=== PATIENT | female | born 1970 | race Hispanic/Latino ===

== ENCOUNTER 2018-02-25 15:26 | Emergency (ER) | payer SELFPAY ==
[2018-02-25 16:55] LABS: Absolute Lymphocytes (CBC) 0.8 K/uL (0.7-4.9); Absolute Monocytes 0.4 K/uL (0.1-1.3); Absolute Neutrophil 8.9 K/uL (1.8-8.0); Basophils % 0.2 % (0-1.3); Eosinophils % 1.2 % (0-4.4); Hematocrit 43.9 % (36.0-45.0); Lymphocytes % 8.1 % (15.3-44.8); MCH 28.1 pg (27.0-35.0); MCV 85.1 fL (80-100); MPV 9.5 fL (7.6-11.3); Monocytes % 3.8 % (3.3-12.3); RBC Red Blood Cell Count 5.16 M/uL (3.86-4.86)
[2018-02-25 17:09] LABS: Potassium 3.2 mEq/L (3.6-5.0)
[2018-02-25] MEDS ORDERED: HYDROCODONE/APAP 10/325 TAB ONE (17:23)
[2018-02-25 18:12] LABS: Urine Blood TRACE (NEG); Urine Glucose NEGATIVE (NEG); Urine Protein NEGATIVE (NEG)
--- NOTE | 2018-02-25 18:16 | ER ---
Nurse's Notes [facility] Name: Shannon Gill Age: 47 yrs Sex: Female : 1970 Arrival Date: 02/25/2018 Time: 15:30 Bed 25 Private MD: Diagnosis: Other chronic pain Presentation: 02/25 15:37 Presenting complaint: Patient states: Pain all over body that has been for years but aj has gotten worse recently. Reports burning sensation in bilateral legs and arms. Transition of care: patient was not received from another setting of care. Onset of symptoms. Care prior to arrival: None. 15:37 Method Of Arrival: Ambulatory 15:37 Acuity: JOSSY 3 aj 18:30 Initial Sepsis Screen: Does the patient meet any 2 criteria? No. Patient's initial tl3 sepsis screen is negative. Does the patient have a suspected source of infection? No. Patient's initial sepsis screen is negative. Triage Assessment: 15:39 General: Appears in no apparent distress. uncomfortable, Behavior is calm, cooperative, aj appropriate for age. Pain: Complains of pain in head, chest, abdomen, pelvis, right arm, right hand, left arm, left hand, right leg, right foot, left leg and left foot. Neuro: Level of Consciousness is awake, alert, obeys commands, Oriented to person, place, time, situation, Appropriate for age. Respiratory: Airway is patent Respiratory effort is even, unlabored, Respiratory pattern is regular, symmetrical. Derm: Skin is intact, is healthy with good turgor, Skin is pink, warm \T\ dry. normal. Musculoskeletal: Reports pain in entire body. 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 - Social history:: Smoking status: Patient uses tobacco products, smokes one pack cigarettes per day. Screenin:27 Abuse screen: Denies threats or abuse. Nutritional screening: No deficits noted. tl3 Tuberculosis screening: No symptoms or risk factors identified. Fall Risk None identified. Assessment: 16:27 General: Appears distressed, uncomfortable, well groomed, well developed, well tl3 nourished, Behavior is cooperative, appropriate for age, agitated, restless. Pain: Complains of pain in generalized pain all over. Neuro: Level of Consciousness is awake, alert, obeys commands, Oriented to person, place, time, situation, Appropriate for age. Cardiovascular: Heart tones S1 S2 present Patient's skin is warm and dry. Respiratory: Airway is patent Trachea midline Respiratory effort is even, unlabored, Respiratory pattern is regular, symmetrical, Breath sounds are clear bilaterally. GI: No signs and/or symptoms were reported involving the gastrointestinal system. : No signs and/or symptoms were reported regarding the genitourinary system. EENT: No signs and/or symptoms were reported regarding the EENT system. Derm: No signs and/or symptoms reported regarding the dermatologic system. Musculoskeletal: Reports pain in left subscapular area, left low back and left mid back. 16:33 Reassessment: pt dx with cervical cancer six years ago did not complete treatments, tl3 still has port in place to right upper chest. 17:26 Reassessment: Patient appears in no apparent distress at this time. No changes from tl3 previously documented assessment. Patient and/or family updated on plan of care and expected duration. Pain level reassessed. Patient is alert, oriented x 3, equal unlabored respirations, skin warm/dry/pink. 17:53 Reassessment: Patient appears in no apparent distress at this time. No changes from tl3 previously documented assessment. Patient and/or family updated on plan of care and expected duration. Pain level reassessed. Patient is alert, oriented x 3, equal unlabored respirations, skin warm/dry/pink. pt sleeping. 18:28 Reassessment: Patient appears in no apparent distress at this time. No changes from tl3 previously documented assessment. Patient and/or family updated on plan of care and expected duration. Pain level reassessed. Patient is alert, oriented x 3, equal unlabored respirations, skin warm/dry/pink. Johnathan at bedside to discuss POC with pt and family. Vital Signs: 15:39 BP 149 / 113; Pulse 114; Resp 23; Temp 97.9; Pulse Ox 97% on R/A; Weight 85.73 kg; aj Height 5 ft. 6 in. (167.64 cm); 16:27 BP 124 / 90; Pulse 90; Resp 20; Pulse Ox 95% ; tl3 16:33 Temp 99.8; tl3 17:26 BP 121 / 78; Pulse 104; Resp 16; Pulse Ox 100% on R/A; tl3 17:53 BP 134 / 96; Pulse 92; Resp 18; Pulse Ox 96% on R/A; tl3 18:28 BP 128 / 103; Pulse 98; Resp 18; Pulse Ox 99% ; tl3 15:39 Body Mass Index 30.51 (85.73 kg, 167.64 cm) ED Course: 15:30 Patient arrived in ED. rg4 15:38 Triage completed. 15:39 Arm band placed on right wrist. Patient placed in waiting room, Patient notified of wait time. 15:59 Sil Camara, RN is Primary Nurse. tl3 16:00 Johnathan Law NP is PHCP. pm1 16:00 Yehuda Jarrett MD is Attending Physician. pm1 16:27 Patient has correct armband on for positive identification. Bed in low position. Call tl3 light in reach. Side rails up X 1. Adult w/ patient. Pulse ox on. NIBP on. Door closed. Lights dimmed. Warm blanket given. 16:27 No provider procedures requiring assistance completed. tl3 16:55 No apparent distress. No apparent distress. Resting quietly. Awaiting lab results. tl3 16:55 Inserted saline lock: 22 gauge in right wrist, using aseptic technique. tl3 18:28 IV discontinued, intact, bleeding controlled, No redness/swelling at site. Pressure tl3 dressing applied. Administered Medications: 17:26 Drug: [place] 10 mg-325 mg 1 tabs Route: PO; tl3 17:54 Follow up: Response: No adverse reaction; Pain is decreased tl3 Outcome: 18:15 Discharge ordered by . pm1 18:28 Discharged to home ambulatory. tl3 18:28 Condition: good 18:28 Discharge instructions given to patient, family, Instructed on discharge instructions, follow up and referral plans. medication usage, Demonstrated understanding of instructions, follow-up care, medications, Prescriptions given X 1. 18:30 Patient left the ED. tl3 Signatures: Bailey Potts RN RN Johnathan Law NP SOLUTIONS CONSULTANT pm1 Sidra Mooney rg4 Sil Camara RN RN tl3
--- NOTE | 2018-02-25 18:16 | EDPHYS ---
Physician Documentation [facility] Name: Shannon Gill Age: 47 yrs Sex: Female : 1970 Arrival Date: 02/25/2018 Time: 15:30 Bed 25 Private MD: ED Physician Yehuda Jarrett HPI: 02/25 17:36 This 47 yrs old Female presents to ER via Ambulatory with complaints of Pain pm1 All Over. 17:36 Patient reports generalized pain all over her body for multiple years. Patient reports pm1 her pain is worse. Patient with chronic pain to back and palmar surface of her feet. 17:36 No chest pain or shortness of breath. No headache. 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 - Social history:: Smoking status: Patient uses tobacco products, smokes one pack cigarettes per day. ROS: 17:36 Constitutional: Negative for fever, chills, and weight loss. Generalized pain all over pm1 body, primarily to back and soles of feet Eyes: Negative for injury, pain, redness, and discharge, ENT: Negative for injury, pain, and discharge, Neck: Negative for injury, pain, and swelling, Cardiovascular: Negative for chest pain, palpitations, and edema, Respiratory: Negative for shortness of breath, cough, wheezing, and pleuritic chest pain, Abdomen/GI: Negative for abdominal pain, nausea, vomiting, diarrhea, and constipation, Back: Negative for injury and pain, MS/Extremity: Negative for injury and deformity, Skin: Negative for injury, rash, and discoloration, Neuro: Negative for headache, weakness, numbness, tingling, and seizure. Exam: 17:36 Constitutional: This is a well developed, well nourished patient who is awake, alert, pm1 and in no acute distress. Head/Face: Normocephalic, atraumatic. Eyes: Pupils equal round and reactive to light, extra-ocular motions intact. Lids and lashes normal. Conjunctiva and sclera are non-icteric and not injected. Cornea within normal limits. Periorbital areas with no swelling, redness, or edema. ENT: Nares patent. No nasal discharge, no septal abnormalities noted. Tympanic membranes are normal and external auditory canals are clear. Oropharynx with no redness, swelling, or masses, exudates, or evidence of obstruction, uvula midline. Mucous membranes moist. Neck: Trachea midline, no thyromegaly or masses palpated, and no cervical lymphadenopathy. Supple, full range of motion without nuchal rigidity, or vertebral point tenderness. No Meningismus. Chest/axilla: Normal chest wall appearance and motion. Nontender with no deformity. No lesions are appreciated. Cardiovascular: Regular rate and rhythm with a normal S1 and S2. No gallops, murmurs, or rubs. Normal PMI, no JVD. No pulse deficits. Respiratory: Lungs have equal breath sounds bilaterally, clear to auscultation and percussion. No rales, rhonchi or wheezes noted. No increased work of breathing, no retractions or nasal flaring. Abdomen/GI: Soft, non-tender, with normal bowel sounds. No distension or tympany. No guarding or rebound. No evidence of tenderness throughout. Back: No spinal tenderness. No costovertebral tenderness. Full range of motion. Skin: Warm, dry with normal turgor. Normal color with no rashes, no lesions, and no evidence of cellulitis. MS/ Extremity: Pulses equal, no cyanosis. Neurovascular intact. Full, normal range of motion. 17:36 Neuro: Orientation: is normal, Mentation: is normal, Motor: is normal, moves all fours, Sensation: is normal, no obvious gross deficits. 17:36 Psych: Behavior/mood is anxious, Affect is animated, Oriented to person, place, time, Patient has no thoughts/intents to harm self or others. Vital Signs: 15:39 BP 149 / 113; Pulse 114; Resp 23; Temp 97.9; Pulse Ox 97% on R/A; Weight 85.73 kg; aj Height 5 ft. 6 in. (167.64 cm); 16:27 BP 124 / 90; Pulse 90; Resp 20; Pulse Ox 95% ; tl3 16:33 Temp 99.8; tl3 17:26 BP 121 / 78; Pulse 104; Resp 16; Pulse Ox 100% on R/A; tl3 17:53 BP 134 / 96; Pulse 92; Resp 18; Pulse Ox 96% on R/A; tl3 18:28 BP 128 / 103; Pulse 98; Resp 18; Pulse Ox 99% ; tl3 15:39 Body Mass Index 30.51 (85.73 kg, 167.64 cm) aj MDM: 16:00 Patient medically screened. pm1 18:14 Data reviewed: vital signs. Data interpreted: Pulse oximetry: on room air is 96 %. pm1 Interpretation: normal. Counseling: I had a detailed discussion with the patient and/or guardian regarding: the historical points, exam findings, and any diagnostic results supporting the discharge/admit diagnosis, lab results, the need for outpatient follow up, to return to the emergency department if symptoms worsen or persist or if there are any questions or concerns that arise at home. 02/25 16:20 Order name: CBC with Diff; Complete Time: 17:11 pm1 02/25 16:20 Order name: BMP; Complete Time: 17:11 pm1 02/25 16:20 Order name: Urine Dipstick-Ancillary (obtain specimen); Complete Time: 16:55 pm1 02/25 17:02 Order name: Urine Dipstick--Ancillary (enter results); Complete Time: 18:14 bd 02/25 17:02 Order name: Urine --Ancillary (enter results); Complete Time: 18:14 bd 02/25 16:20 Order name: Urine Test (obtain specimen); Complete Time: 16:55 pm1 Administered Medications: 17:26 Drug: [place] 10 mg-325 mg 1 tabs Route: PO; tl3 17:54 Follow up: Response: No adverse reaction; Pain is decreased tl3 Disposition: 18:47 Co-signature as Attending Physician, Yehuda Jarrett MD. rn Disposition: 02/25/18 18:15 Discharged to Home. Impression: Other chronic pain. - Condition is Stable. - Discharge Instructions: Chronic Pain. - Prescriptions for Tramadol 50 mg Oral Tablet - take 1 tablet by ORAL route every 8 hours as needed; 12 tablet. - Medication Reconciliation Form, Thank You Letter, Prescription Opioid Use form. - Follow up: Emergency Department; When: As needed; Reason: Worsening of condition. Follow up: Private Physician; When: 2 - 3 days; Reason: Recheck today's complaints, Continuance of care, Re-evaluation by your physician. - Problem is new. - Symptoms have improved. Signatures: Dispatcher [employer] EDBailey Rojas RN RN Yehuda Otero MD MD rn Marinas, Patrick, CHICKEN HATCHERY HELPER CHICKEN HATCHERY HELPER pm1 Sil Camara, RN RN tl3 Corrections: (The following items were deleted from the chart) 18:30 18:15 02/25/2018 18:15 Discharged to Home. Impression: Other chronic pain. Condition is tl3 Stable. Forms are Medication Reconciliation Form, Thank You Letter, Antibiotic Education, Prescription Opioid Use. Follow up: Emergency Department; When: As needed; Reason: Worsening of condition. Follow up: Private Physician; When: 2 - 3 days; Reason: Recheck today's complaints, Continuance of care, Re-evaluation by your physician. Problem is new. Symptoms have improved. pm1
[2018-02-25 18:56] VITALS: TEMP 99.8
[2018-02-25 18:59] VITALS: BP 128/103; O2SAT 99
== END 2018-02-25 18:30 | disposition home or self-care (01) ==
LOC: ER 15:26
DX: G89.29 Other chronic pain (principal); F17.210 Nicotine dependence, cigarettes, uncomplicated; Z85.41 Personal history of malignant neoplasm of cervix uteri
CPT/HCPCS: 36415; 80048; 81003; 81025; 85025; 99284

== ENCOUNTER 2019-07-07 19:15 | Emergency (ER) | payer SELFPAY ==
[2019-07-07] MEDS ORDERED: IBUPROFEN 200 MG TAB PO ONE (19:41)
[2019-07-07] MEDS ORDERED: NA CHLORIDE 0.9% 1,000 ML ONE ×2 (20:38→21:58)
--- NOTE | 2019-07-07 20:43 | RAD REPORT ---
EXAM DESCRIPTION: RAD - Chest Pa And Lat (2 Views) - 07/07/2019 8:31 pm CLINICAL HISTORY: SOB Chest pain. COMPARISON: CHEST SINGLE VIEW dated 12/18/2013 FINDINGS: The lungs are clear. Small to moderate right pleural effusion. The heart is upper limit no rmal in size. Right port catheter its tip in the SVC.
[2019-07-07 21:08] LABS: Absolute Lymphocytes (CBC) 0.8 K/uL (0.7-4.9); Basophils % 0.3 % (0-1.3); Hematocrit 39.6 % (36.0-45.0); MPV 8.5 fL (7.6-11.3)
[2019-07-07 21:22] LABS: Urine Bacteria <20 /HPF (<20)
[2019-07-07 21:23] LABS: Urine Blood TRACE (NEG); Urine Glucose NEGATIVE (NEG); Urine Protein TRACE (NEG)
[2019-07-07 21:23] LABS: Urine Culture Reflex Order NOT NEEDED; Urine Mucus 1+ /HPF (NONE SEEN)
[2019-07-07 21:29] LABS: Potassium 3.5 mmol/L (3.5-5.1)
[2019-07-07] MEDS ORDERED: DIPHENHYDRAMINE 50 MG/ML VIAL ONE (21:58)
[2019-07-07] MEDS ORDERED: KETOROLAC 30 MG/ML INJ ONE (21:58)
--- NOTE | 2019-07-08 00:02 | ER ---
Nurse's Notes [facility] [place], [place] Name: Shannon Gill Age: 49 yrs Sex: Female : 1970 Arrival Date: 07/07/2019 Time: 19:18 Bed 8 Private MD: Diagnosis: Pleural effusion, not elsewhere classified;Acute upper respiratory infection, unspecified Presentation: 07/07 19:32 Presenting complaint: Patient states: "I've been having this for going on 3 days. I aj1 have the chills. I get hot flashes my legs ache and my head feels like I have a stacy hammer in there and this cough started today." Patient reports that she took Dayquil 2 hours ago. TMax 102 at home. Transition of care: patient was not received from another setting of care. Onset of symptoms was June 2019. Risk Assessment: Do you want to hurt yourself or someone else? Patient reports no desire to harm self or others. Initial Sepsis Screen: Does the patient meet any 2 criteria? RR > 20 per min. Temp <36.0*C (96.8*F)) or > 38.3*C (100.9*F). HR > 90 bpm. Yes Does the patient have a suspected source of infection? No. Patient's initial sepsis screen is negative. Care prior to arrival: None. 19:32 Method Of Arrival: Ambulatory aj 19:32 Acuity: JOSSY 3 aj1 Triage Assessment: 19:35 General: Appears in no apparent distress. uncomfortable, Behavior is anxious, crying. aj1 General: Appears Behavior is. Pain: Complains of pain in forehead Pain does not radiate. Pain currently is 9 out of 10 on a pain scale. Quality of pain is described as pounding. Neuro: Level of Consciousness is awake, alert, obeys commands, Oriented to person, place, time, situation. Cardiovascular: Patient's skin is warm and dry. Respiratory: Airway is patent Respiratory effort is even, unlabored, Respiratory pattern is regular, symmetrical. GI: Patient currently denies vomiting. 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 - Social history:: Smoking status: Patient/guardian denies using tobacco. - Ebola Screening: : Patient denies travel to an Ebola-affected area in the 21 days before illness onset. Screenin:30 Abuse screen: Denies threats or abuse. Denies injuries from another. Nutritional aa1 screening: No deficits noted. Tuberculosis screening: No symptoms or risk factors identified. Fall Risk None identified. Assessment: 20:30 General: Appears in no apparent distress. comfortable, Behavior is calm, cooperative, aa1 appropriate for age. Pain: Complains of pain in face and forehead Quality of pain is described as pressure, throbbing, Pain began 2-3 days ago. Is continuous. Neuro: Level of Consciousness is awake, alert, obeys commands, Oriented to person, place, time, situation, Moves all extremities. Full function Gait is steady, Speech is normal, Reports headache frontal area. Cardiovascular: Heart tones S1 S2 present Rhythm is regular. Respiratory: Airway is patent Respiratory effort is even, unlabored, Respiratory pattern is regular, symmetrical. GI: No signs and/or symptoms were reported involving the gastrointestinal system. : No signs and/or symptoms were reported regarding the genitourinary system. EENT: No signs and/or symptoms were reported regarding the EENT system. Derm: Skin is intact, is healthy with good turgor, Skin is pink, warm \\T\\ dry. Musculoskeletal: Circulation, motion, and sensation intact. Capillary refill < 3 seconds. 21:30 Reassessment: Patient appears in no apparent distress at this time. Patient and/or aa1 family updated on plan of care and expected duration. Pain level reassessed. Patient is alert, oriented x 3, equal unlabored respirations, skin warm/dry/pink. Awaiting provider reassement. 22:30 Reassessment: Patient appears in no apparent distress at this time. Patient and/or aa1 family updated on plan of care and expected duration. Pain level reassessed. Patient is alert, oriented x 3, equal unlabored respirations, skin warm/dry/pink. Awaiting CT scan. 23:05 Reassessment: Patient appears in no apparent distress at this time. Patient and/or aa1 family updated on plan of care and expected duration. Pain level reassessed. Patient is alert, oriented x 3, equal unlabored respirations, skin warm/dry/pink. Awaiting CT results Patient states feeling better. Patient states symptoms have improved. 07/08 00:25 Reassessment: Patient appears in no apparent distress at this time. Patient and/or aa1 family updated on plan of care and expected duration. Pain level reassessed. Patient is alert, oriented x 3, equal unlabored respirations, skin warm/dry/pink. Discussed d/c \\T\\ f/u instructions with pt; denies questions or concerns at this time Patient denies pain at this time. Vital Signs: 07/07 19:35 BP 137 / 102; Pulse 126; Resp 24; Temp 101.3; Pulse Ox 97% on R/A; Weight 90.72 kg (R); [facility] Height 5 ft. 6 in. (167.64 cm) (R); Pain 9/10; 20:59 BP 146 / 109; Pulse 104; Resp 20; Temp 99.3; Pulse Ox 100% on R/A; Pain 8/10; aa1 22:00 BP 133 / 93; Pulse 102; Resp 18; Pulse Ox 99% on R/A; aa1 23:05 BP 115 / 81; Pulse 92; Resp 18; Temp 98.9; Pulse Ox 97% on R/A; Pain 0/10; aa1 07/08 00:25 BP 119 / 86; Pulse 92; Resp 18; Temp 98.5; Pulse Ox 99% on R/A; Pain 0/10; aa1 07/07 19:35 Body Mass Index 32.28 (90.72 kg, 167.64 cm) [facility] ED Course: 07/07 19:18 Patient arrived in ED. cl3 19:27 Arm band placed on. sg 19:34 Triage completed. aj1 20:25 Iman Amezquita FNP-C is [facility]. snw 20:25 Raciel Sung MD is Attending Physician. snw 20:30 Patient has correct armband on for positive identification. Placed in gown. Bed in low aa1 position. Call light in reach. Pulse ox on. NIBP on. Warm blanket given. 20:32 Chest Pa And Lat (2 Views) XRAY In Process Unspecified. EDMS 20:40 Initial lab(s) drawn, by me, sent to lab. Urine collected: clean catch specimen, stephani aa1 colored. Inserted saline lock: 20 gauge in right antecubital area, using aseptic technique. Blood collected. 20:58 Macrina Oneill, MATT is Primary Nurse. aa1 22:30 CT Chest For PE Angio In Process Unspecified. EDMS 23:59 Adonis Chavez MD is Referral Physician. snw 07/08 00:25 No provider procedures requiring assistance completed. IV discontinued, intact, aa1 bleeding controlled, No redness/swelling at site. Pressure dressing applied. Administered Medications: 07/07 19:40 Drug: Motrin 600 mg Route: PO; aj1 21:01 Follow up: Response: No adverse reaction; Temperature is decreased aa1 20:40 Drug: NS 0.9% 1000 ml Route: IV; Rate: 1 bolus; Site: right antecubital; aa1 21:10 Follow up: IV Status: Completed infusion; IV Intake: 1000ml aa1 21:55 Drug: NS 0.9% 1000 ml Route: IV; Rate: 1 bolus; Site: right antecubital; aa1 22:30 Follow up: IV Status: Completed infusion; IV Intake: 1000ml aa1 21:55 Drug: TORadol 30 mg Route: IVP; Site: right antecubital; aa1 23:05 Follow up: Response: No adverse reaction; Pain is decreased aa1 21:56 Drug: Benadryl 12.5 mg Route: IVP; Site: right antecubital; aa1 23:05 Follow up: Response: No adverse reaction; Marked relief of symptoms aa1 07/08 00:15 Drug: Albuterol 2.5 mg Route: Inhalation; aa1 00:15 Drug: Decadron - Dexamethasone 10 mg Route: IVP; Site: right antecubital; aa1 00:25 Follow up: Response: No adverse reaction; Medication administered at discharge. aa1 Intake: 07/07 21:10 IV: 1000ml; Total: 1000ml. aa1 22:30 IV: 1000ml; Total: 2000ml. aa1 Outcome: 23:59 Discharge ordered by . snw 07/08 00:25 Discharged to home ambulatory, with family. aa1 Condition: good Discharge instructions given to patient, family, Instructed on discharge instructions, follow up and referral plans. medication usage, Demonstrated understanding of instructions, follow-up care, medications, Prescriptions given X 1. 00:27 Patient left the ED. aa1 Signatures: Dispatcher [employer] EDValeria Vargas RN RN aj1 Chu Peralta RN RN sg Autenrieth, Alissa, RN RN aa1 Iman Amezquita, BUILDING MAINTENANCE CUSTODIAN-C BUILDING MAINTENANCE CUSTODIAN-Csnw Roland Mcfarlane cl3
--- NOTE | 2019-07-08 00:05 | EDPHYS ---
Physician Documentation [facility] Name: Shannon Gill Age: 49 yrs Sex: Female : 1970 Arrival Date: 07/07/2019 Time: 19:18 Bed 8 Private MD: ED Physician Raciel Sung HPI: 07/07 23:28 This 49 yrs old Female presents to ER via Ambulatory with complaints of Fever. snw 23:28 The patient reports fever, not measured (subjective). Onset: The symptoms/episode snw began/occurred acutely. Modifying factors: a few months of shortness of breath. Associated signs and symptoms: Pertinent positives: cough, sinus congestion, hoarse voice. Severity of symptoms: At their worst the symptoms were moderate in the emergency department the symptoms are unchanged. pt states s/s have been ongoing for some time, cough and hoarse voice began 1-2 days ago. The patient has not recently seen a physician. 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 - Social history:: Smoking status: Patient/guardian denies using tobacco. - Ebola Screening: : Patient denies travel to an Ebola-affected area in the 21 days before illness onset. ROS: 23:26 Eyes: Negative for injury, pain, redness, and discharge, ENT: Negative for injury, snw pain, and discharge, Neck: Negative for injury, pain, and swelling, Cardiovascular: Negative for chest pain, palpitations, and edema, Abdomen/GI: Negative for abdominal pain, nausea, vomiting, diarrhea, and constipation, Back: Negative for injury and pain, : Negative for injury, bleeding, discharge, and swelling, MS/Extremity: Negative for injury and deformity, Skin: Negative for injury, rash, and discoloration, Neuro: Negative for headache, weakness, numbness, tingling, and seizure, Psych: Negative for depression, anxiety, suicide ideation, homicidal ideation, and hallucinations. 23:26 Constitutional: Positive for body aches, chills, fever, malaise. 23:26 Respiratory: Positive for cough, with no reported sputum, shortness of breath. Exam: 21:56 Constitutional: This is a well developed, well nourished patient who is awake, alert, snw and in no acute distress. Head/Face: Normocephalic, atraumatic. Eyes: Pupils equal round and reactive to light, extra-ocular motions intact. Lids and lashes normal. Conjunctiva and sclera are non-icteric and not injected. Cornea within normal limits. Periorbital areas with no swelling, redness, or edema. ENT: Nares patent. No nasal discharge, no septal abnormalities noted. Tympanic membranes are normal and external auditory canals are clear. Oropharynx with no redness, swelling, or masses, exudates, or evidence of obstruction, uvula midline. Mucous membranes moist. Hoarse voice Neck: Trachea midline, no thyromegaly or masses palpated, and no cervical lymphadenopathy. Supple, full range of motion without nuchal rigidity, or vertebral point tenderness. No Meningismus. Chest/axilla: Normal chest wall appearance and motion. Nontender with no deformity. No lesions are appreciated. Cardiovascular: Regular rate and rhythm with a normal S1 and S2. No gallops, murmurs, or rubs. Normal PMI, no JVD. No pulse deficits. Respiratory: Lungs have equal breath sounds bilaterally, clear to auscultation and percussion. No rales, rhonchi or wheezes noted. No increased work of breathing, no retractions or nasal flaring. Abdomen/GI: Soft, non-tender, with normal bowel sounds. No distension or tympany. No guarding or rebound. No evidence of tenderness throughout. Back: No spinal tenderness. No costovertebral tenderness. Full range of motion. Skin: Warm, dry with normal turgor. Normal color with no rashes, no lesions, and no evidence of cellulitis. MS/ Extremity: Pulses equal, no cyanosis. Neurovascular intact. Full, normal range of motion. Neuro: Awake and alert, GCS 15, oriented to person, place, time, and situation. Cranial nerves II-XII grossly intact. Motor strength 5/5 in all extremities. Sensory grossly intact. Cerebellar exam normal. Normal gait. Psych: Awake, alert, with orientation to person, place and time. Behavior, mood, and affect are within normal limits. Vital Signs: 19:35 BP 137 / 102; Pulse 126; Resp 24; Temp 101.3; Pulse Ox 97% on R/A; Weight 90.72 kg (R); aj1 Height 5 ft. 6 in. (167.64 cm) (R); Pain 9/10; 20:59 BP 146 / 109; Pulse 104; Resp 20; Temp 99.3; Pulse Ox 100% on R/A; Pain 8/10; aa1 22:00 BP 133 / 93; Pulse 102; Resp 18; Pulse Ox 99% on R/A; aa1 23:05 BP 115 / 81; Pulse 92; Resp 18; Temp 98.9; Pulse Ox 97% on R/A; Pain 0/10; aa1 07/08 00:25 BP 119 / 86; Pulse 92; Resp 18; Temp 98.5; Pulse Ox 99% on R/A; Pain 0/10; aa1 07/07 19:35 Body Mass Index 32.28 (90.72 kg, 167.64 cm) [facility] MDM: 07/07 20:28 Patient medically screened. snw 07/08 00:00 Data reviewed: vital signs, nurses notes. Data interpreted: Pulse oximetry: on room air snw is 97 %. Interpretation: acceptable. Counseling: I had a detailed discussion with the patient and/or guardian regarding: the historical points, exam findings, and any diagnostic results supporting the discharge/admit diagnosis, lab results, radiology results, the need for outpatient follow up, to return to the emergency department if symptoms worsen or persist or if there are any questions or concerns that arise at home. Special discussion: I discussed with the patient the need to follow-up with the PCP/specialist for the noted incidental finding on X-ray/CT scanning. Based on the history and exam findings, there is no indication for further emergent testing or inpatient evaluation. I discussed with the patient/guardian the need to see the primary care provider for further evaluation of the symptoms. I discussed with the patient/guardian the need to see the general car yard supervisor for further evaluation of the symptoms. pleural effusion, concerning with hx of malignancy. Encouraged to f/u with Dr. Chavez for eval and tx. 07/07 19:38 Order name: Flu; Complete Time: 20:28 [facility] 07/07 19:38 Order name: Strep; Complete Time: 20:28 [facility] 07/07 20:26 Order name: Basic Metabolic Panel; Complete Time: 21:31 snw 07/07 20:26 Order name: CBC with Diff; Complete Time: 21:16 snw 07/07 20:26 Order name: Lipase; Complete Time: 21:31 snw 07/07 20:26 Order name: Urine Culture [facility] 07/07 19:43 Order name: Chest Pa And Lat (2 Views) XRAY; Complete Time: 20:54 [facility] 07/07 20:26 Order name: Urine Microscopic Only; Complete Time: 21:31 w 07/07 20:30 Order name: Throat Culture [facility] 07/07 21:04 Order name: Urine Dipstick--Ancillary (enter results); Complete Time: 21:31 [facility] 07/07 21:57 Order name: CT Chest For PE Angio [facility] 07/07 20:26 Order name: Labs collected and sent; Complete Time: 20:59 w 07/07 20:26 Order name: Urine Dipstick-Ancillary (obtain specimen); Complete Time: 20:59 snw Administered Medications: 07/07 19:40 Drug: Motrin 600 mg Route: PO; aj1 21:01 Follow up: Response: No adverse reaction; Temperature is decreased aa1 20:40 Drug: NS 0.9% 1000 ml Route: IV; Rate: 1 bolus; Site: right antecubital; aa1 21:10 Follow up: IV Status: Completed infusion; IV Intake: 1000ml aa1 21:55 Drug: NS 0.9% 1000 ml Route: IV; Rate: 1 bolus; Site: right antecubital; aa1 22:30 Follow up: IV Status: Completed infusion; IV Intake: 1000ml aa1 21:55 Drug: TORadol 30 mg Route: IVP; Site: right antecubital; aa1 23:05 Follow up: Response: No adverse reaction; Pain is decreased aa1 21:56 Drug: Benadryl 12.5 mg Route: IVP; Site: right antecubital; aa1 23:05 Follow up: Response: No adverse reaction; Marked relief of symptoms aa07/08 00:15 Drug: Albuterol 2.5 mg Route: Inhalation; aa1 00:15 Drug: Decadron - Dexamethasone 10 mg Route: IVP; Site: right antecubital; aa1 00:25 Follow up: Response: No adverse reaction; Medication administered at discharge. aa1 Disposition: 12:48 Co-signature as Attending Physician, Raciel Sung MD I agree with the assessment and jeaneth plan of care. Disposition: 07/07/19 23:59 Discharged to Home. Impression: Pleural effusion, not elsewhere classified, Acute upper respiratory infection, unspecified. - Condition is Stable. - Discharge Instructions: Pleural Effusion, Upper Respiratory Infection, Adult, Cool Mist Vaporizer, Rehydration, Adult. - Prescriptions for Albuterol Sulfate 90 mcg/actuation - inhale 1-2 puff by INHALATION route every 4-6 hours; 1 Inhaler. - Medication Reconciliation Form, Thank You Letter, Antibiotic Education, Prescription Opioid Use form. - Follow up: Private Physician; When: 1 - 2 days; Reason: Recheck today's complaints, Continuance of care, Re-evaluation by your physician. Follow up: Adonis Chavez MD; When: 5 - 6 days; Reason: Recheck today's complaints, Continuance of care. Signatures: Dispatcher [employer] Valeria Foster RN RN aj1 Macrina Oneill RN RN aa1 Raciel Sung MD MD cha Therrien, Shelly, CELLAR SUPERVISOR-C CELLAR SUPERVISOR-Csnw Corrections: (The following items were deleted from the chart) 00:27 07/07 23:59 07/07/2019 23:59 Discharged to Home. Impression: Pleural effusion, not aa1 elsewhere classified; Acute upper respiratory infection, unspecified. Condition is Stable. Forms are Medication Reconciliation Form, Thank You Letter, Antibiotic Education, Prescription Opioid Use. Follow up: Private Physician; When: 1 - 2 days; Reason: Recheck today's complaints, Continuance of care, Re-evaluation by your physician. Follow up: Adonis Chavez; When: 5 - 6 days; Reason: Recheck today's complaints, Continuance of care. snw
[2019-07-08] MEDS ORDERED: dexAMETHasone 10 MG/ML VIAL ONE (00:12)
[2019-07-08] MEDS ORDERED: ALBUTEROL 2.5 MG/3 ML NEB SOL ONE (00:12)
[2019-07-08 01:45] VITALS: BP 115/81; TEMP 98.9; O2SAT 97
--- NOTE | 2019-07-08 11:20 | RAD REPORT ---
EXAM DESCRIPTION: CT - Chest For Pe Angio - 07/08/2019 2:00 am CLINICAL HISTORY: The patient is 49 years old and is Female; SOB, pleural effusion TECHNIQUE: Axial computed tomographic angiography images of the chest with intravenous contrast. S agittal and coronal reformatted images were created and reviewed. This CT exam was performed using one or more of the following dose reduction techniques: automated exposure control, adjustment of t he mA and/or kV according to patient size, and/or use of iterative reconstruction technique. MIP reconstructed images were created and reviewed. COMPARISON: No relevant prior studies available. FINDINGS: ARTIFACTS: The exam is suboptimal secondary to motion artifact. PULMONARY ARTERIES: The main pulmonary arteries and segmental branches opacify normally and are without filling defect. AORTA: No acute findings. No thoracic aortic aneurysm. LUNGS: Compressive atelectasis within the right lower lobe is noted. No mass. PLEURAL SPACE: A moderate to large right pleural effusion is noted. No pneumothorax. HEART: Unremarkable. No cardiomegaly. No significant pericardial effusion. No evidence of RV dysfunction. BONES/JOINTS: No acute fracture. No dislocation. SOFT TISSUES: Unremarkable. LYMPH NODES: Unremarkable. No enlarged lymph nodes. LIVER: There is a diffuse decrease in hepatic parenchymal density, consistent with fatty infiltr ation. TUBES, LINES AND DEVICES: A right chest port is present with the tip in the SVC. IMPRESSION: 1. The main pulmonary arteries and segmental branches opacify normally and are without filling defect. The remainder of the pulmonary vessels are not as well evaluated secondary to rudy on. 2. Moderate to large right pleural effusion with associated compressive atelectasis. Electronically signed by: Deann Vargas MD 07/07/2019 10:51 PM CDT Due to temporary technical issues with the PACS/Fluency reporting system, reports are being signed by the in house radiologist as a courtesy to ensure prompt reporting. The interpreting radiologist is f ully responsible for the content of the report.
== END 2019-07-08 00:27 | disposition home or self-care (01) ==
LOC: ER 19:15
DX: J90 Pleural effusion, not elsewhere classified (principal); J06.9 Acute upper respiratory infection, unspecified; Z85.41 Personal history of malignant neoplasm of cervix uteri
CPT/HCPCS: 36415; 71046; 71275; 80048; 81003; 81015; 83690; 85025; 87070; 87081; 87086; 87088; 87804; 96361; 96374; 96375; 99284; J1100; J7030; Q9967

== ENCOUNTER 2019-07-31 21:42 | Emergency (ER) | payer SELFPAY ==
[2019-07-31] MEDS ORDERED: MORPHINE 4 MG/ML SYR ONE (22:45)
[2019-07-31] MEDS ORDERED: KETOROLAC 30 MG/ML INJ ONE (22:46)
[2019-07-31] MEDS ORDERED: Levofloxacin 750mg IV 750 MG/150 ML BAG IV ONE (22:46)
[2019-07-31] MEDS ORDERED: AZITHROMYCIN 500 MG INJ IVPB ONE (22:46)
[2019-07-31] MEDS ORDERED: ONDANSETRON 4 MG/2 ML VIAL ONE (22:46)
[2019-07-31] MEDS ORDERED: NA CHLORIDE 0.9% 250 ML ONE (22:46)
[2019-07-31] MEDS ORDERED: CEFTRIAXONE/SWI 1gm 2 GM/20 ML SYR ONE (22:47)
[2019-07-31] MEDS ORDERED: NA CHLORIDE 0.9% 1,000 ML ONE ×2 (22:47→23:57)
[2019-07-31 23:12] LABS: Absolute Lymphocytes (CBC) 0.8 K/uL (0.7-4.9); Basophils % 0.5 % (0-1.3); Hematocrit 38.4 % (36.0-45.0); Lymphocytes % 10.7 % (15.3-44.8); MPV 7.7 fL (7.6-11.3); RBC Red Blood Cell Count 4.56 M/uL (3.86-4.86)
[2019-07-31 23:15] LABS: Protime INR 1.27
[2019-07-31] MEDS ORDERED: ACETAMINOPHEN 325 MG TABLET ONE (23:29)
[2019-07-31 23:32] LABS: ALT/SGPT 27 U/L (12-78); AST/SGOT 20 U/L (15-37); Albumin 3.1 g/dL (3.4-5.0); Alkaline Phosphatase 90 U/L (45-117); BUN Blood Urea Nitrogen 15 mg/dL (7-18); Bicarbonate 25 mmol/L (21-32); Bilirubin Direct 0.1 mg/dL (0-0.2); Bilirubin Total 0.4 mg/dL (0.2-1.0); Glucose Level 103 mg/dL (74-106); Lipase 85 U/L (73-393); Magnesium 1.8 mg/dL (1.8-2.4); NT PRO-BNP 95 pg/mL (<125); Potassium 3.5 mmol/L (3.5-5.1); Protein, Total 7.6 g/dL (6.4-8.2); Sodium Level 143 mmol/L (136-145); Troponin (Emerg Dept Use Only) < 0.02 ng/mL (0.0-0.045)
--- NOTE | 2019-07-31 23:40 | ER ---
Nurse's Notes [facility] Name: Shannon Gill Age: 49 yrs Sex: Female : 1970 Arrival Date: 07/31/2019 Time: 21:42 Bed 4 Private MD: Diagnosis: Dyspnea;Pleural effusion in conditions classified elsewhere-right, large;Atelectasis;Hydronephrosis with renal and ureteral calculous obstruction-severe, 6mm right mid ureter Presentation: 07/31 21:56 Presenting complaint: Patient states: Shortness of breath for the past 3 weeks, states aj1 that she was seen here and diagnosed with bronchitis 3 weeks ago and she is not feeling better. Patient states that she has not followed up with anyone since her visit to the emergency room. States that she feels her shortness of breath is worse if she lays flat. Reports pain to right ribs. Denies injury to the area. Denies fever. Transition of care: patient was not received from another setting of care. Onset of symptoms was June 2019. Risk Assessment: Do you want to hurt yourself or someone else? Patient reports no desire to harm self or others. Initial Sepsis Screen: Does the patient meet any 2 criteria? HR > 90 bpm. No. Patient's initial sepsis screen is negative. Does the patient have a suspected source of infection? Yes: Productive cough/pneumonia. Care prior to arrival: None. 21:56 Method Of Arrival: Ambulatory [facility] 21:56 Acuity: JOSSY 3 aj1 Triage Assessment: 22:01 General: Appears in no apparent distress. uncomfortable, Behavior is cooperative, aj1 anxious, restless. Pain: Complains of pain in right lateral anterior chest Pain does not radiate. Pain currently is 10 out of 10 on a pain scale. Neuro: Level of Consciousness is awake, alert, obeys commands, Oriented to person, place, time, situation. Cardiovascular: Patient's skin is warm and dry. Respiratory: Reports shortness of breath at rest cough that is non-productive, dry, Airway is patent Respiratory effort is even, unlabored, Respiratory pattern is regular, symmetrical, Onset: The symptoms/episode began/occurred 3 weeks ago. Historical: - Allergies: 22: No Known Allergies; aj1 - Home Meds: 22: None [Active]; aj1 - PMHx: 22:01 cervical cancer; aj1 - Immunization history:: Flu vaccine is not up to date. - Social history:: Smoking status: Patient/guardian denies using tobacco. - Ebola Screening: : Patient denies travel to an Ebola-affected area in the 21 days before illness onset. - Family history:: not pertinent. Screenin:40 Abuse screen: Denies threats or abuse. Nutritional screening: No deficits noted. ea Tuberculosis screening: No symptoms or risk factors identified. Fall Risk IV access (20 points). Assessment: 22:21 General: Appears uncomfortable, Behavior is anxious. Pain: Complains of pain in right lp1 diaphragm Pain currently is 8 out of 10 on a pain scale. Quality of pain is described as aching. Neuro: Level of Consciousness is awake, alert, obeys commands, Oriented to person, place, time, situation. Cardiovascular: Patient's skin is warm and dry. Respiratory: Reports shortness of breath Airway is patent Trachea midline Respiratory effort is labored, Respiratory pattern is hyperventilation Breath sounds with wheezes in right posterior middle lobe and right posterior lower lobe the patient has moderate shortness of breath. GI: No signs and/or symptoms were reported involving the gastrointestinal system. : No signs and/or symptoms were reported regarding the genitourinary system. EENT: No signs and/or symptoms were reported regarding the EENT system. Derm: Skin is pink, warm \T\ dry. Musculoskeletal: No deficits noted. 23:45 Reassessment: Patient and/or family updated on plan of care and expected duration. Pain ea level reassessed. Patient is alert, oriented x 3, equal unlabored respirations, skin warm/dry/pink. 08/01 00:35 Reassessment: Hospitalist at bedside to discuss care with patient and family. lp1 01:50 Reassessment: Patient and/or family updated on plan of care and expected duration. Pain ea level reassessed. Pt resting with eyes closed, respirations even and unlabored, chest expansions even and symmetrical. No s/s of pain or discomfort noted at this time. 02:40 Reassessment: Report called to Margarita Pearce RN at [facility] Room 1046. lp1 03:30 General: Appears in no apparent distress. Behavior is calm, cooperative. lp1 Cardiovascular: Patient's skin is warm and dry. Respiratory: Respiratory effort is even. Derm: Skin is pink, warm \T\ dry. 03:40 Reassessment: EMS at bedside for transfer. lp1 Vital Signs: 07/31 22:01 BP 159 / 114; Pulse 108; Resp 20; Temp 99.6; Pulse Ox 97% on R/A; Weight 88.9 kg (R); aj1 Pain 07/21; 23:45 BP 130 / 95; Pulse 104; Resp 21; Pulse Ox 95% on R/A; ea 08/01 01:30 BP 126 / 99; Pulse 94; Resp 18; Pulse Ox 97% ; ea 02:00 BP 132 / 96; Pulse 81; Resp 20; Pulse Ox 96% on R/A; ea 03:30 BP 142 / 78; Pulse 94; Resp 22; Temp 97; Pulse Ox 96% on R/A; lp1 07/31 22:01 Patient is restless while blood pressure is being taken, moving arm repeatedly aj1 ED Course: 21:42 Patient arrived in ED. ds1 22:01 Triage completed. aj1 22:01 Arm band placed on Patient placed in an exam room. aj1 22:05 Raciel Sung MD is Attending Physician. jeaneth 22:07 La Dunlap, MATT is Primary Nurse. lp1 22:22 Patient has correct armband on for positive identification. Placed in gown. Bed in low lp1 position. site monitor on. Pulse ox on. NIBP on. 22:39 Radiology exam delayed due to lab results not completed at this time. (BUN/Creatinine). bq 22:40 Chest Pa And Lat (2 Views) XRAY In Process Unspecified. EDMS 22:40 Radiology exam delayed due to test not completed at this time. bq 23:10 Inserted saline lock: 22 gauge in right antecubital area, using aseptic technique. ea 23:27 Radiology exam delayed due to lab results not completed at this time. (BUN/Creatinine) kw1 test not completed at this time. 23:36 Rc Wan is Hospitalizing Provider. [facility] 08/01 00:51 CT Aorta for Dissection: ro pe, dissection In Process Unspecified. EDMS 02:28 No provider procedures requiring assistance completed. Patient admitted, IV remains in ea place. Administered Medications: 07/31 23:20 Drug: Zofran 4 mg Route: IVP; Site: right antecubital; ea 08/01 00:41 Follow up: Response: No adverse reaction ea 07/31 23:23 Not Given (Patient Refused): morphine 4 mg IVP once; RASS on ADMIN: Combtv4, Very ea Agttd3, Agttd2, Rstlss1, AlertClm0, Drwsy-1, Lt Sdtn-2, Mod Sdtn-3, Dp Sdtn-4, UnArsble-5 23:23 Drug: Rocephin 2 grams Route: IV; Rate: per protocol; Site: right antecubital; ea 08/01 00:00 Follow up: Response: No adverse reaction; IV Status: Completed infusion; IV Intake: 20mlea 07/31 23:23 Drug: NS 0.9% 1000 ml Route: IV; Rate: 1 bolus; Site: left antecubital; ea 08/01 00:53 Follow up: IV Status: Completed infusion; IV Intake: 1000ml lp1 07/31 23:24 Drug: Zithromax 500 mg Route: IVPB; Infused Over: 1 hrs; Site: right antecubital; ea 08/01 00:53 Follow up: IV Status: Completed infusion; IV Intake: 250ml lp1 07/31 23:30 Drug: TORadol 30 mg Route: IVP; Site: right antecubital; ea 08/01 00:00 Follow up: Response: No adverse reaction; Pain is decreased ea 07/31 23:37 Drug: Tylenol 650 mg Route: PO; ea 08/01 00:00 Follow up: Response: No adverse reaction ea 00:00 Drug: NS 0.9% 1000 ml Route: IV; Rate: 1 bolus; Site: right antecubital; ea 04:06 Follow up: IV Status: Completed infusion; IV Intake: 1000ml lp1 00:53 Drug: levofloxacin 750 mg Volume: 150 ml; Route: IVPB; Infused Over: 90 mins; Site: lp1 right antecubital; 02:29 Follow up: Response: No adverse reaction; IV Status: Completed infusion ea Intake: 00:00 IV: 20ml; Total: 20ml. ea 00:53 IV: 1000ml; Total: 1020ml. lp1 00:53 IV: 250ml; Total: 1270ml. lp1 04:06 IV: 1000ml; Total: 2270ml. lp1 Outcome: 07/31 23:39 Decision to Hospitalize by Provider. [facility] 08/01 01:23 ER care complete, transfer ordered by . [facility] 04:05 Transferred by ground EMS to [facility], [facility], Transfer form completed. lp1 X-rays sent w/ patient. 04:05 Condition: stable 04:05 Instructed on the need for transfer. 04:05 Patient left the ED. lp1 Signatures: Dispatcher [employer] EDValeria Vargas, RN RN aj1 Raciel Sung MD MD cha Quilty, Betty bq Sanford, Demi ds1 La Dunlap RN RN lp1 Monica Scruggs RN RN ea Wilhelm, Kimberly kw1 Corrections: (The following items were deleted from the chart) 01:03 07/31 22:21 Respiratory: Airway is patent Trachea midline Respiratory effort is lp1 labored, Respiratory pattern is hyperventilation Breath sounds with wheezes in right posterior middle lobe and right posterior lower lobe lp1
--- NOTE | 2019-07-31 23:40 | EDPHYS ---
Physician Documentation [facility] Name: Shannon Gill Age: 49 yrs Sex: Female : 1970 Arrival Date: 07/31/2019 Time: 21:42 Bed 4 Private MD: ED Physician Raciel Sung HPI: 07/31 22:35 This 49 yrs old Female presents to ER via Ambulatory with complaints of Pain jeaneth Under Rib, Shortness Of Breath, Cough. 22:35 The patient has shortness of breath at rest, with light activity. Onset: The jeaneth symptoms/episode began/occurred 14 day(s) ago. Duration: The symptoms are continuous. The patient's shortness of breath is aggravated by exertion, light activity. Associated signs and symptoms: The patient has no apparent associated signs or symptoms. Severity of symptoms: At their worst the symptoms were mild in the emergency department the symptoms are unchanged. The patient has not experienced similar symptoms in the past. Historical: - Allergies: 22:01 No Known Allergies; aj1 - Home Meds: 22:01 None [Active]; aj1 - PMHx: 22:01 cervical cancer; aj1 - Immunization history:: Flu vaccine is not up to date. - Social history:: Smoking status: Patient/guardian denies using tobacco. - Ebola Screening: : Patient denies travel to an Ebola-affected area in the 21 days before illness onset. - Family history:: not pertinent. ROS: 22:35 Constitutional: Negative for fever, chills, and weight loss, Eyes: Negative for injury, jeaneth pain, redness, and discharge, ENT: Negative for injury, pain, and discharge, Neck: Negative for injury, pain, and swelling, Abdomen/GI: Negative for abdominal pain, nausea, vomiting, diarrhea, and constipation, Back: Negative for injury and pain, : Negative for injury, bleeding, discharge, and swelling, MS/Extremity: Negative for injury and deformity, Skin: Negative for injury, rash, and discoloration, Neuro: Negative for headache, weakness, numbness, tingling, and seizure, Psych: Negative for depression, anxiety, suicide ideation, homicidal ideation, and hallucinations, Allergy/Immunology: Negative for hives, rash, and allergies, Endocrine: Negative for neck swelling, polydipsia, polyuria, polyphagia, and marked weight changes. 22:35 Cardiovascular: Positive for chest pain, palpitations. 22:35 Respiratory: Positive for cough, pleurisy, of the , shortness of breath. Exam: 22:35 Constitutional: This is a well developed, well nourished patient who is awake, alert, jeaneth and in no acute distress. Head/Face: Normocephalic, atraumatic. Eyes: Pupils equal round and reactive to light, extra-ocular motions intact. Lids and lashes normal. Conjunctiva and sclera are non-icteric and not injected. Cornea within normal limits. Periorbital areas with no swelling, redness, or edema. ENT: Nares patent. No nasal discharge, no septal abnormalities noted. Tympanic membranes are normal and external auditory canals are clear. Oropharynx with no redness, swelling, or masses, exudates, or evidence of obstruction, uvula midline. Mucous membranes moist. Neck: Trachea midline, no thyromegaly or masses palpated, and no cervical lymphadenopathy. Supple, full range of motion without nuchal rigidity, or vertebral point tenderness. No Meningismus. Chest/axilla: Normal chest wall appearance and motion. Nontender with no deformity. No lesions are appreciated. Abdomen/GI: Soft, non-tender, with normal bowel sounds. No distension or tympany. No guarding or rebound. No evidence of tenderness throughout. Back: No spinal tenderness. No costovertebral tenderness. Full range of motion. Female : Normal external genitalia. Skin: Warm, dry with normal turgor. Normal color with no rashes, no lesions, and no evidence of cellulitis. MS/ Extremity: Pulses equal, no cyanosis. Neurovascular intact. Full, normal range of motion. Neuro: Awake and alert, GCS 15, oriented to person, place, time, and situation. Cranial nerves II-XII grossly intact. Motor strength 5/5 in all extremities. Sensory grossly intact. Cerebellar exam normal. Normal gait. Psych: Awake, alert, with orientation to person, place and time. Behavior, mood, and affect are within normal limits. 22:35 Cardiovascular: Rate: tachycardic, Rhythm: regular, Pulses: Pulses are 4+ in bilateral radial, brachial, femoral, popliteal, posterior tibial and and dorsalis pedis arteries.. Heart sounds: normal, normal S1and S2, no S3 or S4, no murmur, no rub, no gallop, Edema: is not appreciated, JVD: is not appreciated. Vital Signs: 22:01 BP 159 / 114; Pulse 108; Resp 20; Temp 99.6; Pulse Ox 97% on R/A; Weight 88.9 kg (R); aj1 Pain 07/21; 23:45 BP 130 / 95; Pulse 104; Resp 21; Pulse Ox 95% on R/A; ea 08/01 01:30 BP 126 / 99; Pulse 94; Resp 18; Pulse Ox 97% ; ea 02:00 BP 132 / 96; Pulse 81; Resp 20; Pulse Ox 96% on R/A; ea 03:30 BP 142 / 78; Pulse 94; Resp 22; Temp 97; Pulse Ox 96% on R/A; lp1 07/31 22:01 Patient is restless while blood pressure is being taken, moving arm repeatedly aj1 MDM: 22:05 Patient medically screened. [facility] 22:37 Data reviewed: vital signs, nurses notes, lab test result(s), EKG, radiologic studies, [facility] CT scan, plain films. 07/31 22:34 Order name: Basic Metabolic Panel; Complete Time: 00:34 [facility] 07/31 22:34 Order name: CBC with Diff; Complete Time: 23:33 [facility] 07/31 22:34 Order name: LFT's; Complete Time: 00:34 [facility] 07/31 22:34 Order name: Magnesium; Complete Time: 00:34 [facility] 07/31 22:34 Order name: NT PRO-BNP; Complete Time: 00:34 [facility] 07/31 22:34 Order name: PT-INR; Complete Time: 23:33 [facility] 07/31 22:20 Order name: Chest Pa And Lat (2 Views) XRAY lp1 07/31 22:34 Order name: Troponin (emerg Dept Use Only); Complete Time: 00:34 [facility] 07/31 22:34 Order name: Lipase; Complete Time: 00:34 [facility] 07/31 22:34 Order name: Urine Culture [facility] 07/31 22:41 Order name: Procalcitonin; Complete Time: 00:34 [facility] 07/31 22:41 Order name: Lactate; Complete Time: 00:34 [facility] 08/01 00:45 Order name: Urine Dipstick--Ancillary (enter results) mw2 07/31 22:34 Order name: EKG; Complete Time: 22:35 [facility] 07/31 22:34 Order name: Cardiac monitoring; Complete Time: 23:25 [facility] 07/31 22:34 Order name: EKG - Nurse/Tech; Complete Time: 23:25 [facility] 07/31 22:34 Order name: IV Saline Lock; Complete Time: 23:25 [facility] 07/31 22:34 Order name: Labs collected and sent; Complete Time: 23:25 [facility] 07/31 22:34 Order name: O2 Per Protocol; Complete Time: 23:24 [facility] 07/31 22:34 Order name: CT Aorta for Dissection: ro pe, dissection [facility] 07/31 22:34 Order name: O2 Sat Monitoring; Complete Time: 23:24 [facility] 07/31 22:34 Order name: Urine Dipstick-Ancillary (obtain specimen); Complete Time: 00:44 [facility] Administered Medications: 23:20 Drug: Zofran 4 mg Route: IVP; Site: right antecubital; ea 08/01 00:41 Follow up: Response: No adverse reaction 07/31 23:23 Not Given (Patient Refused): morphine 4 mg IVP once; RASS on ADMIN: Combtv4, Very ea Agttd3, Agttd2, Rstlss1, AlertClm0, Drwsy-1, Lt Sdtn-2, Mod Sdtn-3, Dp Sdtn-4, UnArsble-5 23:23 Drug: Rocephin 2 grams Route: IV; Rate: per protocol; Site: right antecubital; ea 08/01 00:00 Follow up: Response: No adverse reaction; IV Status: Completed infusion; IV Intake: 20mlea 07/31 23:23 Drug: NS 0.9% 1000 ml Route: IV; Rate: 1 bolus; Site: left antecubital; ea 08/01 00:53 Follow up: IV Status: Completed infusion; IV Intake: 1000ml lp1 07/31 23:24 Drug: Zithromax 500 mg Route: IVPB; Infused Over: 1 hrs; Site: right antecubital; ea 08/01 00:53 Follow up: IV Status: Completed infusion; IV Intake: 250ml lp1 07/31 23:30 Drug: TORadol 30 mg Route: IVP; Site: right antecubital; ea 08/01 00:00 Follow up: Response: No adverse reaction; Pain is decreased ea 07/31 23:37 Drug: Tylenol 650 mg Route: PO; ea 08/01 00:00 Follow up: Response: No adverse reaction ea 00:00 Drug: NS 0.9% 1000 ml Route: IV; Rate: 1 bolus; Site: right antecubital; ea 04:06 Follow up: IV Status: Completed infusion; IV Intake: 1000ml [facility] 00:53 Drug: levofloxacin 750 mg Volume: 150 ml; Route: IVPB; Infused Over: 90 mins; Site: lp1 right antecubital; 02:29 Follow up: Response: No adverse reaction; IV Status: Completed infusion ea Disposition: 08/01/19 01:23 Transfer ordered to [facility]. Diagnosis are Dyspnea, Pleural effusion in conditions classified elsewhere - right, large, Atelectasis, Hydronephrosis with renal and ureteral calculous obstruction - severe, 6mm right mid ureter. - Reason for transfer: Higher level of care. - Accepting physician is to [facility]. - Condition is Stable. - Problem is new. - Symptoms have improved. Signatures: Dispatcher [employer] EDCA Valeria Demarco RN RN aj1 Raciel Sung MD MD cha Pena, Laura, RN RN lp1 Monica Scruggs RN RN ea Corrections: (The following items were deleted from the chart) 07/31 22:40 22:35 Chest Single View+RAD.RAD.BRZ ordered. [facility] 08/01 00:45 07/31 22:34 Urine Test ordered. [facility] mw2 08/01 01:20 07/31 23:39 Hospitalization Ordered by Rc Wan for Inpatient Admission. jeaneth Preliminary diagnosis is Pleural effusion, not elsewhere classified - hx of cervical cancer; Dyspnea; Fever, unspecified. Bed requested for Telemetry/MedSurg (Inpatient). Status is Inpatient Admission. Condition is Fair. Problem is new. Symptoms have improved. UTI on Admission? No. jeaneth 08/01 04:05 01:23 08/01/2019 01:23 Transfer ordered to [facility]. Diagnosis is lp1 Dyspnea; Pleural effusion in conditions classified elsewhere - right, large; Atelectasis; Hydronephrosis with renal and ureteral calculous obstruction - severe, 6mm right mid ureter. Reason for transfer: Higher level of care. Accepting physician is to [facility]. Condition is Stable. Problem is new. Symptoms have improved. jeaenth
--- NOTE | 2019-08-01 01:03 | P.HP ---
Certification for Inpatient Patient admitted to: Inpatient With expected LOS: >2 Midnights Patient will require the following post-hospital care: None Practitioner: I am a practitioner with admitting privileges, knowledge of patient current condition, hospital course, and medical plan of care. Services: Services provided to patient in accordance with Admission requirements found in Title 42 Section 412.3 of the Code of Federal Regulations Patient History Date of Service: 08/01/19 Reason for admission: Shortness of breath and pleuritic chest History of Present Illness: 49-year-old woman with a history of cervical cancer status post chemotherapy, and per patient, declared no evidence of disease, presented to the emergency department with a complaint shortness of breath, cough and right pleuritic chest pain which has been present for about 3 weeks. She was in the emergency department 3 weeks ago for similar complaint. The patient was diagnosed with acute bronchitis, given nebulizer treatments and discharged home. She stated her symptoms progressively got worse, and developed shortness of breath at rest. Cough was initially productive of yellow sputum but now nonproductive. She denied any fever but endorsed chills. In the ED, patient noted to be tachypneic. Chest x-ray demonstrated large right pleural effusion. CTA thorax is performed and result is pending. No leukocytosis and does not meet criteria for sepsis. Patient is admitted for further management. Allergies No Known Allergies Allergy (Unverified 02/25/18 18:34) Home medications list reviewed: Yes (No home medication) - Past Medical/Surgical History -: History of cervical cancer. -: Biopsy of Cervix - Family History Mother -: Diabetes - Social History Smoking Status: Former smoker (Quit smoking 3 months ago.) Alcohol use: No Place of Residence: Home Review of Systems Other: General: No fever, no malaise, no unintentional weight loss. Eyes: No eye discharge, CVS: No lightheadedness. GI: No abdominal pain, no nausea no vomit, no constipation, no diarrhea. Genitourinary: No dysuria, no urinary frequency, no incontinence, no hematuria. Musculoskeletal: No joint pains, or joint swelling, no gait instability. Neurology: No headache, no asymmetric, weakness, no problem with swallowing. Except as documented, all other systems reviewed and negative. Physical Examination - Physical Exam General: Alert, Oriented x3, Moderate distress HEENT: Atraumatic, Normocephalic, PERRLA, Mucous membr. moist/pink Neck: Supple, JVD not distended, No Thyromegaly Respiratory: Diminished (Markedly diminished breath sounds on the right.), Other (No rales or crackles or wheezes.) Cardiovascular: No edema, Normal S1 S2, No murmurs, Other (Tachycardic) Capillary refill: <2 Seconds Gastrointestinal: Normal bowel sounds, Soft and benign, Non-distended, No tenderness Musculoskeletal: No swelling, No erythema Integumentary: No rashes, No erythema Neurological: Normal speech, Normal strength at 5/5 x4 extr, Cranial nerves 3- 12 intact - Studies Laboratory Data (last 24 hrs) 07/31/19 23:02: PT 14.9 H, INR 1.27 07/31/19 23:02: WBC 7.7, Hgb 12.7, Hct 38.4, Plt Count 456 H 07/31/19 23:02: Sodium 143, Potassium 3.5, BUN 15, Creatinine 0.86, Glucose 103 , Magnesium 1.8, Total Bilirubin 0.4, AST 20, ALT 27, Alkaline Phosphatase 90, Lipase 85 Assessment and Plan - Problems (Diagnosis) (1) Pleural effusion, right Status: Acute (2) Pleurisy Status: Acute (3) History of cervical cancer Status: Acute - Plan Admit to [facility] Start IV Rocephin and Zithromax for possible pneumonia Follow CTA thorax result. U.S. guided thoracentesis Pleural fluid studies and culture Bronchodilators Oxygen p.r.n. - Advance Directives Does patient have a Living Will: No Does patient have a Durable POA for Healthcare: No
[2019-08-01 01:18] LABS: Urine Blood TRACE (NEG); Urine Glucose NEGATIVE (NEG); Urine Protein NEGATIVE (NEG); Urine Specific Gravity 1.025 (1.005-1.030); Urine pH 6.5 (5.0-7.0)
[2019-08-01 04:16] VITALS: O2SAT 96
[2019-08-01 04:17] VITALS: BP 142/78; TEMP 97
--- NOTE | 2019-08-01 07:28 | RAD REPORT ---
EXAM DESCRIPTION: Martín Man And Susan (2 Views)07/31/2019 10:42 pm CLINICAL HISTORY: Cough COMPARISON: June 2019 FINDINGS: A large loculated or viscous right pleural effusion with right basilar atelectasis. Left lung appears clear. The heart is normal size. Central venous line remains in place IMPRESSION: Large loculated or viscous right pleural effusion
--- NOTE | 2019-08-01 07:50 | EKG ---
Test Date: 2019-07-31 Test Time: 22:55:00 [employer] Instructor: JESSICA MEASUREMENT RESULTS: Intervals: Rate: 107 CT: 140 QRSD: 76 QT: 310 QTc: 413 [place]: P: 40 CT: 140 QRS: 60 T: -4 INTERPRETIVE STATEMENTS: Sinus tachycardia Nonspecific ST and T wave abnormality Abnormal ECG Compared to ECG 12/18/2013 04:46:03 ST (T wave) deviation now present T-wave abnormality no longer present Electronically Signed On 08-01-19 07:50:03 CDT by Matt Tian
--- NOTE | 2019-08-01 10:16 | RAD REPORT ---
EXAM DESCRIPTION: CT - Angio Aorta For Dissection - 08/01/2019 5:35 am CLINICAL HISTORY: The patient is 49 years old and is Female; Fever;Pain TECHNIQUE: Axial computed tomographic angiography images of the chest and axial computed tomography images of the abdomen, pelvis, thoracic spine and lumbar spine with intravenous contrast. This CT e xam was performed using one or more of the following dose reduction techniques: automated exposure control, adjustment of the mA and/or kV according to patient size, and/or use of iterative reconstruc tion technique. COMPARISON: CTA chest dated July 07, 2019. FINDINGS: CHEST: AORTA: No acute findings. No aortic aneurysm. No dissection. PULMONARY ARTERIES: Unremarkable as visualized. No pulmonary embolism is identified. GREAT VESSELS OF AORTIC ARCH: No acute findings. No dissection. No arterial occlusion or signi ficant stenosis. LUNGS: Left lung zones are clear. PLEURAL SPACE: Marked worsening of right pleural effusion and compressive atelectasis. No pneumothorax. HEART: Small amount of pericardial fluid. THYROID: Visualized thyroid is within normal limits. ABDOMEN: LIVER: Unremarkable. No mass. GALLBLADDER AND BILE DUCTS: Unremarkable. No calcified stones. No ductal dilation. PANCREAS: Unremarkable. No ductal dilation. No mass. SPLEEN: Unremarkable. No splenomegaly. ADRENALS: Unremarkable. No mass. KIDNEYS AND URETERS: 6 mm obstructive right mid ureteral stone with severe hydronephrosis and hydr oureter. Punctate nonobstructive stone in the inferior pole of the left kidney. No solid mass. STOMACH AND BOWEL: Unremarkable. No obstruction. No mucosal thickening. PELVIS: APPENDIX: The appendix is seen and is within normal limits. BLADDER: Bladder is decompressed. REPRODUCTIVE: Unremarkable as visualized. THORACIC and LUMBAR SPINE: VERTEBRAE: Trace levoscoliosis. No acute fracture. DISCS/SPINAL CANAL/NEURAL FORAMINA: No acute findings. No spinal canal stenosis. CHEST, ABDOMEN and PELVIS: INTRAPERITONEAL SPACE: Unremarkable. No significant fluid collection. No free air. BONES/JOINTS: See above. Sclerotic focus in the L4 vertebral body. SOFT TISSUES: Unremarkable. LYMPH NODES: Unremarkable. No enlarged lymph nodes. IMPRESSION: 1. No aortic dissection or aneurysm. 2. Obstructive 6 mm right mid ureteral stone with severe hydronephrosis and hydroureter. 3. Large right pleural effusion and compressive atelectasis, worsened from prior exam. 4. Additional punctate nonobstructive left renal stone. Electronically signed by: Chance Ann DO 08/01/2019 1:03 AM CDT Due to temporary technical issues with the PACS/Fluency reporting system, reports are being signed by the in house radiologist as a courtesy to ensure prompt reporting. The interpreting radiologist is f ully responsible for the content of the report.
== END 2019-08-01 04:05 | disposition short-term general hospital (02) ==
LOC: ER 21:42 → ERHOLD 08-01 01:44 → UNDOADMIN 08-01 01:44
DX: J98.11 Atelectasis (principal); J91.8 Pleural effusion in other conditions classified elsewhere; N13.2 Hydronephrosis with renal and ureteral calculous obstruction; Z85.41 Personal history of malignant neoplasm of cervix uteri
CPT/HCPCS: 36415; 71046; 71275; 74175; 80048; 80076; 81003; 83605; 83690; 83735; 83880; 84145; 84484; 85025; 85610; 87086; 87088; 93005; 96361; 96365; 96367; 96368; 96375; 99285; J0456; J0696; J2405; J7030; Q9967

== ENCOUNTER 2023-03-23 19:08 | Emergency (ER) | payer SELFPAY ==
--- OUTSIDE RECORDS SUMMARY | 2023-03-23 19:11 | XMS REPORT | Continuity of Care Document ---
:1970 Author Organization [facility] t Address [address] [facility] [address] [place] [address] Care Team Providers Name Role Phone DOTTIE LUCIANO Attending Clinician Unavailable KEANU MAHMOOD Admitting Clinician Unavailable Problems Condition Condition Condition Status Onset Resolution Last Treating Co mments Source Name Details Category Date Date Treatment Clinician Date Cervical Cervical Disease Recurre 2018-[address] [facility] 00 [place] Pleural Pleural Disease Active 2018-[address] [facility] effusion effusion 0[facility] 00 [place] Kidney Kidney Disease Active 2018-[address] [facility] stones stones 0-[facility] 00 [place] Hydronephr Hydronephr Disease Active 2018- [facility]sis with [facility] urinary urinary [facility]: Medical obstructio obstructio 00 Ce nter n due to n due to ureteral ureteral calculus calculus Shortness Shortness Disease Active 2018-[address] [facility] [address] [facility] breath of breath 0-21 [facility] 00 Center Allergies, Adverse Reactions, Alerts This patient has no known allergies or adverse reactions. Family History Family Member Diagnosis Comments Start Date Stop Date Source Natural father Hypertension [facility] Natural father Diabetes [facility] Natural mother Diabetes [facility] Natural mother Hypertension [facility] Social History Social Habit Start Date Stop Date Quantity Comments Source History SDOH [facility] Alcohol Std Drinks [facility] History SDOH [facility] Alcohol Binge Medical [facility] Alcohol intake 2019-08-04 2019-08-[address] [facility] 00:[facility]00 00:00:00 non-drinker of Medical Ce nter alcohol (finding) Tobacco use and 2019-08-01 2019-08-01 [address] [facility] exposure [facility]:00 non-user Medical Center History SDOH 2019-08-01 2019-08-[address] [facility] Alcohol Frequency 00:00:00 00:00:00 Medical Center Sex Assigned At [birth year] [facility] 00:00:00 00:00:00 Medical Center Smoking Status Start Date Stop Date Source Never smoked tobacco [facility] Medications Ordered Filled Start Stop Current Ordering Indication Dosage Frequency Signature Comments Components Source Medication Medication Date Date Medication? Clinician (SIG) Name Name albuterol Yes 2{puff} Inhale [address] HFA 9-30 puffs by [facility] (VENTOLIN 00:00: mouth via Med ical HFA) 90 00 inhaler Center mcg/actuati every 6 on inhaler (six) hours as needed for Wheezing. Procedures This patient has no known procedures. Results Test Description Test Time Test Comments Results Result Comments Source AFB CULTURE + SMEAR 2019-09-19 14:58:00 Test Item Value Reference Range Interpretation Comme nts CULTURE (BEAKER) (test code = 1095) No acid-fast bacilli isolated i n 42 days AFB SMEAR (BEAKER) (test code = 994) No acid fast bacilli seen FUNGUS CULTURE + [id number] 16:10:00 Test Item Value Reference Range Interpretation Comments CULTURE (BEAKER) (test No fungus isolated in code = 1095) 28 days FUNGUS SMEAR (BEAKER) No fungi seen (test code = 1406) BODY FLUID CULTURE + GRAM [id number] 11:25:00 Test Item Value Reference Range Interpretation Comments CULTURE (BEAKER) (test No growth code = 1095) GRAM STAIN RESULT 2+ White blood cells (BEAKER) (test code = seen 1123) GRAM STAIN RESULT No organisms seen (BEAKER) (test code = 04917) RAD, CHEST, 1 VIEW, NON [id number] 16:01:00Reason for exam:->f/u thoracostomy tube and PLEFFShould this be performed at the bedside?->YesFINAL REPORT CLINICAL HISTORY: f/u thoracostomy tube and PLEFF TECHNIQUE: 1 view of the chest. COMPARISON: 08/03/2019 IMPRESSION: The supporting lines and tubes are similar appearing. Right lower lung airspace opacity and a small right pleural effusion are unchanged. Left lung base atelectasis is unchanged. There is no pneumothorax. The cardiomediastinal silhouette is magnified by technique. Signed: Ninfa Han MDReport Verified Date/Time: 08/04/2019 16:01:43 Reading Location:[facility] Radiology Reading Room [id number] 14:52:00Medical Cytology Report Case: [id number] Authorizing Provider: Ash Holden MD Collected: 08/03/2019 1352 Ordering Location: [address] Received: 08/03/2019 1420 Service Pathologist: Jason Finn MD Specimen: Urine, Bladder Wash, Bladder washings, history of radiation URINE, BLADDER WASHING (CYTOSPINS): - NEGATIVE FOR MALIGNANCY Signing Pathologist Direct Phone Line: [phone] signed by Jason Finn MD on 08/04/2019 at 2:52 [id number] post cystoscopy, history of cervical cancer treated with chemoxrt in 2012 without any follow up now with 3 weeks of increasing SOB and right rib pain, and obstructing R mid-uretreal stone with severe R hydro.URINE, BLADDER CLIZZNR90 mls colorless; 4 cytospinsCollected: [id number]: [id number] [facility], Department of Pathology, [address] [place] [address], [facility]Lucile [facility], [facility] of [facility], [address] [place] [address], QofkgyLucile [facility]ter [facility], [facility] of [facility], [address] [place] [address], [id number] 13:20:00Medical Cytology Report Case: [id number] Authorizing Provider: Alessio Jha MD Collected: 08/02/2019 0853 Ordering Location: [address] Received: 08/02/2019 0927 Service Pathologist: Pepper Baker MD Specimen: Pleural, Right Addendum to report on material received subsequent toinitial examination.Comment: Segment to initial examination of the material obtained from the right pleural effusion, including material for cell block.The subsequent material shows features identical to that noted in the original slides examined. Thus, no changes are made to the original report..CPT code for cell block 50958.Addendum electronically signed by Pepper Baker MD on 08/04/2019 at 1:20 PMRIGHT PLEURAL FLUID (CYTOSPINS): - NEGATIVE FOR EPITHELIAL MALIGNANCY - PREDOMINANTLY SMALL LYMPHOCYTES Signing Pathologist Direct Phone Line: [phone] signed by Vance Baker MD on 08/02/2019 at 1:32 PMSuggest submission of pleural fluid for flow cytometric evaluation, if clinically indicated.[id number] pleural effusion, history of cervical cancer treated with chemoxrtin 2012 without any follow up now with 3 weeks of increasing SOB and right rib pain, and obstructingR mid- uretreal stone with severe R hydro.RIGHT PLEURAL FLUID10 mls yellow gelatinous; 4 cytospinsCollected: [id number]: [id number] [facility], Department of Pathology, [address] [place] [address], XmbkalLucile [facility], [facility] of [facility], [address] [place], [place] [id number], DaosqvLucile [facility]ter [facility], Department of [facility]ology, [address] [place] [address], CMAIB METABOLIC [id number] 12:28:00 Test Item Value Reference Range Interpretation Comments SODIUM (BEAKER) (test 139 meq/L 136-145 code = 381) POTASSIUM (BEAKER) 3.6 meq/L 3.5-5.1 (test code = 379) CHLORIDE (BEAKER) 108 meq/L 98-107 H (test code = 382) CO2 (BEAKER) (test 23 meq/L 22-29 code = 355) BLOOD UREA NITROGEN 18 mg/dL 7-21 (BEAKER) (test code = 354) CREATININE (BEAKER) 0.89 mg/dL 0.57-1.25 (test code = 358) GLUCOSE RANDOM 156 mg/dL 70-105 H (BEAKER) (test code = 652) CALCIUM (BEAKER) 9.4 mg/dL 8.4-10.2 (test code = 697) EGFR (BEAKER) (test INSUFFIC IENT CLINICAL code = 1092) DATA TO CALCULA TE ESTIMATED GFR. CBC W/PLT COUNT & AUTO [id number] 11:30:00 Test Item Value Reference Range Interpretation Comments WHITE BLOOD CELL COUNT (BEAKER) 8.3 K/ L 3.5-10.5 (test code = 775) RED BLOOD CELL COUNT (BEAKER) 4.95 M/ L 3.93-5.22 (test code = 761) HEMOGLOBIN (BEAKER) (test code = 13.7 GM/DL 11.2-15.7 410) HEMATOCRIT (BEAKER) (test code = 41.7 % 34.1-44.9 411) MEAN CORPUSCULAR VOLUME (BEAKER) 84.2 fL 79.4-94.8 (test code = 753) MEAN CORPUSCULAR HEMOGLOBIN 27.7 pg 25.6-32.2 (BEAKER) (test code = 751) MEAN CORPUSCULAR HEMOGLOBIN CONC 32.9 GM/DL 32.2-35.5 (BEAKER) (test code = 752) RED CELL DISTRIBUTION WIDTH 13.0 % 11.7-14.4 (BEAKER) (test code = 412) PLATELET COUNT (BEAKER) (test 445 K/CU MM 150-450 code = 756) MEAN PLATELET VOLUME (BEAKER) 9.3 fL 9.4-12.3 L (test code = 754) NUCLEATED RED BLOOD CELLS 0 /100 WBC 0-0 (BEAKER) (test code = 413) NEUTROPHILS RELATIVE PERCENT 80 % (BEAKER) (test code = 429) LYMPHOCYTES RELATIVE PERCENT 13 % (BEAKER) (test code = 430) MONOCYTES RELATIVE PERCENT 5 % (BEAKER) (test code = 431) EOSINOPHILS RELATIVE PERCENT 2 % (BEAKER) (test code = 432) BASOPHILS RELATIVE PERCENT 0 % (BEAKER) (test code = 437) NEUTROPHILS ABSOLUTE COUNT 6.61 K/ L 1.56-6.13 H (BEAKER) (test code = 670) LYMPHOCYTES ABSOLUTE COUNT 1.04 K/ L 1.18-3.74 L (BEAKER) (test code = 414) MONOCYTES ABSOLUTE COUNT (BEAKER) 0.42 K/ L 0.24-0.36 H (test code = 415) EOSINOPHILS ABSOLUTE COUNT 0.16 K/ L 0.04-0.36 (BEAKER) (test code = 416) BASOPHILS ABSOLUTE COUNT (BEAKER) 0.02 K/ L 0.01-0.08 (test code = 417) IMMATURE GRANULOCYTES-RELATIVE 0 % 0-1 PERCENT (BEAKER) (test code = 2801) RHEUMATOID FACTOR AB, REFLEX TO [id number] 11:28:00 Test Item Value Reference Range Interpretation Comments RHEUMATOID FACTOR (BEAKER) (test Negative code = 573) FLOW CYTOMETRY [id number] 11:03:00 Test Item Value Reference Range Interpretation Comments FLOW CYTOMETRY RESULT See Separate Report POINTER (BEAKER) (test code = 2758) FLOW CYTOMETRY AP CASE # [id number] (BEAKER) (test code = 2759) ANTI-NUCLEAR ANTIBODY (DMITRI)2019-08-04 09:40:00 Test Item Value Reference Range Interpretation Comments ANTI-NUCLEAR ANTIBODY (DMITRI) (BEAKER) Negative Negative (test code = 418) Test performed by IFA method.DOUBLE-STRANDED DNA (DSDNA) [id number] 09:34:00 Test Item Value Reference Range Interpretation Comments ANTI-DNA DS (BEAKER) (test code = Negative 1055) CT, CHEST, WITHOUT [id number] 02:54:00Anesthesia:->NoneFINAL REPORT CLINICAL INDICATION: Recent drainage of right pleural effusion, please evaluate underlying lung parenchyma COMPARISON: None Multiple axial images of the chest were performed without IV contrast. This exam was performed according to our departmental dose-optimization program, which includes automated exposure control, adjustment of the mA and/or kV according to patient size and/or use of the iterative reconstruction technique. FINDINGS: Lung parenchyma: There is a moderate amount of dependent/compressive atelectasis in the right lower lung and a small amount of dependent atelectasis in the left lung base. There is no nodule, mass or interstitial abnormality in the aerated portions of either lung. Pleural effusion: Moderate right pleural effusion, primarily in the dependent right pleural space Pneumothorax: Trace pleural gas possibly related to a chest tube. Tracheobronchial tree: No significant findings. Pulmonary vasculature: No significant findings. Cardiac contours and great vessels: No significant findings. Mediastinum: No significant findings. Lymph Nodes:No adenopathy in the mediastinum or hilario. Skeleton: No acute abnormality. Limited images of upper abdomen: No significant findings. IMPRESSION: Moderate right pneumothorax. There is a small amount of associated right pleural gas which may relate to a right chest tube. An empyema should be excluded clinically. There is a moderate amount of atelectasis in the right lower lung and a small amount of atelectasis in the dependent left lower lobe. Superimposed pneumonitis should be excluded clinically. An underlying pulmonary lesion is difficult to exclude but none is identified. Continued follow-up can be obtained, as indicated. Signed: Kristofer Masters Verified Date/Time: 08/04/2019 02:54:06 CYTOLOGY [id number] 16:00:00 Test Item Value Reference Range Interpretation Comments CYTOLOGY RESULT POINTER See Separate Report (BEAKER) (test code = 2629) [place], VISUAL BASIC PROGRAMMER IN OR/30 MINUTE [id number] 15:33:00Reason for exam:- >surgical procedureFINAL REPORT A fluoroscopic unit was utilized for a procedure performed in the operating room. No interpretation was requested. Please refer to the operative report regarding findings. Please refer to PACS for patient radiation dose information. Signed: Ninfa Han Verified Date/Time: 08/03/2019 15:33:09 Reading Location: [facility] Radiology Reading Room FLOW [id number] 13:55:00Flow Cytometry Report Case: [id number] Authorizing Provider: Alessio Jha MD Collected: 08/03/2019 1006 Ordering Location: [address] Received: 08/03/2019 1038 Service Pathologist: Ernesto Go MD Specimen: Other PLEURAL FLUID, RIGHT, FLOW CYTOMETRY:-NO MONOCLONAL B CELL POPULATION-NO ABNORMAL T CELL POPULATION- CORRELATION WITH MORPHOLOGIC FINDINGS REQUIRED [id number] effusionPleural fluid, rightCD8, surface-kappa, CD56, surface-lambda, CD5, CD19, CD10, CD3, CD20, CD4, [id number] Viability: 94.6% Number of Events Acquired: [id number] The following populations are identified: Lymphocytes: Bright CD45+ lymphocytes comprise 97.9% of total cells. T cells show a CD4:CD8 ratio of 3.7 and normal expression of the centeno T cell antigens CD3 and CD5. B cells are polytypic with a kappa:lambda ratio of 1.9. Myeloid/monocytic populations: As identified by CD45 and light scatter characteristics, granulocytes comprise 0.5% of total cells, and monocytes comprise 0.6% of total cells. The remaining events analyzed represent nonviable cells, non-hematolymphoid cells, and debris.These tests were developed and their performance characteristics determined by [facility]. They have not been cleared or approved by the U.S. Food and Drug Administration. The FDA has determined that such clearanceor approval is not necessary. It should not be regarded as investigational or for research. This laboratory is certified under the Clinical Laboratory Improvement Amendments of 1988 ("CLIA") as qualified to perform high-complexity clinical testing.RAD, CHEST, 1 VIEW, NON [id number] 10:16:00Reason for exam:->f/u thoracostomy tube and PLEFFShould this be performed at the bedside?->YesFINAL REPORT CLINICAL HISTORY: f/u thoracostomy tube and PLEFF TECHNIQUE: 1 view of the chest. COMPARISON: 08/02/2019 IMPRESSION: The supporting lines and tubes are similar appearing. There is no pneumothorax. Right lower hemithorax pleural- parenchymal opacity is unchanged. The cardiomediastinal silhouette is magnified by technique. Signed: Ninfa Han MDReport Verified Date/Time: 08/03/2019 10:16:30 Reading Location: [facility] Radiology Reading Room BASIC METABOLIC PANEL 2019-08-03 06:08:00 Test Item Value Reference Range Interpretation Comments SODIUM (BEAKER) (test 140 meq/L 136-145 code = 381) POTASSIUM (BEAKER) 3.5 meq/L 3.5-5.1 (test code = 379) CHLORIDE (BEAKER) 109 meq/L 98-107 H (test code = 382) CO2 (BEAKER) (test 25 meq/L 22-29 code = 355) BLOOD UREA NITROGEN 18 mg/dL 7-21 (BEAKER) (test code = 354) CREATININE (BEAKER) 0.78 mg/dL 0.57-1.25 (test code = 358) GLUCOSE RANDOM 111 mg/dL 70-105 H (BEAKER) (test code = 652) CALCIUM (BEAKER) 8.9 mg/dL 8.4-10.2 (test code = 697) EGFR (BEAKER) (test INSUFFIC IENT CLINICAL code = 1092) DATA TO CALCULA TE ESTIMATED GFR. [id number] 05:47:00 Test Item Value Reference Range Interpretation Comments MAGNESIUM (BEAKER) (test code = 1.8 mg/dL 1.6-2.6 627) CBC W/PLT COUNT & AUTO [id number] 05:17:00 Test Item Value Reference Range Interpretation Comments WHITE BLOOD CELL COUNT (BEAKER) 6.0 K/ L 3.5-10.5 (test code = 775) RED BLOOD CELL COUNT (BEAKER) 4.63 M/ L 3.93-5.22 (test code = 761) HEMOGLOBIN (BEAKER) (test code = 12.6 GM/DL 11.2-15.7 410) HEMATOCRIT (BEAKER) (test code = 40.1 % 34.1-44.9 411) MEAN CORPUSCULAR VOLUME (BEAKER) 86.6 fL 79.4-94.8 (test code = 753) MEAN CORPUSCULAR HEMOGLOBIN 27.2 pg 25.6-32.2 (BEAKER) (test code = 751) MEAN CORPUSCULAR HEMOGLOBIN CONC 31.4 GM/DL 32.2-35.5 L (BEAKER) (test code = 752) RED CELL DISTRIBUTION WIDTH 13.1 % 11.7-14.4 (BEAKER) (test code = 412) PLATELET COUNT (BEAKER) (test 371 K/CU MM 150-450 code = 756) MEAN PLATELET VOLUME (BEAKER) 9.6 fL 9.4-12.3 (test code = 754) NUCLEATED RED BLOOD CELLS 0 /100 WBC 0-0 (BEAKER) (test code = 413) NEUTROPHILS RELATIVE PERCENT 72 % (BEAKER) (test code = 429) LYMPHOCYTES RELATIVE PERCENT 15 % (BEAKER) (test code = 430) MONOCYTES RELATIVE PERCENT 9 % (BEAKER) (test code = 431) EOSINOPHILS RELATIVE PERCENT 4 % (BEAKER) (test code = 432) BASOPHILS RELATIVE PERCENT 1 % (BEAKER) (test code = 437) NEUTROPHILS ABSOLUTE COUNT 4.32 K/ L 1.56-6.13 (BEAKER) (test code = 670) LYMPHOCYTES ABSOLUTE COUNT 0.88 K/ L 1.18-3.74 L (BEAKER) (test code = 414) MONOCYTES ABSOLUTE COUNT (BEAKER) 0.52 K/ L 0.24-0.36 H (test code = 415) EOSINOPHILS ABSOLUTE COUNT 0.25 K/ L 0.04-0.36 (BEAKER) (test code = 416) BASOPHILS ABSOLUTE COUNT (BEAKER) 0.03 K/ L 0.01-0.08 (test code = 417) IMMATURE GRANULOCYTES-RELATIVE 1 % 0-1 PERCENT (BEAKER) (test code = 2801) RAD, CHEST, 1 VIEW, NON [id number] 08:21:00Reason for exam:->f/u thoracostomy tube and PLEFFShould this be performed at the bedside?->YesFINAL REPORT CLINICAL HISTORY: f/u thoracostomy tube and PLEFF TECHNIQUE: 1 view of the chest. COMPARISON: 08/01/2019 IMPRESSION: The right- sided lines and tubes are unchanged. Right hemithorax pleural-parenchymal opacities similar appearing. There is minimal left lung base atelectasis with blunting of the left costophrenic angle. The cardiomediastinal silhouette is magnified by technique. Signed: Ninfa Han MDReport Verified Date/Time: 08/02/2019 08:21:50 Reading Location: [facility] Radiology Reading Room BASIC METABOLIC [id number] 05:17:00 Test Item Value Reference Range Interpretation Comments SODIUM (BEAKER) (test 141 meq/L 136-145 code = 381) POTASSIUM (BEAKER) 3.7 meq/L 3.5-5.1 (test code = 379) CHLORIDE (BEAKER) 110 meq/L 98-107 H (test code = 382) CO2 (BEAKER) (test 23 meq/L 22-29 code = 355) BLOOD UREA NITROGEN 13 mg/dL 7-21 (BEAKER) (test code = 354) CREATININE (BEAKER) 0.74 mg/dL 0.57-1.25 (test code = 358) GLUCOSE RANDOM 106 mg/dL 70-105 H (BEAKER) (test code = 652) CALCIUM (BEAKER) 9.1 mg/dL 8.4-10.2 (test code = 697) EGFR (BEAKER) (test INSUFFIC IENT CLINICAL code = 1092) DATA TO CALCULA TE ESTIMATED GFR. [id number] 05:00:00 Test Item Value Reference Range Interpretation Comments MAGNESIUM (BEAKER) (test code = 1.9 mg/dL 1.6-2.6 627) LACTATE DEHYDROGENASE (LDH)2019-08-02 05:00:00 Test Item Value Reference Range Interpretation Comments LACTATE DEHYDROGENASE (BEAKER) (test 250 U/L 125-220 H code = 635) CBC W/PLT COUNT & AUTO [id number] 04:41:00 Test Item Value Reference Range Interpretation Comments WHITE BLOOD CELL COUNT (BEAKER) 4.4 K/ L 3.5-10.5 (test code = 775) RED BLOOD CELL COUNT (BEAKER) 4.44 M/ L 3.93-5.22 (test code = 761) HEMOGLOBIN (BEAKER) (test code = 12.1 GM/DL 11.2-15.7 410) HEMATOCRIT (BEAKER) (test code = 38.6 % 34.1-44.9 411) MEAN CORPUSCULAR VOLUME (BEAKER) 86.9 fL 79.4-94.8 (test code = 753) MEAN CORPUSCULAR HEMOGLOBIN 27.3 pg 25.6-32.2 (BEAKER) (test code = 751) MEAN CORPUSCULAR HEMOGLOBIN CONC 31.3 GM/DL 32.2-35.5 L (BEAKER) (test code = 752) RED CELL DISTRIBUTION WIDTH 13.2 % 11.7-14.4 (BEAKER) (test code = 412) PLATELET COUNT (BEAKER) (test 376 K/CU MM 150-450 code = 756) MEAN PLATELET VOLUME (BEAKER) 9.5 fL 9.4-12.3 (test code = 754) NUCLEATED RED BLOOD CELLS 0 /100 WBC 0-0 (BEAKER) (test code = 413) NEUTROPHILS RELATIVE PERCENT 69 % (BEAKER) (test code = 429) LYMPHOCYTES RELATIVE PERCENT 18 % (BEAKER) (test code = 430) MONOCYTES RELATIVE PERCENT 9 % (BEAKER) (test code = 431) EOSINOPHILS RELATIVE PERCENT 3 % (BEAKER) (test code = 432) BASOPHILS RELATIVE PERCENT 1 % (BEAKER) (test code = 437) NEUTROPHILS ABSOLUTE COUNT 3.01 K/ L 1.56-6.13 (BEAKER) (test code = 670) LYMPHOCYTES ABSOLUTE COUNT 0.79 K/ L 1.18-3.74 L (BEAKER) (test code = 414) MONOCYTES ABSOLUTE COUNT (BEAKER) 0.39 K/ L 0.24-0.36 H (test code = 415) EOSINOPHILS ABSOLUTE COUNT 0.15 K/ L 0.04-0.36 (BEAKER) (test code = 416) BASOPHILS ABSOLUTE COUNT (BEAKER) 0.03 K/ L 0.01-0.08 (test code = 417) IMMATURE GRANULOCYTES-RELATIVE 1 % 0-1 PERCENT (BEAKER) (test code = 2801) LACTATE DEHYDROGENASE (LDH), BODY [id number] 19:12:00 Test Item Value Reference Range Interpretation Comments LACTATE DEHYDROGENASE FLUID (BEAKER) 381 U/L (test code = 634) Absence of reference range indicates that normals have not been defined.Assay performance has not been validated for this type of specimen.PROTEIN, BODY FLUID 2019-08-01 19:12:00 Test Item Value Reference Range Interpretation Comments PROTEIN FLUID (BEAKER) (test code = 4.7 g/dL 579) Absence of reference range indicates that normals have not been defined.Assay performance has not been validated for this type of specimen.CREATININE, BODY [id number] 19:12:00 Test Item Value Reference Range Interpretation Comments CREATININE FLUID (BEAKER) (test 0.73 mg/dL code = 677) Reference Range: No Normals Assay performance has not been validated for this type of specimen.GLUCOSE, BODY [id number] 19:12:00 Test Item Value Reference Range Interpretation Comments GLUCOSE, BODY FLUID (BEAKER) (test 89 mg/dL code = 1528) Absence of reference range indicates that normals have not been defined.Assay performance has not been validated for this type of specimen.BODY FLUID CELL COUNT WITH [id number] 17:56:00 Test Item Value Reference Range Interpretation Comments APPEARANCE FLUID (BEAKER) (test Hazy Clear A code = 510) COLOR FLUID (BEAKER) (test code Yellow Colorless, Straw A = 511) RBC FLUID (BEAKER) (test code = 5355 /cu mm <=1 H 513) ADJUSTED WBC FLUID (BEAKER) 1680 /cu mm <=5 H (test code = 1691) LINING CELLS (BEAKER) (test code 0 /cu mm <=1 = 1590) NEUTROPHILS FLUID (BEAKER) (test 4 % code = 1656) LYMPHS FLUID (BEAKER) (test code 89 % = 488) MONO/MACROPHAGE FLUID (BEAKER) 7 % (test code = 489) EOSINOPHILS FLUID (BEAKER) (test 0 % code = 491) BASO FLUID (BEAKER) (test code = 0 % 492) CONTAINER BODY FLUID (BEAKER) EDTA Tube (test code = 2873) SCREEN, [id number] 16:47:00 Test Item Value Reference Range Interpretation Comments TEST URINE (BEAKER) (test Negative code = 583) RAD, CHEST, 1 VIEW, NON [id number] 15:37:00Reason for exam:->verify chest tube placement siteShould this be performed at the bedside?->YesFINAL REPORT INDICATION: verify chest tube placement site TECHNIQUE: Chest radiograph, single view, portable technique. FINDINGS / IMPRESSION: Comparison to August 01 at 9:18 AM.Interval placement of a right base pleural catheter with slight decrease in size of large right pleural effusion. Left lung is clear. Right chest port terminates in the low SVC. Signed: Kenneth Moreno Verified Date/Time: 08/01/2019 15:37:27 Reading Location: [facility] Mammo Reading Room URINALYSIS W/ REFLEX URINE [id number] 09:49:00 Test Item Value Reference Range Interpretation Comments COLOR (BEAKER) (test code = 470) Light Yellow CLARITY (BEAKER) (test code = Clear 469) SPECIFIC GRAVITY UA (BEAKER) 1.014 1.001-1.035 (test code = 468) PH UA (BEAKER) (test code = 467) 7.0 5.0-8.0 PROTEIN UA (BEAKER) (test code = Negative Negative 464) GLUCOSE UA (BEAKER) (test code = Negative Negative 365) KETONES UA (BEAKER) (test code = Negative Negative 371) BILIRUBIN UA (BEAKER) (test code Negative Negative = 462) BLOOD UA (BEAKER) (test code = Negative Negative 461) NITRITE UA (BEAKER) (test code = Negative Negative 465) LEUKOCYTE ESTERASE UA (BEAKER) Negative Negative (test code = 466) UROBILINOGEN UA (BEAKER) (test 0.2 mg/dL 0.2-1.0 code = 463) RBC UA (BEAKER) (test code = 1 /HPF 519) WBC UA (BEAKER) (test code = 1 /HPF 520) MUCUS (BEAKER) (test code = Rare 1574) SQUAMOUS EPITHELIAL (BEAKER) 1 /HPF (test code = 516) SOURCE(BEAKER) (test code = 2795) RAD, CHEST, 2 [id number] 09:40:00Reason for exam:->pleural effusionFINAL REPORT Chest, PA and lateral views History: Pleural effusion Comparison: No comparisons available for review IMPRESSION: The right heart border is obscured by a large right pleural effusion. Right IJ chest port is in place with distal catheter tip terminating in the mid SVC.The left lung is grossly clear. There is no pneumothorax. No acute osseous abnormalities are identified. Signed: Shay Sigala MDReport Verified Date/Time: 08/01/2019 09:40:29 Reading Location: [facility] Reading [facility] - [facility] [phone] Electronically signed by: SHAY SIGALA on08/01/2019 09:40 AM RAPID DRUG SCREEN, [id number] 08:40:00 Test Item Value Reference Range Interpretation Comments BARBITURATE URINE (BEAKER) (test Negative Negative code = 725) BENZODIAZEPINE SCREEN URINE (BEAKER) Negative Negative (test code = 726) COCAINE (METAB.) SCREEN (BEAKER) Negative Negative (test code = 1164) METHADONE SCREEN (BEAKER) (test code Negative Negative = 1436) OPIATE SCREEN URINE (BEAKER) (test Negative Negative code = 734) CANNABINOID SCREEN URINE (BEAKER) Negative Negative (test code = 727) AMPH/METHAMPH SCREEN (BEAKER) (test Negative Negative code = 1438) PHENCYCLIDINE SCREEN URINE (BEAKER) Negative Negative (test code = 608) DRUG CUTOFF CONC.Cocaine 300 ng/mL Cannabinoid 50 ng/mLBenzodiazepine 200 ng/mLBarbiturate 200 ng/mLPhencyclidine 25 ng/mLOpiate 300 ng/mLMethadone 300 ng/mLAmphetamine/ 1000 ng/mL MethamphetamineThis assay provides an unconfirmed qualitative test result for the clinical management of patients in emergency situations. Chain of custody not maintained. Some hwcn-wrt-zorrkvy medications, as well as adulterants, may cause inaccurate results. Clinical correlation should be applied. A more comprehensive drug screen or confirmation of a detected drug may be performed upon request.BASIC METABOLIC [id number] 07:09:00 Test Item Value Reference Range Interpretation Comments SODIUM (BEAKER) (test 142 meq/L 136-145 code = 381) POTASSIUM (BEAKER) 3.5 meq/L 3.5-5.1 (test code = 379) CHLORIDE (BEAKER) 111 meq/L 98-107 H (test code = 382) CO2 (BEAKER) (test 23 meq/L 22-29 code = 355) BLOOD UREA NITROGEN 9 mg/dL 7-21 (BEAKER) (test code = 354) CREATININE (BEAKER) 0.73 mg/dL 0.57-1.25 (test code = 358) GLUCOSE RANDOM 102 mg/dL 70-105 (BEAKER) (test code = 652) CALCIUM (BEAKER) 8.7 mg/dL 8.4-10.2 (test code = 697) EGFR (BEAKER) (test INSUFFIC IENT CLINICAL code = 1092) DATA TO CALCULA TE ESTIMATED GFR. [id number] 07:06:00 Test Item Value Reference Range Interpretation Comments MAGNESIUM (BEAKER) (test code = 1.7 mg/dL 1.6-2.6 627) HEPATIC FUNCTION [id number] 07:06:00 Test Item Value Reference Range Interpretation Comments TOTAL PROTEIN (BEAKER) (test code = 6.7 gm/dL 6.0-8.3 770) ALBUMIN (BEAKER) (test code = 1145) 3.3 g/dL 3.5-5.0 L BILIRUBIN TOTAL (BEAKER) (test code 0.3 mg/dL 0.2-1.2 = 377) BILIRUBIN DIRECT (BEAKER) (test 0.2 mg/dL 0.1-0.5 code = 706) ALKALINE PHOSPHATASE (BEAKER) (test 79 U/L 40-150 code = 346) AST (SGOT) (BEAKER) (test code = 15 U/L 5-34 353) ALT (SGPT) (BEAKER) (test code = 16 U/L 6-55 347) PROTHROMBIN [id number] 06:55:00 Test Item Value Reference Range Interpretation Comments PROTIME (BEAKER) (test code = 16.4 seconds 11.9-14.2 H 759) INR (BEAKER) (test code = 370) 1.4 <=5.9 Effective 03/09/2019: PT Reference Range ChangeNew: 11.9-14.2 Previous: 11.7- 14.7RECOMMENDED COUMADIN/WARFARIN INR THERAPY RANGESSTANDARD DOSE: 2.0-3.0 Includes: PROPHYLAXIS for venous thrombosis, systemic embolization; TREATMENT for venous thrombosis and/or pulmonary embolus.HIGH RISK: Target INR is 2.5-3.5 for patients wiht mechanical heart valves.CBC W/PLT COUNT & AUTO [id number] 06:49:00 Test Item Value Reference Range Interpretation Comments WHITE BLOOD CELL COUNT (BEAKER) 5.9 K/ L 3.5-10.5 (test code = 775) RED BLOOD CELL COUNT (BEAKER) 4.18 M/ L 3.93-5.22 (test code = 761) HEMOGLOBIN (BEAKER) (test code = 11.5 GM/DL 11.2-15.7 410) HEMATOCRIT (BEAKER) (test code = 35.8 % 34.1-44.9 411) MEAN CORPUSCULAR VOLUME (BEAKER) 85.6 fL 79.4-94.8 (test code = 753) MEAN CORPUSCULAR HEMOGLOBIN 27.5 pg 25.6-32.2 (BEAKER) (test code = 751) MEAN CORPUSCULAR HEMOGLOBIN CONC 32.1 GM/DL 32.2-35.5 L (BEAKER) (test code = 752) RED CELL DISTRIBUTION WIDTH 13.2 % 11.7-14.4 (BEAKER) (test code = 412) PLATELET COUNT (BEAKER) (test 396 K/CU MM 150-450 code = 756) MEAN PLATELET VOLUME (BEAKER) 9.1 fL 9.4-12.3 L (test code = 754) NUCLEATED RED BLOOD CELLS 0 /100 WBC 0-0 (BEAKER) (test code = 413) NEUTROPHILS RELATIVE PERCENT 78 % (BEAKER) (test code = 429) LYMPHOCYTES RELATIVE PERCENT 10 % (BEAKER) (test code = 430) MONOCYTES RELATIVE PERCENT 9 % (BEAKER) (test code = 431) EOSINOPHILS RELATIVE PERCENT 2 % (BEAKER) (test code = 432) BASOPHILS RELATIVE PERCENT 0 % (BEAKER) (test code = 437) NEUTROPHILS ABSOLUTE COUNT 4.60 K/ L 1.56-6.13 (BEAKER) (test code = 670) LYMPHOCYTES ABSOLUTE COUNT 0.58 K/ L 1.18-3.74 L (BEAKER) (test code = 414) MONOCYTES ABSOLUTE COUNT (BEAKER) 0.54 K/ L 0.24-0.36 H (test code = 415) EOSINOPHILS ABSOLUTE COUNT 0.11 K/ L 0.04-0.36 (BEAKER) (test code = 416) BASOPHILS ABSOLUTE COUNT (BEAKER) 0.02 K/ L 0.01-0.08 (test code = 417) IMMATURE GRANULOCYTES-RELATIVE 0 % 0-1 PERCENT (BEAKER) (test code = 2801) Notes Date/Time Note Provider Source 2019-08-03 20:35:19-00:00 [facility] OPERATIVE/PROCEDURE REPORT LOREN GILL FACILITY: [facility] Billing #: [id number] Room: [address] [place] [address] MR #: [id number] : 1970 DATE OF PROCEDURE: 08/03/2019 SURGEON: Ash Holden MD PREOPERATIVE DIAGNOSIS: Right hydronephrosis. POSTOPERATIVE DIAGNOSIS: Right hydronephrosis. OPERATIVE PROCEDURES: Cystourethroscopy, right r etrograde pyelogram, right rigid ureteroscopy with laser l ithotripsy and basket stone extraction, and right ureteral sten t placement. DAM TENDER ASSISTANT: Tucker Santiago MD ANESTHESIA: General. ANTIBIOTICS: Levaquin. DRAINS: 7-Surinamese x 24 cm right Polaris Ultra ure teral stent on a string. BLOOD LOSS: Minimal. COMPLICATIONS: None. FINDINGS: 1. 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 2. Narrowed intramural tunnel. 3. Partially impacted mid ureteral stone fragmen ts, 2 to 3 mm fragment as well as 4 to 5 mm fragment. SPECIMENS: Ureteral stone for analysis. INDICATIONS FOR OPERATIVE PROCEDURE: Ms. 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 However, she was also fou nd incidentally to have severe right hydronephrosis and hydroureter down to the level of what seemed lik e a 6 mm calculus just below the iliac arteries. She was nontoxic and her creatinine was normal and there was no evide nce of infection on urinalysis. Her pleural effusion wa s drained and her pain improved, but she still had some residu al discomfort. Given her lack of access to care and her persist ent symptoms, we decided to proceed with surgical management o f the stone today. DESCRIPTION OF PROCEDURE: The patient was identi fied in the preoperative holding area in the operating room both verbally and by wrist bracelet. Informed consent had been obtained. The patient was brought to the operating room, p laced in the supine position where appropriate anesthesia was induced. She was then placed in the relaxed lithotomy positio n with all pressure points padded and no joints flexed beyo nd 90 degrees. Her genitalia were prepped and draped in usual s terile fashion and a 22-Surinamese rigid cystoscope was used to per form cystourethroscopy. Panendoscopy was performed. Her urethra was within normal limits. Her bladde r capacity was slightly diminished and she had evidence of radi ation cystitis changes. Her ureteral orifices were a bit narrow ed, but were in the normal location. I began the procedure by passing a Sensor wire u p into the proximal collecting system without resistance or complication. Then, an 8/10-Surinamese Desilets-Hallman sheath was used to dilate the distal ureter, although the 10-Surinamese compon ent of that device was difficult to pass more than 1 cm or s o up the right ureter. Then, the mini rigid ureteroscope was a ssembled and rigid ureteroscopy was performed alongside the w faviola. Indeed, the intramural tunnel was tied and very careful calibration around the ureteroscope in order for us to accom plish our goal. Ultimately, we were able to transverse the narr owing and the ureter give way to much more normal caliber. We were able to travel quite far up the ureter all the way to th e ureteropelvic junction, ultimately thanks to the straightness of her ureter. However correction along that course, we encountere d two ureteral fragments, one about 2 mm and one about 5 mm. Th e 5 mm fragment was partially impacted. A 200 micron la ser fiber was used on the dusting settings to work on these st ones and ultimately three dominant fragments were yielded , which were extracted with NGage basket. A couple of very sm all fragments remained in the NCompass basket was used to drag out the residual debris. There was no injury to the uret er on retrograde pyelogram or visually, but there was some significant edema from her impaction. A 7-Surinamese x 24 cm Polaris Ultra ureteral stent was passed over the wire yielding excellent proximal and distal coils. The distal coil was confirmed cystoscopically. 2% viscous lidocaine was instilled per urethra for postoperative analgesia and the patient was returned to the supine position where she awoke from anesthesia without event. She was transferred to the PACU i n stable condition and ultimately will be transferred [facility] to her hospital room. She was given very strict instructions to remove her stent on a string in 1 week. She was also given strict inst ructions that if for some reason she could not visualize her s tring and she absolutely again to follow up for stent removal or if she would run the risk of renal damage and loss. I was pre sent and performed all michael aspects of the procedure. STEPHANIE/COLE /[id number]
--- NOTE | 2023-03-23 20:55 | RAD REPORT ---
EXAM DESCRIPTION: CT - Abdomen Pelvis Wo Contrast - 03/23/2023 8:09 pm CLINICAL HISTORY: Abdominal pain /vaginal bleeding COMPARISON: 2018 and 2011 TECHNIQUE: Computed axial tomography of the abdomen and pelvis was obtained. IV and oral contrast we re not requested. All CT scans are performed using dose optimization technique as appropriate and may include automated exposure control or mA/KV adjustment according to patient size. FINDINGS: The evaluation of solid organs, vessels and bowel is limited secondary to the lack of con trast administration. The liver, spleen, pancreas, adrenals and kidneys appear grossly normal. Moderate amount of stool within the colon. There is no evidence of diverticulitis. Stable sclerosis L4 vertebral body likely benign IMPRESSION: Moderate amount of stool within the colon No gross abnormality of the vagina/cervix/uterus although evaluation is limited
--- NOTE | 2023-03-23 21:13 | ER ---
Nurse's Notes [facility] Name: Shannon Gill Age: 53 yrs Sex: Female : 1970 Arrival Date: 03/23/2023 Time: 19:08 Bed 10 Private MD: Diagnosis: Abnormal uterine and vaginal bleeding, unspecified Presentation: 03/23 19:41 Chief complaint: Patient states: vaginal bleeding starting around 0900 today and it lg3 stopped around 1300. denies pain. i had cervical cancer with chemo and radiation around 12 years ago and im not supposed to have cycles. Coronavirus screen: Client denies travel out of the [place] in the last 14 days. At this time, the client does not indicate any symptoms associated with coronavirus-19. Ebola Screen: No symptoms or risks identified at this time. Initial Sepsis Screen: Does the patient meet any 2 criteria? No. Patient's initial sepsis screen is negative. Does the patient have a suspected source of infection? No. Patient's initial sepsis screen is negative. Risk Assessment: Do you want to hurt yourself or someone else?. Onset of symptoms was March 23, 2023. 19:41 Method Of Arrival: Ambulatory lg3 19:41 Acuity: JOSSY 3 lg3 Triage Assessment: 19:44 General: Appears in no apparent distress. comfortable, Behavior is calm, cooperative. lg3 Pain: Denies pain. Neuro: No deficits noted. Palma Agitation-Sedation Scale (RASS): 0 - Alert and Calm Level of Consciousness is awake, alert, obeys commands, Oriented to person, place, time, situation. Cardiovascular: No deficits noted. Respiratory: No deficits noted. Airway is patent Respiratory effort is even, unlabored, Respiratory pattern is regular, symmetrical. GI: No deficits noted. Abdomen is round non-distended, Abd is soft and non tender X 4 quads. : Reports vaginal bleeding that is. Derm: No deficits noted. No signs and/or symptoms reported regarding the dermatologic system. Skin is intact, is healthy with good turgor, Skin is dry, Skin is normal, Skin temperature is warm. Musculoskeletal: No deficits noted. No signs and/or symptoms reported regarding the musculoskeletal system. 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 - Social history:: Smoking status: Patient reports the use of cigarette tobacco products, smokes one-half pack cigarettes per day, Patient/guardian denies using alcohol, street drugs. Screenin:00 [facility] ED Fall Risk Assessment (Adult) Score/Fall Risk Level 0 - 2 = Low Risk. Abuse eh3 screen: Denies threats or abuse. Denies injuries from another. Nutritional screening: No deficits noted. Tuberculosis screening: No symptoms or risk factors identified. Assessment: 21:00 General: Appears in no apparent distress. comfortable, Behavior is cooperative, eh3 appropriate for age, anxious. Pain: Denies pain. Neuro: Level of Consciousness is awake, alert, obeys commands, Oriented to person, place, time, situation. Cardiovascular: Capillary refill < 3 seconds Patient's skin is warm and dry. Respiratory: Airway is patent Respiratory effort is even, unlabored. GI: Abdomen is round non-distended. : Reports vaginal bleeding that is bright red, moderate flow. Derm: Skin is pink, warm \T\ dry. Vital Signs: 19:41 BP 158 / 107; Pulse 103; Resp 17 S; Temp 99.1(O); Pulse Ox 99% on R/A; Weight 58.97 kg lg3 (R); Height 5 ft. 6 in. ; 21:00 BP 150 / 112; Pulse 100; Resp 18; Pulse Ox 98% on R/A; eh3 19:41 Body Mass Index 20.98 (58.97 kg, 167.64 cm) lg3 ED Course: 19:11 Patient arrived in ED. ja2 19:24 [facility] Hoffman [facility]C [facility]. kb 19:24 Yoel Wilson MD is Attending Physician. kb 19:44 Triage completed. lg3 19:44 Arm band placed on right wrist. lg3 20:11 CT Abd/Pelvis - Without Contrast In Process Unspecified. EDMS 21:00 Patient has correct armband on for positive identification. Bed in low position. Call eh3 light in reach. Side rails up X2. Adult w/ patient. 21:28 No provider procedures requiring assistance completed. Patient did not have IV access eh3 during this emergency room visit. Administered Medications: No medications were administered Medication: 21:28 VIS not applicable for this client. eh3 Outcome: 21:12 Discharge ordered by MD. del valle 21:28 Discharged to home ambulatory, with family. eh3 21:28 Condition: stable 21:28 Discharge instructions given to patient, family, Instructed on discharge instructions, follow up and referral plans. Demonstrated understanding of instructions, follow-up care. 21:28 Patient left the ED. eh3 Signatures: Dispatcher [employer] EDMS Becky Hoffman, DANE-Cuate VELA-Ana Maria Arteaga RN RN lg3 Jany Gatica Erin, MATT RN eh3 Corrections: (The following items were deleted from the chart) 19:48 19:41 BP 158 / 81; Pulse 103bpm; Resp 17bpm; Spontaneous; Pulse Ox 99% RA; Temp 99.1F lg3 Oral; 58.97 kg Reported; Height 5 ft. 6 in.; BMI: 20.9; lg3
--- NOTE | 2023-03-23 21:13 | EDPHYS ---
Physician Documentation [facility] Name: Shannon Gill Age: 53 yrs Sex: Female : 1970 Arrival Date: 03/23/2023 Time: 19:08 Bed 10 Private MD: ED Physician Yoel Wilson HPI: 03/23 21:17 This 53 yrs old Female presents to ER via Ambulatory with complaints of kb Vaginal Bleeding. 21:17 The patient presents with vaginal bleeding that is light. Onset: The symptoms/episode kb began/occurred at 09:00. Modifying factors: The symptoms are alleviated by nothing, the symptoms are aggravated by nothing. Associated signs and symptoms: Pertinent positives: vaginal bleeding. Severity of symptoms: At their worst the symptoms were mild, in the emergency department the symptoms have resolved. The patient has not experienced similar symptoms in the past. The patient has not recently seen a physician. pt reports she had vaginal spotting today from 0900 to 1300. states she has a history of cervical cancer and was told she wouldn't have vaginal bleeding again after chemo and radiation so the spotting concerned her. Denies any pain. 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 - Social history:: Smoking status: Patient reports the use of cigarette tobacco products, smokes one-half pack cigarettes per day, Patient/guardian denies using alcohol, street drugs. ROS: 21:16 Constitutional: Negative for fever, chills, and weight loss. kb 21:16 All other systems are negative. Exam: 21:16 Constitutional: This is a well developed, well nourished patient who is awake, alert, kb and in no acute distress. Head/Face: Normocephalic, atraumatic. ENT: Moist Mucous membranes Cardiovascular: Regular rate and rhythm with a normal S1 and S2. No gallops, murmurs, or rubs. No pulse deficits. Respiratory: Respirations even and unlabored. No increased work of breathing. Talking in full sentences Abdomen/GI: Soft, non-tender. No distention Skin: Warm, dry with normal turgor. Normal color. MS/ Extremity: Pulses equal, no cyanosis. Neurovascular intact. Full, normal range of motion. Neuro: Awake and alert, GCS 15, oriented to person, place, time, and situation. Moves all extremities. Normal gait. Vital Signs: 19:41 BP 158 / 107; Pulse 103; Resp 17 S; Temp 99.1(O); Pulse Ox 99% on R/A; Weight 58.97 kg lg3 (R); Height 5 ft. 6 in. ; 21:00 BP 150 / 112; Pulse 100; Resp 18; Pulse Ox 98% on R/A; eh3 19:41 Body Mass Index 20.98 (58.97 kg, 167.64 cm) lg3 MDM: 19:43 Patient medically screened. kb 21:20 Differential diagnosis: cancer, abnormal bleeding, fibroids. Data reviewed: vital kb signs, nurses notes. Counseling: I had a detailed discussion with the patient and/or guardian regarding: the historical points, exam findings, and any diagnostic results supporting the discharge/admit diagnosis, radiology results, the need for outpatient follow up, an OB/Gyne specialist, to return to the emergency department if symptoms worsen or persist or if there are any questions or concerns that arise at home. Special discussion: I have referred the patient to see his PCP for further evaluation of high blood pressure. ED course: Pt is nontoxic in appearance, has no bleeding now, denies pain. Pt is asymptomatic of BP. Educated to follow up with NEONATAL NURSE PRACTITIONER and family medicine for further evaluation. 03/23 19:47 Order name: CT Abd/Pelvis - Without Contrast; Complete Time: 21:05 kb Administered Medications: No medications were administered Disposition Summary: 03/23/23 21:12 Discharge Ordered Location: Home kb Condition: Stable kb Diagnosis - Abnormal uterine and vaginal bleeding, unspecified kb Followup: kb - With: Emergency Department - When: As needed - Reason: Worsening of condition Followup: kb - With: Private Physician - When: 2 - 3 days - Reason: Recheck today's complaints, Continuance of care, Re-evaluation by your physician Discharge Instructions: - Discharge Summary Sheet kb - Abnormal Uterine Bleeding, [id number] kb Forms: - Medication Reconciliation Form kb - Thank You Letter kb - Antibiotic Education kb - Prescription Opioid Use kb Signatures: Dispatcher [employer] EDBecky Solitario, OPEN HEARTH MELTER-C DANE-Ana Maria Arteaga, RN RN lg3 Corrections: (The following items were deleted from the chart) 21:19 21:17 pt reports she had vaginal spotting today from 0900 to 1300. states she has a kb history of cervical cancer and was told she wouldn't have vaginal bleeding again after chemo and radiation so the spotting concerned her. . kb
[2023-03-23 23:45] VITALS: TEMP 97.9
[2023-03-23 23:56] VITALS: BP 135/84; O2SAT 100
== END 2023-03-23 21:28 | disposition home or self-care (01) ==
LOC: ER 19:08
DX: N93.9 Abnormal uterine and vaginal bleeding, unspecified (principal)
CPT/HCPCS: 74176; 99283

== ENCOUNTER 2023-11-22 17:56 | Inpatient (IN) | payer BC, SELFPAY ==
[2023-11-22] MEDS ORDERED: KETOROLAC 30 MG/ML INJ ONE (18:16)
[2023-11-22] MEDS ORDERED: ONDANSETRON 4 MG/2 ML VIAL ONE (18:16)
[2023-11-22] MEDS ORDERED: NA CHLORIDE 0.9% 1,000 ML ONE (18:17)
[2023-11-22] MEDS ORDERED: MORPHINE 4 MG/ML SYR ONE (18:17)
[2023-11-22 18:28] LABS: Absolute Lymphocytes (CBC) 0.9 K/uL (0.7-4.9); Hematocrit 45.4 % (36.0-45.0); Lymphocytes % 7.8 % (15.3-44.8); MCV 86.8 fL (80-100); MPV 9.6 fL (7.6-11.3); Platelets 221 thou/uL (152-406); RBC Red Blood Cell Count 5.23 M/uL (3.86-4.86)
[2023-11-22 19:00] LABS: Albumin 3.4 g/dL (3.4-5.0); Potassium 3.4 mEq/L (3.5-5.1); Protein, Total 7.7 g/dL (6.4-8.2)
[2023-11-22] MEDS ORDERED: INSULIN REGULAR (HUMAN) 100 UNIT/ML ONE (19:08)
[2023-11-22 19:34] LABS: Blood Morphology Comment NOT SEEN (NOT SEEN); Platelet Estimate ADEQ; White Blood Cell Scan OK (OK)
--- NOTE | 2023-11-22 19:34 | RAD REPORT ---
EXAM DESCRIPTION: CT - Abdomen Pelvis Wo Contrast - 11/22/2023 7:23 pm CLINICAL HISTORY: Abdominal pain. ABD PAIN COMPARISON: Abdomen Pelvis Wo Contrast dated 03/23/2023 TECHNIQUE: CT imaging of the abdomen and pelvis was performed without contrast. Solid organ, bowel a nd vascular assessment is limited due to lack of IV and oral contrast. All CT scans are performed using dose optimization technique as appropriate and may include automated exposure control or mA/KV adjustment according to patient size. FINDINGS: The lower lung tavera are clear. The liver, spleen, pancreas, adrenal glands are within normal limits for a limited non-contrast exami nation.Severe bilateral hydronephrosis and bilateral hydroureter noted. Severe distention of the urin emeterio bladder also seen. No bowel obstruction, free air, free fluid or abscess. The appendix is normal. The osseous structures are within normal limits. IMPRESSION: Severe bilateral hydronephrosis and bilateral hydroureter. There is also severe distenti on of the urinary bladder. Findings likely indicate bladder outlet obstruction or neurogenic bladder. A limited non-contrast examination was performed as detailed.
--- NOTE | 2023-11-22 19:52 | EDPHYS ---
Physician Documentation [facility] Name: Shannon Gill Age: 53 yrs Sex: Female : 1970 Arrival Date: 11/22/2023 Time: 17:56 Bed 20 Private MD: ED Physician Yehuda Jarrett HPI: 11/22 18:06 This 53 yrs old Female presents to ER via Unassigned with complaints of ec2 Leftside pain, Back Pain. 18:06 Patient arrives today for evaluation of left flank pain and left abdominal pain. ec2 Reports pain for ongoing for 2 days. Also reports increasing urinary frequency over the past month. Reports some nausea and vomiting. Patient reports no fevers or chills, no cough and cold symptoms, denies any diarrheal symptoms. Patient reports history of diabetes.. Historical: - Allergies: 18:06 No Known Allergies; ll1 - PMHx: 18:06 cervical cancer; ll1 - Immunization history:: Adult Immunizations up to date. - Social history:: Smoking status: Patient reports the use of cigarette tobacco products, smokes one pack cigarettes per day. ROS: 18:06 Constitutional: as per hpi ec2 Exam: 18:06 Constitutional: GEN: NAD Head: atraumatic Eyes: EOMI Ears: External ears are ec2 normal. CV: regular rate LUNGS: no respiratory distress ABD: non-distended, soft, tender in the left lower quadrant, no guarding, not rigid SKIN: no evidence of rashes MSK: no evidence of trauma NEURO: moves all extremities equally Vital Signs: 18:07 BP 114 / 96; Pulse 111; Resp 18; Temp 97.4(O); Pulse Ox 100% ; Weight 60.78 kg; Height ll1 5 ft. 6 in. ; Pain 10/10; 18:45 Pulse 106; ec2 19:00 BP 156 / 108; Pulse 96; Resp 18 S; Pulse Ox 99% on R/A; as6 20:00 BP 105 / 85; Pulse 98; Resp 16 S; Pulse Ox 98% on R/A; as6 20:58 BP 115 / 84; Pulse 96; Resp 17 S; Pulse Ox 98% on R/A; as6 18:07 Body Mass Index 21.63 (60.78 kg, 167.64 cm) ll1 18:07 Pain Scale: Adult ll1 MDM: 18:05 Patient medically screened. ec2 18:06 Data reviewed: vital signs. ED course: Patient arrives today for evaluation of left ec2 flank and abdominal pain. Examination remarkable for abdominal findings as noted above. Will obtain lab work, treat the patient's symptoms and obtain CT imaging. . 18:51 Transition of care: After a detail discussion of the patient's case, care is ec2 transferred to Yehuda Jarrett MD. ED course: Patient signed out to oncoming physician with pending lab work, reassessment and CT imaging. . 19:48 Differential diagnosis: Neoplasm Pyelonephritis Neurogenic bladder, spinal cord rn problem, neuropathy from diabetes, bladder outlet obstruction. Consideration of Admission/Observation Patient was admitted/placed on observation. Escalation of care including admission/observation considered. Care significantly affected by the following chronic conditions: Diabetes. Counseling: I had a detailed discussion with the patient and/or guardian regarding the historical points, exam findings, and any diagnostic results supporting the discharge/admit diagnosis, lab results, radiology results, the need for further work-up and treatment in the hospital. ED course: Patient with severe bladder distention causing bilateral hydroureter and hydronephrosis. No mass identified on imaging. Patient gives story of 1 month of bowel and bladder incontinence. Mild numbness to the left lower extremity. Otherwise denies any weakness. Unable to tell at this time if this is spinal cord origin versus neurogenic bladder versus stricture and bladder outlet obstruction. Magdaleno catheter being placed, organizing transfer for higher level of care as we do not have MRI or urology for consultation.. 21:04 ED course: Consulted with urologist at [facility], does not see need for urological rn consultation, thinks this is more medical and nonsurgical. Was called back by hospitalist Dr. Swift once again and he states given urology stance and they are in the same boat of not getting MRI at night that patient can be admitted here at our facility. Magdaleno catheter has been placed with more than a liter out, will consult with our hospitalist for admission here and workup.. 11/22 18:05 Order name: CBC with Diff; Complete Time: 19:37 ec2 11/22 18:05 Order name: CMP; Complete Time: 19:04 ec2 11/22 18:05 Order name: Lipase; Complete Time: 19:04 ec2 11/22 18:05 Order name: Urinalysis w/ reflexes; Complete Time: 21:11 2 11/22 19:34 Order name: CBC Smear Scan; Complete Time: 19:37 [facility] 11/22 21:13 Order name: Urine Culture [facility] 11/22 21:33 Order name: Basic Metabolic Panel [facility] 11/22 21:33 Order name: Basic Metabolic Panel; Complete Time: 09:46 [facility] 11/22 21:33 Order name: Basic Metabolic Panel [facility] 11/22 21:33 Order name: Basic Metabolic Panel [facility] 11/22 21:33 Order name: CBC with Automated Diff [facility] 11/22 21:33 Order name: CBC with Automated Diff; Complete Time: 09:46 [facility] 11/22 21:33 Order name: CBC with Automated Diff [facility] 11/22 21:33 Order name: CBC with Automated Diff [facility] 11/22 19:18 Order name: Abdomen ; Complete Time: 19:37 [facility] 11/22 21:33 Order name: CONS Physician Consult [facility] 11/22 18:05 Order name: IV Saline Lock; Complete Time: 18:24 2 11/22 18:05 Order name: Labs collected and sent; Complete Time: 18:24 2 11/22 19:26 Order name: Magdaleno; Complete Time: 20:46 rn Administered Medications: 18:20 Drug: NS 0.9% IV 1000 ml IV at 1 bolus Per protocol; 1000 mL bolus Route: IV; Rate: 1 nj1 bolus; Site: right forearm; 21:57 Follow up: Response: No adverse reaction; IV Status: Completed infusion; IV Intake: as6 1000ml 18:20 Drug: Ondansetron IVP 4 mg IVP once; over 2 minutes Route: IVP; Site: right forearm; nj1 21:58 Follow up: Response: No adverse reaction as6 18:22 Drug: TORadol - Ketorolac IVP 15 mg IVP once Route: IVP; Site: right forearm; nj1 21:58 Follow up: Response: No adverse reaction as6 18:23 Drug: morphine IVP or IV 4 mg IVP once over 4 mins Route: IVP; Infused Over: 4 mins; nj1 Site: right forearm; 21:57 Follow up: Response: No adverse reaction as6 19:11 Drug: Insulin Regular Human Sub-Q 10 units Sub-Q once {Co-Signature: kcKristal (chago Michael RN).} Route: Sub-Q; Site: right lower abdomen; 21:57 Follow up: Response: No adverse reaction as6 Disposition Summary: 11/22/23 21:06 Hospitalization Ordered Notes: Hospitalization Status: Observation rn Provider: Eriberto Davis rn Location: Telemetry/MedSurg (observation)(11/22/23 21:06) rn Condition: Stable(11/22/23 21:06) rn Problem: new(11/22/23 21:06) rn Symptoms: have improved(11/22/23 21:06) rn Bed/Room Type: Standard rn Room Assignment: 204(11/22/23 21:43) Diagnosis - Unspecified urinary incontinence(11/22/23 21:06) rn - Unspecified hydronephrosis(11/22/23 21:06) rn Forms: - Medication Reconciliation Form rn - SBAR form rn - Leadership Thank You Letter rn Signatures: Dispatcher [employer] [facility] Yehuda Jarrett MD MD rn Garcia, Cindy, RN RN cg Asmita Mcfarlane RN RN ll1 Ellis Khoury RN RN as6 Ida Odell RN RN nj1 Nikolay Gama MD MD ec2 Annabelle Michael RN kc6 Corrections: (The following items were deleted from the chart) 18:07 18:06 Constitutional: GEN: NAD Head: atraumatic Eyes: EOMI Ears: External ears are ec2 normal. CV: regular rate LUNGS: no respiratory distress ABD: non-distended, soft, tender in the left lower quadrant, no guarding, not rigid SKIN: no evidence of rashes MSK: no evidence of trauma NEURO: moves all extremities equally ec2 18:32 18:06 ED course: Patient arrives today for evaluation of left flank and abdominal pain. ec2 Examination remarkable for abdominal findings as noted above. Will obtain lab work, treat the patient's symptoms and obtain CT imaging. Currently considering processes such as UTI, pyelonephritis, ureteral stone.. ec2 19:18 18:06 Abdomen Pelvis W Con+CT.RAD.BRZ ordered. [facility] EDMS 21:05 19:51 rn rn 21:05 19:51 [facility] rn rn : 19:51 Higher level of care rn rn : 19:51 Stable rn rn : 19:51 new rn rn : 19:51 have improved rn rn : 19:51 Unspecified hydronephrosis rn rn : 19:51 Hydroureter rn rn : 19:51 Unspecified urinary incontinence rn rn : 21:06 Home rn rn : 21:06 new rn rn : 21:06 have improved rn rn : 21:06 Stable rn rn : 21:06 Unspecified hydronephrosis rn rn : 21:06 Unspecified urinary incontinence rn rn 21:43 21:06 rn cg
--- NOTE | 2023-11-22 19:52 | ER ---
Nurse's Notes [facility] Name: Shannon Gill Age: 53 yrs Sex: Female : 1970 Arrival Date: 11/22/2023 Time: 17:56 Bed 20 Private MD: Diagnosis: Unspecified urinary incontinence;Unspecified hydronephrosis Presentation: 11/22 18:07 Chief complaint: Patient states: L flank pain for 2 days with N/V. Odor of urine, ll1 unable to hold urine this past month, wearing depends. Coronavirus screen: Client denies travel out of the [place] in the last 14 days. At this time, the client does not indicate any symptoms associated with coronavirus-19. Ebola Screen: Patient denies travel to an Ebola-affected area in the 21 days before illness onset. Initial Sepsis Screen: Does the patient meet any 2 criteria? HR > 90 bpm. No. Patient's initial sepsis screen is negative. Does the patient have a suspected source of infection? Yes: Dysuria/Frequency/Urgency/UTI Acute abdominal pain. Risk Assessment: Do you want to hurt yourself or someone else? Patient reports no desire to harm self or others. Onset of symptoms was November 20, 2023. 18:07 Method Of Arrival: Ambulatory ll1 18:07 Acuity: JOSSY 3 ll1 Historical: - Allergies: 18:06 No Known Allergies; ll1 - PMHx: 18:06 cervical cancer; ll1 - Immunization history:: Adult Immunizations up to date. - Social history:: Smoking status: Patient reports the use of cigarette tobacco products, smokes one pack cigarettes per day. Screenin:10 [facility] ED Fall Risk Assessment (Adult) Score/Fall Risk Level 0 - 2 = Low Risk nj1 Oriented to surroundings, Maintained a safe environment, Hourly rounding (assess needs \T\ fall precautionary measures) done. Abuse screen: Denies threats or abuse. Denies injuries from another. Nutritional screening: No deficits noted. Tuberculosis screening: No symptoms or risk factors identified. Assessment: 18:10 General: Appears in no apparent distress. uncomfortable, Behavior is cooperative, nj1 anxious. Pain: Complains of pain in left flank Pain currently is 10 out of 10 on a pain scale. 18:10 Neuro: Level of Consciousness is awake, alert, obeys commands, Oriented to person, nj1 place, time, situation. Cardiovascular: Patient's skin is warm and dry. Respiratory: Airway is patent Respiratory effort is even, unlabored. : Reports urinary frequency. 19:03 Reassessment: Lab called to report 570 BG, provider notified . rs5 20:58 General: pt states pain has improved with carreno in place . as6 Vital Signs: 18:07 BP 114 / 96; Pulse 111; Resp 18; Temp 97.4(O); Pulse Ox 100% ; Weight 60.78 kg; Height ll1 5 ft. 6 in. ; Pain 10/10; 18:45 Pulse 106; ec2 19:00 BP 156 / 108; Pulse 96; Resp 18 S; Pulse Ox 99% on R/A; as6 20:00 BP 105 / 85; Pulse 98; Resp 16 S; Pulse Ox 98% on R/A; as6 20:58 BP 115 / 84; Pulse 96; Resp 17 S; Pulse Ox 98% on R/A; as6 18:07 Body Mass Index 21.63 (60.78 kg, 167.64 cm) ll1 18:07 Pain Scale: Adult ll1 ED Course: 17:57 Patient arrived in ED. ts1 17:58 Nikolay Gama MD is Attending Physician. ec2 18:00 Patient placed in an exam room, on a stretcher. ll1 18:06 Arm band placed on. ll1 18:07 Ida Odell, MATT is Primary Nurse. nj1 18:09 Triage completed. ll1 18:10 Patient has correct armband on for positive identification. Bed in low position. Call nj1 light in reach. 18:10 Provided Education on: call light, fall precautions. nj1 18:10 Inserted saline lock: 22 gauge in right forearm, using aseptic technique. Blood nj1 collected. 19:03 Attending Physician role handed off by Nikolay Gama MD rn 19:03 Yehuda Jarrett MD is Attending Physician. rn 19:25 Abdomen In Process Unspecified. EDMS 20:47 Carreno cath inserted, using sterile technique, 18 Fr., by wa, balloon inflated, to as6 gravity drainage, returned cloudy urine. Patient tolerated well. 21:06 Eriberto Davis MD is Hospitalizing Provider. rn 22:02 No provider procedures requiring assistance completed. Patient admitted, IV remains in as6 place. Administered Medications: 18:20 Drug: NS 0.9% IV 1000 ml IV at 1 bolus Per protocol; 1000 mL bolus Route: IV; Rate: 1 nj1 bolus; Site: right forearm; 21:57 Follow up: Response: No adverse reaction; IV Status: Completed infusion; IV Intake: as6 1000ml 18:20 Drug: Ondansetron IVP 4 mg IVP once; over 2 minutes Route: IVP; Site: right forearm; nj1 21:58 Follow up: Response: No adverse reaction as6 18:22 Drug: TORadol - Ketorolac IVP 15 mg IVP once Route: IVP; Site: right forearm; nj1 21:58 Follow up: Response: No adverse reaction as6 18:23 Drug: morphine IVP or IV 4 mg IVP once over 4 mins Route: IVP; Infused Over: 4 mins; nj1 Site: right forearm; 21:57 Follow up: Response: No adverse reaction as6 19:11 Drug: Insulin Regular Human Sub-Q 10 units Sub-Q once {Co-Signature: winifred (chago Michael RN).} Route: Sub-Q; Site: right lower abdomen; 21:57 Follow up: Response: No adverse reaction as6 Medication: 20:47 VIS not applicable for this client. as6 Intake: 21:57 IV: 1000ml; Total: 1000ml. as6 Output: 22:12 Urine: 1500ml (Carreno); Total: 1500ml. as6 Outcome: 19:51 ER care complete, transfer ordered by MD. rn 21:06 Discharge ordered by MD. rn 21:06 Decision to Hospitalize by Provider. rn 22:01 Admitted to Med/surg accompanied by tech, family with patient, via wheelchair, room as6 204, with chart, Report called to Kee GUTIERREZ 22:01 Condition: stable 22:01 Instructed on the need for admit, 22:12 Patient left the ED. as6 Signatures: Dispatcher [employer] [facility] Yehuda Jarrett MD MD rn Lewis, Lynsay RN RN ll1 Ellis Khoury RN RN as6 Thompson Martinez RN RN rs5 Ida Odell RN RN nj1 Natasha Johnston PAS PAS ts1 Nikolay Gama MD MD ec2 Annabelle Michael RN kc6
[2023-11-22 21:02] LABS: Specific Gravity 1.021 (1.005-1.030); Urine Bacteria <20 /HPF (<20); Urine Bilirubin NEGATIVE (Negative); Urine Blood Trace (Negative); Urine Clarity Extremely Turbid (Clear); Urine Color Colorless (Yellow); Urine Glucose 4+ (Over) (Negative); Urine Protein NEGATIVE (Negative); Urine RBC >50 /HPF (None Seen); Urine Urobilinogen Normal (Normal)
--- NOTE | 2023-11-22 21:41 | P.HP ---
Certification for Inpatient Patient admitted to: Inpatient With expected LOS: >2 Midnights Practitioner: I am a practitioner with admitting privileges, knowledge of patient current condition, hospital course, and medical plan of care. Services: Services provided to patient in accordance with Admission requirements found in Title 42 Section 412.3 of the Code of Federal Regulations Patient History Date of Service: 11/23/23 Reason for admission: Acute kidney injury, hyperglycemia, hydronephrosis. History of Present Illness: 53-year-old female patient with medical history significant for history of cervical cancer who was evaluated for episode of lethargy and found to have urinary obstruction. Imaging showed distended bladder and bilateral hydronephrosis and patient was discussed with outlying urology who recommended inpatient care and no transfer to higher level of care. A Magdaleno catheter was placed for drainage of obstruction of the bladder and patient was admitted to the hospital for further management. Labs done in the ED was concerning for creatinine of 1.6. Allergies No Known Allergies Allergy (Unverified 02/25/18 18:34) - Past Medical/Surgical History -: History of cervical cancer. -: Biopsy of Cervix - Family History Mother -: Diabetes - Social History Alcohol use: No Review of Systems General: Weakness, Malaise Eyes: Unremarkable ENT: Unremarkable Respiratory: Unremarkable Cardiovascular: Unremarkable Gastrointestinal: Unremarkable Genitourinary: Incontinence Musculoskeletal: Unremarkable Integumentary: Unremarkable Neurological: Unremarkable Lymphatics: Unremarkable Physical Examination - Physical Exam General: Alert, Oriented x3 HEENT: Atraumatic Neck: Supple Respiratory: Normal air movement Cardiovascular: Regular rate/rhythm, Normal S1 S2 Gastrointestinal: Soft and benign Musculoskeletal: No swelling Neurological: Normal speech, Normal strength at 5/5 x4 extr - Studies Laboratory Data (last 24 hrs) 11/22/23 11/22/23 18:10 18:10 WBC 11.90 H Hgb 15.5 H Hct 45.4 H Plt Count 221 Sodium 129 L Potassium 3.4 L BUN 21 H Creatinine 1.61 H Glucose 570 H* Total Bilirubin 1.0 AST 5 L ALT 16 Alkaline Phosphatase 142 H Lipase 25 Assessment and Plan - Plan Obstructive uropathy: Patient has significant bladder outlet obstruction perhaps as a complication of prior cervical cancer. Urology consultation placed. Continue Magdaleno catheterization for drainage. Monitor urine output closely. Diabetes type 2: Poorly controlled with blood glucose of over 500. Continue aggressive sliding scale insulin for glucose control and carb restricted diet. Will continue outpatient medication for blood glucose control Acute kidney injury: Creatinine is elevated at 1.6. This is deemed secondary to obstructive uropathy. Magdaleno catheter has been placed and urine drainage is adequate. Follow trend of kidney function closely. Prophylaxis: Lovenox for DVT prophylaxis CODE STATUS: Full code Disposition: We will treat obstructive uropathy and she will be discharged once plan of care is finalized and clinical state is stable. - Advance Directives Does patient have a Living Will: No Does patient have a Durable POA for Healthcare: No
[2023-11-22] MEDS: NA CHLORIDE 0.9% 1,000 ML IV SCH (23:02)
[2023-11-22 23:11] VITALS: BMI 20.5
[2023-11-23] MEDS ORDERED: ONDANSETRON 4 MG/2 ML VIAL IV PRN
[2023-11-23 07:10] LABS: Absolute Lymphocytes (CBC) 0.8 K/uL (0.7-4.9); Hematocrit 41.8 % (36.0-45.0); Lymphocytes % 9.4 % (15.3-44.8); MCV 86.5 fL (80-100); MPV 9.1 fL (7.6-11.3); Platelets 173 thou/uL (152-406); RBC Red Blood Cell Count 4.83 M/uL (3.86-4.86)
[2023-11-23 07:25] LABS: Potassium 3.2 mEq/L (3.5-5.1)
[2023-11-23] MEDS: INSULIN REGULAR (HUMAN) 100 UNIT/ML SQ SCH (08:17)
[2023-11-23] MEDS ORDERED: D50W 25 GM/50 ML SYRINGE IV PRN ×3 (08:23→12:12)
[2023-11-23] MEDS ORDERED: GLUCAGON 1 MG/VIAL IM PRN ×3 (08:23→12:12)
[2023-11-23] MEDS ORDERED: D10W 125 ML IV PRN (08:35)
[2023-11-23] MEDS: ENOXAPARIN 40 MG/0.4 ML SQ SCH (08:56)
[2023-11-23] MEDS: LORazepam 2 MG/ML VIAL IV PRN (08:56)
[2023-11-23] MEDS: INSULIN GLARGINE 100 UNIT/ML SQ SCH (09:02)
--- NOTE | 2023-11-23 09:36 | P.PN ---
Subjective Date of Service: 11/23/23 Chief Complaint: Acute kidney injury, hyperglycemia, hydronephrosis. Pt is resting comfortably in bed. Pt is anxious about being in the hospital and getting insulin shots because she afraid of needles. UA is positive for UTI. Will start rocephin. No other complaints. Review of Systems Unremarkable General: Unremarkable Eyes: Unremarkable ENT: Unremarkable Respiratory: Unremarkable Cardiovascular: Unremarkable Gastrointestinal: Unremarkable Genitourinary: Unremarkable Musculoskeletal: Unremarkable Integumentary: Unremarkable Neurological: Unremarkable Lymphatics: Unremarkable Physical Examination - Vital Signs Temperature: 98.7 F Blood Pressure: 123/80 Pulse: 93 Respirations: 20 Pulse Ox (%): 96 - Physical Exam General: Alert, In no apparent distress, Oriented x3 HEENT: Atraumatic, Normocephalic, PERRLA Neck: Supple, 2+ carotid pulse no bruit Respiratory: Clear to auscultation bilaterally, Normal air movement Cardiovascular: No edema, Normal pulses, Regular rate/rhythm, Normal S1 S2 Capillary refill: <2 Seconds Gastrointestinal: Normal bowel sounds, Soft and benign, Non-distended Musculoskeletal: No clubbing, No swelling Integumentary: No rashes, No breakdown Neurological: Normal speech, Normal strength at 5/5 x4 extr, Normal tone, Sensation intact, Cranial nerves 3-12 intact Lymphatics: No axilla or inguinal lymphadenopathy - Studies Laboratory Data (last 24 hrs) 11/22/23 11/22/23 18:10 18:10 WBC 11.90 H Hgb 15.5 H Hct 45.4 H Plt Count 221 Sodium 129 L Potassium 3.4 L BUN 21 H Creatinine 1.61 H Glucose 570 H* Total Bilirubin 1.0 AST 5 L ALT 16 Alkaline Phosphatase 142 H Lipase 25 Assessment And Plan - Plan Obstructive uropathy: Patient has significant bladder outlet obstruction likely due to a complication of prior cervical cancer. Placed a carreno catheter. Consulted Urology. Will monitor urine output. UTI: Will continue IVF, rocephin and follow up urine culture. Diabetes type 2: Uncontrolled. Will continue accuchek, SSI, lispro 6u TID, lantus 18u daily, and ADA diet. Will follo wup A1c. Pt is scared of needles. Will switch to metformin if A1c is <9. Hypokalemia: k is 3.4. Will replete and monitor. Hyponatremia: Na is 129. Likely due to hypovolemia. Will continue NS IVF and monitor Na. Acute kidney injury: Cr is 1.6. Will continue IVF, avoid nephrotoxins and monitor renal function. DVT Prophylaxis: Lovenox Code: Full code Disposition: Pending hospital course.
[2023-11-23] MEDS: CEFTRIAXONE 1,000 MG in NA CHLORIDE 0.9% 50 ML IVPB SCH (10:42)
[2023-11-23] MEDS: POTASSIUM CL SA 10 MEQ TAB PO ONE (10:42)
[2023-11-23] MEDS: INSULIN LISPRO 100 UNIT/ML SQ ONE ×2 (10:53→12:22)
[2023-11-23] MEDS: INSULIN LISPRO 100 UNIT/ML SQ SCH (12:00)
[2023-11-24 03:58] LABS: Hematocrit 39.5 % (36.0-45.0); MCV 86.7 fL (80-100); MPV 9.4 fL (7.6-11.3); Platelets 165 thou/uL (152-406); RBC Red Blood Cell Count 4.56 M/uL (3.86-4.86)
[2023-11-24 04:06] LABS: Potassium 2.7 mEq/L (3.5-5.1)
[2023-11-24] MEDS: INSULIN LISPRO 100 UNIT/ML SQ SCH (09:08)
[2023-11-24] MEDS: POTASSIUM CL 40 MEQ in NA CHLORIDE 0.9% 500 ML IV SCH (09:08)
[2023-11-24] MEDS: INSULIN GLARGINE 100 UNIT/ML SQ SCH (09:10)
--- NOTE | 2023-11-24 10:11 | P.PN ---
Subjective Date of Service: 11/24/23 Chief Complaint: Acute kidney injury, hyperglycemia, hydronephrosis. Pt is resting comfortably in bed. Pt is feeling better today. No anxiety. Her A1c is 13.5. No other complaints. Review of Systems Unremarkable General: Unremarkable Eyes: Unremarkable ENT: Unremarkable Respiratory: Unremarkable Cardiovascular: Unremarkable Gastrointestinal: Unremarkable Genitourinary: Unremarkable Musculoskeletal: Unremarkable Integumentary: Unremarkable Neurological: Unremarkable Lymphatics: Unremarkable Physical Examination - Vital Signs Temperature: 97.6 F Blood Pressure: 142/96 Pulse: 88 Respirations: 17 Pulse Ox (%): 99 - Physical Exam General: Alert, In no apparent distress, Oriented x3 HEENT: Atraumatic, Normocephalic, PERRLA Neck: Supple, 2+ carotid pulse no bruit Respiratory: Clear to auscultation bilaterally, Normal air movement Cardiovascular: No edema, Normal pulses, Regular rate/rhythm, Normal S1 S2 Capillary refill: <2 Seconds Gastrointestinal: Normal bowel sounds, Soft and benign, Non-distended Musculoskeletal: No clubbing, No swelling Integumentary: No rashes, No breakdown Neurological: Normal speech, Normal tone, Sensation intact, Cranial nerves 3-12 intact Lymphatics: No axilla or inguinal lymphadenopathy Assessment And Plan - Plan Obstructive uropathy: Patient has significant bladder outlet obstruction likely due to a complication of prior cervical cancer. Placed a carreno catheter. Consulted Urology. Will monitor urine output. UTI: Will continue IVF, rocephin and follow up urine culture. Diabetes type 2: Uncontrolled. Will continue accuchek, SSI, lispro 8u TID, lantus 24u daily, and ADA diet. A1c is 13.5. Pt will benefit from insulin. Hypokalemia: k is 3.4. Will replete and monitor. Hyponatremia: resolved. Na is 138 <- 129. Likely due to hypovolemia. Will continue NS IVF and monitor Na. Acute kidney injury: Cr is 0.72 <- 1.6. Will continue IVF, avoid nephrotoxins and monitor renal function. DVT Prophylaxis: Lovenox Code: Full code Disposition: Pending hospital course.
[2023-11-24] MEDS: ACETAMINOPHEN 325 MG TABLET PO PRN (11:20)
--- NOTE | 2023-11-24 19:00 | P.CNS ---
Date of Consult: 11/24/23 Reason for Consult: Bilateral hydronephrosis Requesting Physician: Adrián Jarrett Chief Complaint: Acute kidney injury, hyperglycemia, hydronephrosis. History of Present Illness: 53-year-old G4, P4 vaginal deliveries only woman with DM 2 and history of cervical cancer treated with chemo and radiation therapy both extracorporal and brachytherapy 10 to 11 years ago who presented via the emergency department with significant lethargy associated with nausea and vomiting. While she denies any vaginal bulging, she notes that for the last 4 to 5 months, she has had significant issues with urge incontinence requiring as many as 5-6 depends undergarments per day. About a week prior to her presentation to the emergency department, she had complete functional incontinence with loss of urine at rest or upon standing. She was going through even more depends undergarments at that time. Also, approximately 2 to 3 days prior to her admission, she developed severe left lower quadrant pain, which sounds like that mostly drove her visit to the emergency department. There in the emergency department imaging was performed identifying a distended bladder as well as bilateral hydronephrosis, and a urethral Magdaleno catheter was placed. She was since admitted to the hospital, and the creatinine on admission was apparently 1.6. Past medical history: As above Past surgical history: None Family history: No urologic malignancy Social history: 2 pack/day smoker for 30+ years Examination: Well-appearing, well-developed, well-nourished, no acute distress Alert, awake, oriented x 3 No dyspnea or sign of respiratory distress Comfortable and well-appearing Lying in the hospital bed Urethral Magdaleno catheter in place draining clear yellow urine Review of symptoms: She denies any neuropathic symptoms, specifically no numbness or tingling in her hands or feet, no dizziness, no accidental falls or trouble walking. 11/22/2023 WBC 11.9 that decreased to 8.0 and now 5.4 on 11/24/2022. Hemoglobin 15.5, platelets 221. Creatinine 1.6 that declined to 1.08 and now 0.72 after Magdaleno catheter placement. UA micro revealed trace leukocyte Estrace, 10-20 WBCs per hpf, > 50 RBCs per hpf. Urine culture > 100 K mixed valentina Assessment and recommendation: 53-year-old G4, P4 vaginal deliveries only woman with DM 2 and history of cervical cancer treated with chemo and radiation therapy both extracorporal and brachytherapy 10 to 11 years ago with longstanding urge and functional incontinence, likely secondary to overflow, with bilateral hydronephrosis and GUILHERME that rapidly improved with Magdaleno catheter placement. -Renal ultrasound to confirm resolution of hydronephrosis -I counseled patient on the need for outpatient evaluation to include the followin) cystoscopy and pelvic exam 2) urodynamics evaluation -We will leave the urethral Magdaleno catheter for at least 14 days, and following the cystoscopy, she will be given a voiding trial. Allergies No Known Allergies Allergy (Unverified 02/25/18 18:34) - Past Medical/Surgical History Diabetic: Yes -: History of cervical cancer. -: diabetes -: Biopsy of Cervix - Family History Mother Medical History: Diabetes - Social History Smoking Status: Current every day smoker Alcohol use: No Place of Residence: Home Physical Examination Temp Pulse Resp BP Pulse Ox 97.8 F 93 H 16 144/97 H 97 11/24/23 16:00 11/24/23 16:00 11/24/23 16:00 11/24/23 16:00 11/24/23 16:00 General: Alert, In no apparent distress, Oriented x3 HEENT: Atraumatic, Normocephalic, PERRLA, Mucous membr. moist/pink Respiratory: Normal air movement Neurological: Normal speech Urinary: Magdaleno catheter - Problems (1) Overflow incontinence of urine Current Visit: Yes Status: Acute (2) History of radiation therapy Current Visit: Yes Status: Acute (3) Bilateral hydronephrosis Current Visit: Yes Status: Acute Critical Care: No Time Spent Managing Pts care (In Minutes): 45
[2023-11-24 21:54] VITALS: O2SAT 99
[2023-11-25 03:26] LABS: Absolute Lymphocytes (CBC) 1.5 K/uL (0.7-4.9); Lymphocytes % 22.2 % (15.3-44.8); MCV 86.3 fL (80-100); MPV 9.5 fL (7.6-11.3); Platelets 174 thou/uL (152-406); RBC Red Blood Cell Count 4.64 M/uL (3.86-4.86)
[2023-11-25 03:34] LABS: Potassium 2.9 mEq/L (3.5-5.1)
[2023-11-25] MEDS: KCL 20 MEQ/100 mL IVPB 20 MEQ/100 ML BAG IV SCH (05:40)
[2023-11-25 05:51] LABS: Magnesium 1.1 mg/dL (1.6-2.4)
[2023-11-25] MEDS ORDERED: NA CHLORIDE 0.9% IV SCH (06:49)
[2023-11-25] MEDS ORDERED: MAGNESIUM IV SCH (06:49)
[2023-11-25] MEDS ORDERED: POTASSIUM CL 40 MEQ in NA CHLORIDE 0.9% 500 ML IV SCH (07:00)
[2023-11-25] MEDS: MAGNESIUM SULFATE 1 gm IVPB 1 GM/100 ML BAG IV SCH (07:59)
[2023-11-25 08:42] VITALS: BP 149/100; TEMP 98.1
[2023-11-25] MEDS ORDERED: Magnesium Sulfate 2gm IVPB 2 G/50 ML BAG IV ONE (09:00)
--- NOTE | 2023-11-25 11:46 | P.DS ---
Admission Date: 11/22/23 Discharge Date: 11/25/23 Disposition: AMA-LEFT AGAINST MEDICAL ADVIC Discharge Condition: FAIR Reason for Admission: Acute kidney injury, hyperglycemia, hydronephrosis. Brief History of Present Illness: 53-year-old female patient with medical history significant for history of cervical cancer who was evaluated for episode of lethargy and found to have urinary obstruction. Imaging showed distended bladder and bilateral hydronephrosis and patient was discussed with outlying urology who recommended inpatient care and no transfer to higher level of care. A Magdaleno catheter was placed for drainage of obstruction of the bladder and patient was admitted to the hospital for further management. Labs done in the ED was concerning for creatinine of 1.6. Hospital Course: Pt is a 53yo female with past medical history of cervical cancer who was evaluated for episode of lethargy and found to have urinary obstruction. Imaging showed distended bladder and bilateral hydronephrosis and patient was discussed with the Urologist who recommended inpatient care and no transfer to higher level of care. A Magdaleno catheter was placed for drainage of obstruction of the bladder and patient was admitted to the hospital for further management. Labs showed creatinine of 1.6 and evidence of UTI. We gave rocephin for UTI and followed urine cx. She was hyperglycemic and we optimized insulin regimen with lantus 24u QHS and lispro 8u with meal. A1c is 13.5. Pt will benefit from insulin. GUILHERME resolved with IVF and we repleted electrolytes. Pt left AMA on 11/25/23. Vital Signs/Physical Exam: Temp Pulse Resp BP Pulse Ox 98.1 F 99 H 17 149/100 H 97 11/25/23 08:00 11/25/23 08:00 11/25/23 08:00 11/25/23 08:00 11/25/23 08:00 Laboratory Data at Discharge: WBC 6.90 thou/uL (4.3-10.9) 11/25/23 02:48 Hgb 13.8 g/dL (12.0-15.0) 11/25/23 02:48 Hct 40.0 % (36.0-45.0) 11/25/23 02:48 Plt Count 174 thou/uL (152-406) 11/25/23 02:48 Sodium 140 mEq/L (136-145) 11/25/23 02:48 Potassium 2.9 mEq/L (3.5-5.1) L 11/25/23 02:48 BUN 10 mg/dL (7-18) 11/25/23 02:48 Creatinine 0.68 mg/dL (0.55-1.02) 11/25/23 02:48 Glucose 169 mg/dL (74-106) H 11/25/23 02:48 Magnesium 1.1 mg/dL (1.6-2.4) L 11/25/23 02:48 Total Bilirubin 1.0 mg/dL (0.2-1.0) 11/22/23 18:10 AST 5 U/L (15-37) L 11/22/23 18:10 ALT 16 U/L (13-56) 11/22/23 18:10 Alkaline Phosphatase 142 U/L (45-117) H 11/22/23 18:10 Lipase 25 U/L (13-75) 11/22/23 18:10 Followup: NONE,NONE [Primary Care Provider] -
== END 2023-11-25 10:12 | disposition left against medical advice (07) | DRG 690 ==
LOC: ER 17:56 → 2ND 21:26
PROVIDERS: ADMIT Internal Medicine Nephrology; ATTEND Hospitalist
PROC: 0T9B70Z Drainage of Bladder with Drainage Device, Via Natural or Artificial Opening (ICD-10-PCS; principal; 2023-11-22)
DX: N13.6 Pyonephrosis (principal); E87.1 Hypo-osmolality and hyponatremia; N17.9 Acute kidney failure, unspecified; F41.9 Anxiety disorder, unspecified; E87.6 Hypokalemia; E11.65 Type 2 diabetes mellitus with hyperglycemia; N39.490 Overflow incontinence; F17.210 Nicotine dependence, cigarettes, uncomplicated; Z92.3 Personal history of irradiation; Z92.21 Personal history of antineoplastic chemotherapy; Z85.41 Personal history of malignant neoplasm of cervix uteri; Z53.29 Procedure and treatment not carried out because of patient's decision for other reasons
CPT/HCPCS: 36415; 51702; 74176; 80048; 80053; 81001; 82947; 83036; 83690; 83735; 85025; 87077; 87086; 87088; 87186; 96361; 96372; 96374; 96375; 99285; J0696; J1650; J1815; J2405; J3475; J3480; J7030; J7040

== ENCOUNTER 2024-01-07 10:40 | Emergency (ER) | payer BC, SELFPAY ==
[2024-01-07 12:24] LABS: Specific Gravity > 1.030 (1.005-1.030); Sqamous Epithelial <5 /HPF (None Seen); Urine Bacteria <20 /HPF (<20); Urine Bilirubin NEGATIVE (Negative); Urine Blood Negative (Negative); Urine Clarity Clear (Clear); Urine Color Colorless (Yellow); Urine Culture Reflex Order NOT NEEDED; Urine Glucose 4+ (Over) (Negative); Urine Ketones NEGATIVE (Negative); Urine Micro Reflex YN NO BILL MICROSCOPIC; Urine Mucus Slight /HPF (None Seen); Urine Nitrite NEGATIVE (Negative); Urine Protein NEGATIVE (Negative); Urine Urobilinogen Normal (Normal); Urine WBC None Seen /HPF (<5); Urine pH 6.5 (5.0-7.0)
--- NOTE | 2024-01-07 13:00 | ER ---
Nurse's Notes [facility] Name: Shannon Gill Age: 53 yrs Sex: Female : 1970 Arrival Date: 01/07/2024 Time: 10:40 Bed 17 Private MD: Diagnosis: Mechanical complication of urinary (indwelling) catheter Presentation: 01/06 10:45 Chief complaint: Patient states: urinary catheter is leaking and needs to be changed. ko1 Coronavirus screen: At this time, the client does not indicate any symptoms associated with coronavirus-19. Ebola Screen: No symptoms or risks identified at this time. Initial Sepsis Screen: Does the patient meet any 2 criteria? No. Patient's initial sepsis screen is negative. Does the patient have a suspected source of infection? No. Patient's initial sepsis screen is negative. Risk Assessment: Do you want to hurt yourself or someone else? Patient reports no desire to harm self or others. Onset of symptoms was January 07, 2024. 10:45 Method Of Arrival: Ambulatory ko1 10:45 Acuity: JOSSY 4 ko1 Triage Assessment: 10:49 General: Appears in no apparent distress. Behavior is appropriate for age, anxious. ko1 Pain: Denies pain. 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 - Social history:: Smoking status: Patient reports the use of cigarette tobacco products, denies chronic smoking, but will smoke occasionally. - Family history:: not pertinent. Screenin:17 [facility] ED Fall Risk Assessment (Adult) History of falling in the last 3 months, kd3 including since admission No falls in past 3 months (0 pts) Confusion or Disorientation No (0 pts) Intoxicated or Sedated No (0 pts) Impaired Gait No (0 pts) Mobility Assist Device Used No (0 pt) Altered Elimination No (0 pt) Score/Fall Risk Level 0 - 2 = Low Risk Oriented to surroundings. Abuse screen: Denies threats or abuse. Denies injuries from another. Nutritional screening: No deficits noted. Tuberculosis screening: No symptoms or risk factors identified. Assessment: 10:52 General: Appears in no apparent distress. comfortable, Behavior is calm, cooperative. rs5 10:52 Pain: Denies pain. Neuro: Level of Consciousness is Oriented to. Cardiovascular: rs5 Patient's skin is warm and dry. Rhythm is regular. Respiratory: Airway is patent Respiratory effort is even, unlabored, Respiratory pattern is regular, symmetrical. GI: Abdomen is round non-distended, Abd is soft and non tender X 4 quads. : Reports "I've this catheter in for one month now and I think I need a new one because when I pee it leeks outside the catheter" provider notified. EENT: No signs and/or symptoms were reported regarding the EENT system. Derm: Skin is intact, Skin is pink, warm \\T\\ dry. Musculoskeletal: Circulation, motion, and sensation intact. Range of motion: intact in all extremities. 10:52 Reassessment: pt has a urinary catheter in place draining to gravity. Cloudy urine rs5 100cc noted in urine bag. . 11:22 Reassessment: To bedside, urinary catheter bag removed and 16 ff catheter inserted rs5 using sterile technique, 300 cc clear yellow urine noted in urine bag. Urine sample obtained and sent to lab. pt tolerated procedure well, denies pain. 11:30 Reassessment: urinary bag switched to leg bag, 300 clear yellow urine emptied from bag. rs5 12:20 Reassessment: Patient and/or family updated on plan of care and expected duration. Pain rs5 level reassessed. Patient is alert, oriented x 3, equal unlabored respirations, skin warm/dry/pink. 13:07 Reassessment: No changes from previously documented assessment. rs5 Vital Signs: 10:45 BP 125 / 99; Pulse 96; Resp 18; Temp 98.7; Pulse Ox 98% ; ko1 13:18 BP 136 / 87; Pulse 89; Resp 17; Pulse Ox 98% on R/A; kd3 ED Course: 10:42 Patient arrived in ED. mr 10:44 Raffaele Estrada MD is Attending Physician. rt 10:49 Triage completed. ko1 10:49 Arm band placed on right wrist. Patient placed in an exam room, on a stretcher, on ko1 pulse oximetry. 11:02 Martinez, Thompson, RN is Primary Nurse. rs5 11:50 Magdaleno cath inserted, using sterile technique, 16 Fr., by me, balloon inflated, to iw gravity drainage, returned clear yellow urine. Patient tolerated well. 13:17 No provider procedures requiring assistance completed. Patient did not have IV access kd3 during this emergency room visit. 13:18 Patient has correct armband on for positive identification. Provided Education on: kd3 Magdaleno care . Administered Medications: No medications were administered Medication: 13:18 VIS not applicable for this client. kd3 Outcome: 12:59 Discharge ordered by . rt 13:17 Discharged to home ambulatory, kd3 13:17 Condition: stable 13:17 Discharge instructions given to patient, Instructed on discharge instructions, follow up and referral plans. Demonstrated understanding of instructions, follow-up care, 13:19 Patient left the ED. kd3 Signatures: Pepper Trujillo, Reg Reg Maria Wagner, RN MATT iw Eunice Pratt RN RN kd3 Ashley Lancaster RN RN ko1 Raffaele Estrada MD MD rt Thompson Martinez, MATT RN rs5
--- NOTE | 2024-01-07 13:01 | EDPHYS ---
Physician Documentation [facility] Name: Shannon Gill Age: 53 yrs Sex: Female : 1970 Arrival Date: 01/07/2024 Time: 10:40 Bed 17 Private MD: ED Physician Raffaele Estrada HPI: 01/06 14:22 This 53 yrs old Female presents to ER via Ambulatory with complaints of Needs rt Urinary Catheter Replacement. 14:22 Patient presents to the ED requesting urinary catheter replacement. Her current rt catheter has been in for about 1 month. Reports that there is debris in the catheter tubing and that it is leaking at the tube insertion site. Denies pain, other acute complaints, states that she feels well. Denies other acute complaints, symptoms are mild in severity, no other aggravating or alleviating factors.. 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 - Social history:: Smoking status: Patient reports the use of cigarette tobacco products, denies chronic smoking, but will smoke occasionally. - Family history:: not pertinent. ROS: 14:22 Constitutional: Negative for fever, chills, and weight loss, Cardiovascular: Negative rt for chest pain, palpitations, and edema, Respiratory: Negative for shortness of breath, cough, wheezing, and pleuritic chest pain, Abdomen/GI: Negative for abdominal pain, nausea, vomiting, diarrhea, and constipation, : Negative for injury, bleeding, discharge, and swelling, Neuro: Negative for headache, weakness, numbness, tingling, and seizure, Psych: Negative for depression, anxiety, suicide ideation, homicidal ideation, and hallucinations, Exam: 14:22 Constitutional: This is a well developed, well nourished patient who is awake, alert, rt and in no acute distress. Head/Face: Normocephalic, atraumatic. Chest/axilla: Normal chest wall appearance and motion. Nontender with no deformity. No lesions are appreciated. Cardiovascular: Regular rate and rhythm with a normal S1 and S2. No gallops, murmurs, or rubs. Normal PMI, no JVD. No pulse deficits. Respiratory: Lungs have equal breath sounds bilaterally, clear to auscultation and percussion. No rales, rhonchi or wheezes noted. No increased work of breathing, no retractions or nasal flaring. Abdomen/GI: Soft, non-tender, with normal bowel sounds. No distension or tympany. No guarding or rebound. No evidence of tenderness throughout. Skin: Warm, dry with normal turgor. Normal color with no rashes, no lesions, and no evidence of cellulitis. MS/ Extremity: Pulses equal, no cyanosis. Neurovascular intact. Full, normal range of motion. Neuro: Awake and alert, GCS 15, oriented to person, place, time, and situation. Cranial nerves II-XII grossly intact. Motor strength 5/5 in all extremities. Sensory grossly intact. Cerebellar exam normal. Normal gait. Vital Signs: 10:45 BP 125 / 99; Pulse 96; Resp 18; Temp 98.7; Pulse Ox 98% ; ko1 13:18 BP 136 / 87; Pulse 89; Resp 17; Pulse Ox 98% on R/A; kd3 MDM: 11:11 Patient medically screened. rt 14:22 Differential Diagnosis UTI, mechanical complication. Data reviewed: vital signs, nurses rt notes, lab test result(s). Care significantly affected by the following chronic conditions: Diabetes. Counseling: I had a detailed discussion with the patient and/or guardian regarding the historical points, exam findings, and any diagnostic results supporting the discharge/admit diagnosis, the need for outpatient follow up, to return to the emergency department if symptoms worsen or persist or if there are any questions or concerns that arise at home. 01/06 11:22 Order name: UAM; Complete Time: 12:35 rt 01/06 11:22 Order name: Magdaleno; Complete Time: 12:00 rt 01/06 12:57 Order name: Leg Bag; Complete Time: 13:02 rt Administered Medications: No medications were administered Disposition Summary: 01/07/24 12:59 Discharge Ordered Notes: Location: Home rt Problem: new rt Symptoms: have improved rt Condition: Stable rt Diagnosis - Mechanical complication of urinary (indwelling) catheter rt Followup: rt - With: Private Physician - When: 2 - 3 days - Reason: Discharge Instructions: - Discharge Summary Sheet rt - Indwelling Urinary Catheter Care, Adult rt Forms: - Medication Reconciliation Form rt - Thank You Letter rt - Antibiotic Education rt - Prescription Opioid Use rt - Patient Portal Instructions rt - Leadership Thank You Letter rt Signatures: Dispatcher [employer] Ashley Abraham, RN RN ko1 Raffaele Estrada MD MD rt
[2024-01-07 13:48] VITALS: BP 136/87; TEMP 98.7; O2SAT 98
== END 2024-01-07 13:19 | disposition home or self-care (01) ==
LOC: ER 10:40
DX: T83.098A Other mechanical complication of other urinary catheter, initial encounter (principal)
CPT/HCPCS: 51702; 81001; 99284

== ENCOUNTER 2024-02-22 13:28 | Emergency (ER) | payer BC, MEDICARE, OTHER, SELFPAY ==
--- NOTE | 2024-02-22 14:12 | EDPHYS ---
Physician Documentation [facility] Name: Shannon Gill Age: 53 yrs Sex: Female : 1970 Arrival Date: 02/22/2024 Time: 13:28 Bed 10 Private MD: ED Physician Thien Taylor HPI: 02/21 13:50 This 53 yrs old Female presents to ER via Ambulatory with complaints of Needs jh7 Urinary Catheter Replacement. 13:50 53-year-old female reports that she needs her Carreno bag changed because there is a hole jh7 in the bag. Denies dysuria, hematuria, or any other issues with the Carreno. Reports that she is trying to get a primary care doctor so that she can follow-up with urology. She states that she has a catheter due to a history of urinary retention.. Historical: - Allergies: 13:51 No Known Allergies; ph - PMHx: 13:51 cervical cancer; diabetes mellitus; ph - Immunization history:: Adult Immunizations unknown. - Infectious Disease History:: Denies. - Social history:: Smoking status: Patient denies any tobacco usage or history of. ROS: 13:50 Constitutional: Per HPI jh7 Exam: 13:50 Constitutional: This is a well developed, well nourished patient who is awake, alert, jh7 and in no acute distress. Cardiovascular: Regular rate and rhythm with a normal S1 and S2. No gallops, murmurs, or rubs. Normal PMI, no JVD. No pulse deficits. Respiratory: Lungs have equal breath sounds bilaterally, clear to auscultation and percussion. No rales, rhonchi or wheezes noted. No increased work of breathing, no retractions or nasal flaring. Abdomen/GI: Soft, non-tender, with normal bowel sounds. No distension or tympany. No guarding or rebound. No evidence of tenderness throughout. Skin: Warm, dry with normal turgor. Normal color with no rashes, no lesions, and no evidence of cellulitis. MS/ Extremity: Pulses equal, no cyanosis. Neurovascular intact. Full, normal range of motion. Neuro: Awake and alert, GCS 15, oriented to person, place, time, and situation. Cranial nerves II-XII grossly intact. Motor strength 5/5 in all extremities. Sensory grossly intact. Cerebellar exam normal. Normal gait. 13:50 : CVA tenderness, is absent, a carreno is noted, to gravity drainage, Vital Signs: 13:50 BP 137 / 87; Pulse 81; Resp 18; Temp 98; Pulse Ox 98% on R/A; ph MDM: 13:31 Patient medically screened. [facility] 14:12 Differential diagnosis: Indwelling catheter malfunction. Data reviewed: vital signs, [facility] nurses notes. Care significantly affected by the following chronic conditions: Diabetes. Counseling: I had a detailed discussion with the patient and/or guardian regarding the historical points, exam findings, and any diagnostic results supporting the discharge/admit diagnosis, the need for outpatient follow up, a urologist, to return to the emergency department if symptoms worsen or persist or if there are any questions or concerns that arise at home. Response to treatment: the patient's symptoms have resolved after treatment, Carreno bag replaced with no leakage.. 02/21 13:45 Order name: [facility]. Order: change carreno bag; Complete Time: 14:28 [facility] Administered Medications: No medications were administered Disposition: 18:16 I was immediately available on-site in the Emergency Department for consultation in the ia3 care of the patient. Disposition Summary: 02/22/24 14:11 Discharge Ordered Notes: Location: Home [facility] Problem: new [facility] Symptoms: are resolved [facility] Condition: Stable [facility] Diagnosis - Mechanical complication of urinary (indwelling) catheter [facility] Followup: [facility] - With: Private Physician - When: 2 - 3 days - Reason: Recheck today's complaints Discharge Instructions: - Discharge Summary Sheet [facility] - Indwelling Urinary Catheter Care, Adult [facility] Forms: - Medication Reconciliation Form [facility] - Patient Portal Instructions [facility] - Leadership Thank You Letter [facility] Signatures: Navya Torrez, RN RN ph Thien Taylor DO DO ia3 Nellie Duong FNP FNP [facility]
--- NOTE | 2024-02-22 14:12 | ER ---
Nurse's Notes [facility] Name: Shannon Gill Age: 53 yrs Sex: Female : 1970 Arrival Date: 02/22/2024 Time: 13:28 Bed 10 Private MD: Diagnosis: Mechanical complication of urinary (indwelling) catheter Presentation: 02/21 13:50 Chief complaint: Patient states: Needs a new drainage bag for Magdaleno, current bag has a ph hole in it. Coronavirus screen: Vaccine status: Patient reports receiving the 1st dose of the Covid vaccine. Ebola Screen: No symptoms or risks identified at this time. Initial Sepsis Screen: Does the patient meet any 2 criteria? No. Patient's initial sepsis screen is negative. Does the patient have a suspected source of infection? No. Patient's initial sepsis screen is negative. Risk Assessment: Do you want to hurt yourself or someone else? Patient reports no desire to harm self or others. Onset of symptoms was February 22, 2024. 13:50 Method Of Arrival: Ambulatory ph 13:50 Acuity: JOSSY 4 ph Triage Assessment: 13:51 General: Appears in no apparent distress. Behavior is calm, cooperative, Denies fever, ph feeling ill. Pain: Denies pain. Neuro: Level of Consciousness is awake, alert, obeys commands, Oriented to person, place, time, situation. : Magdaleno in place to gravity drainage Urine is clear. Historical: - Allergies: 13:51 No Known Allergies; ph - PMHx: 13:51 cervical cancer; diabetes mellitus; ph - Immunization history:: Adult Immunizations unknown. - Infectious Disease History:: Denies. - Social history:: Smoking status: Patient denies any tobacco usage or history of. Screenin:52 [facility] ED Fall Risk Assessment (Adult) History of falling in the last 3 months, ph including since admission No falls in past 3 months (0 pts) Confusion or Disorientation No (0 pts) Intoxicated or Sedated No (0 pts) Impaired Gait No (0 pts) Mobility Assist Device Used No (0 pt) Altered Elimination Yes (1 pt) Score/Fall Risk Level 0 - 2 = Low Risk Oriented to surroundings, Maintained a safe environment, Hourly rounding (assess needs \T\ fall precautionary measures) done. Abuse screen: Denies threats or abuse. Denies injuries from another. Nutritional screening: No deficits noted. Tuberculosis screening: No symptoms or risk factors identified. Vital Signs: 13:50 BP 137 / 87; Pulse 81; Resp 18; Temp 98; Pulse Ox 98% on R/A; ph ED Course: 13:30 Patient arrived in ED. mr 13:31 Nellie Duong FNP [facility] 13:31 Thien Taylor DO is Attending Physician. [facility] 13:45 Navya Torrez, RN is Primary Nurse. ph 13:51 Triage completed. ph 13:52 Arm band placed on Patient placed in an exam room, on a stretcher. ph 13:52 Patient has correct armband on for positive identification. Bed in low position. Call ph light in reach. Side rails up X 1. Door closed. Noise minimized. 14:28 No provider procedures requiring assistance completed. Patient did not have IV access ph during this emergency room visit. Administered Medications: No medications were administered Medication: 13:52 VIS not applicable for this client. ph Outcome: 14:11 Discharge ordered by MD. ovalles 14:28 Discharged to home ambulatory, with family, ph 14:28 Condition: good 14:28 Discharge instructions given to patient, Instructed on discharge instructions, follow up and referral plans. Demonstrated understanding of instructions, follow-up care, 14:29 Patient left the ED. ph Signatures: Pepper Trujillo, Massimo Reg Navya Torrez, RN RN Nellie Duong FNP ASSOCIATE PRODUCT INTEGRITY ENGINEER [facility]
[2024-02-22 14:41] VITALS: BP 137/87; TEMP 98; O2SAT 98
== END 2024-02-22 14:29 | disposition home or self-care (01) ==
LOC: ER 13:28
DX: T83.098A Other mechanical complication of other urinary catheter, initial encounter (principal)
CPT/HCPCS: 99282

== ENCOUNTER 2024-03-31 20:54 | Emergency (ER) | payer OTHER ==
--- NOTE | 2024-03-31 22:20 | EDPHYS ---
Physician Documentation [facility] Name: Shannon Gill Age: 54 yrs Sex: Female : 1970 Arrival Date: 03/31/2024 Time: 20:54 Bed 5 Private MD: ED Physician Hoang Holloway HPI: 03/31 21:35 This 54 yrs old Female presents to ER via Ambulatory with complaints of cp Problem With Urinary Catheter. 21:35 Patient is a 54-year-old female who presents to the emergency department requesting cp replacement of her Carreno catheter. Patient reports noticing leakage at the site where the Carreno connects to the bag. No other complaints. 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 - Infectious Disease History:: Denies. - Social history:: Smoking status: Patient reports the use of cigarette tobacco products, smokes one-half pack cigarettes per day, Patient/guardian denies using alcohol, street drugs. ROS: 21:40 Constitutional: HX per HPI cp Exam: 21:45 Constitutional: The patient appears in no acute distress, alert, awake, comfortable, cp non-toxic, well developed, well nourished, 21:45 Head/Face: Normocephalic, atraumatic. cp 21:45 Chest/axilla: Inspection: normal, 21:45 Cardiovascular: Rate: normal, 21:45 Respiratory: the patient does not display signs of respiratory distress, Respirations: normal, no use of accessory muscles, no retractions, labored breathing, is not present, 21:45 Abdomen/GI: Exam negative for discomfort, distension, guarding, 21:45 Neuro: Orientation: to person, place \T\ time. Mentation: is normal, Vital Signs: 21:04 BP 118 / 93; Pulse 92; Resp 16 S; Temp 97.3(TE); Pulse Ox 99% on R/A; Weight 54.43 kg lg3 (R); Height 5 ft. 4 in. (R); 22:29 BP 121 / 92; Pulse 94; Resp 18; Temp 97.3(TE); Pulse Ox 99% on R/A; Pain 0/10; tm6 21:04 Body Mass Index 20.60 (54.43 kg, 162.56 cm) lg3 22:29 Pain Scale: Adult tm6 MDM: 21:09 Patient medically screened. cp 22:20 Data reviewed: vital signs, nurses notes, and as a result, I will discharge patient. cp 22:20 Counseling: I had a detailed discussion with the patient and/or guardian regarding the cp historical points, exam findings, and any diagnostic results supporting the discharge/admit diagnosis, to return to the emergency department if symptoms worsen or persist or if there are any questions or concerns that arise at home. Response to treatment: the patient's symptoms have resolved after treatment, and as a result, I will discharge patient. 03/31 21:31 Order name: Carreno: please replace carreno catheter; Complete Time: 22:13 cp Administered Medications: No medications were administered Disposition Summary: 03/31/24 22:20 Discharge Ordered Notes: Location: Home cp Problem: an ongoing problem cp Symptoms: have improved cp Condition: Stable cp Diagnosis - Leakage of urinary (indwelling) catheter cp Followup: cp - With: Private Physician - When: 2 - 3 days - Reason: Worsening of condition Discharge Instructions: - Discharge Summary Sheet cp - Indwelling Urinary Catheter Care, Adult cp Forms: - Medication Reconciliation Form cp - Antibiotic Education cp - Prescription Opioid Use cp - Patient Portal Instructions cp - Leadership Thank You Letter cp Addendum: 04/02/2024 07:21 Co-signature as Attending Physician, Hoang Holloway MD I agree with the assessment s p4 and plan of care. I reviewed the patient's care provided by the Advanced Practice Provider and agree with the diagnosis and treatment plan. Signatures: Raciel Crystal PA PA cp Able, Lacie, RN RN lg3 Hoang Holloway MD MD sp4 Corrections: (The following items were deleted from the chart) 04/01 22:11 22:10 Constitutional: HX per HPI cp cp
--- NOTE | 2024-03-31 22:20 | ER ---
Nurse's Notes [facility] Name: Shannon Gill Age: 54 yrs Sex: Female : 1970 Arrival Date: 03/31/2024 Time: 20:54 Bed 5 Private MD: Diagnosis: Leakage of urinary (indwelling) catheter Presentation: 03/31 21:04 Chief complaint: Patient states: i need a new Carreno bag. mine is not connecting and had lg3 a hole in the tube. Coronavirus screen: Client denies travel out of the [place] in the last 14 days. At this time, the client does not indicate any symptoms associated with coronavirus-19. Ebola Screen: No symptoms or risks identified at this time. Initial Sepsis Screen: Does the patient meet any 2 criteria? No. Patient's initial sepsis screen is negative. Does the patient have a suspected source of infection? No. Patient's initial sepsis screen is negative. Risk Assessment: Do you want to hurt yourself or someone else? Patient reports no desire to harm self or others. Onset of symptoms is unknown. 21:04 Method Of Arrival: Ambulatory lg3 21:04 Acuity: JOSSY 4 lg3 Triage Assessment: 21:05 General: Appears in no apparent distress. comfortable, Behavior is calm, cooperative. lg3 Pain: Denies pain. EENT: No deficits noted. No signs and/or symptoms were reported regarding the EENT system. Neuro: No deficits noted. Palma Agitation-Sedation Scale (RASS): 0 - Alert and Calm Level of Consciousness is awake, alert, obeys commands, Oriented to person, place, time, situation. Cardiovascular: No deficits noted. Denies chest pain, shortness of breath, Capillary refill < 3 seconds Clubbing of nail beds is absent JVD is absent Patient's skin is warm and dry. Respiratory: No deficits noted. Airway is patent Respiratory effort is even, unlabored, Respiratory pattern is regular, symmetrical. GI: No deficits noted. No signs and/or symptoms were reported involving the gastrointestinal system. : Carreno in place to gravity drainage Urine is cloudy. Derm: No deficits noted. No signs and/or symptoms reported regarding the dermatologic system. Skin is intact, is healthy with good turgor, Skin is dry, Skin is normal, Skin temperature is warm. Musculoskeletal: No deficits noted. No signs and/or symptoms reported regarding the musculoskeletal system. Circulation, motion, and sensation intact. Range of motion: intact in all extremities. 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 - Infectious Disease History:: Denies. - Social history:: Smoking status: Patient reports the use of cigarette tobacco products, smokes one-half pack cigarettes per day, Patient/guardian denies using alcohol, street drugs. Screenin:30 [facility] ED Fall Risk Assessment (Adult) History of falling in the last 3 months, tm6 including since admission No falls in past 3 months (0 pts) Confusion or Disorientation No (0 pts) Intoxicated or Sedated No (0 pts) Impaired Gait No (0 pts) Mobility Assist Device Used No (0 pt) Altered Elimination Yes (1 pt) Score/Fall Risk Level 0 - 2 = Low Risk Oriented to surroundings, Maintained a safe environment, Educated pt \T\ family on fall prevention, incl call for assistance when getting out of bed. Abuse screen: Denies threats or abuse. Denies injuries from another. Nutritional screening: No deficits noted. Tuberculosis screening: No symptoms or risk factors identified. Assessment: 21:30 General: Appears in no apparent distress. Behavior is calm, cooperative. Pain: Denies tm6 pain. Neuro: Level of Consciousness is awake, alert, obeys commands, Oriented to person, place, time, situation. Cardiovascular: Patient's skin is warm and dry. Respiratory: Airway is patent Respiratory effort is even, unlabored, Respiratory pattern is regular, symmetrical. GI: No signs and/or symptoms were reported involving the gastrointestinal system. Abdomen is flat, non-distended. : Reports carreno leaking and uncomfortable. EENT: No signs and/or symptoms were reported regarding the EENT system. Derm: No signs and/or symptoms reported regarding the dermatologic system. Musculoskeletal: No signs and/or symptoms reported regarding the musculoskeletal system. 22:29 Reassessment: Patient and/or family updated on plan of care and expected duration. Pain tm6 level reassessed. Patient is alert, oriented x 3, equal unlabored respirations, skin warm/dry/pink. Vital Signs: 21:04 BP 118 / 93; Pulse 92; Resp 16 S; Temp 97.3(TE); Pulse Ox 99% on R/A; Weight 54.43 kg lg3 (R); Height 5 ft. 4 in. (R); 22:29 BP 121 / 92; Pulse 94; Resp 18; Temp 97.3(TE); Pulse Ox 99% on R/A; Pain 0/10; tm6 21:04 Body Mass Index 20.60 (54.43 kg, 162.56 cm) lg3 22:29 Pain Scale: Adult tm6 ED Course: 20:56 Patient arrived in ED. jj6 21:00 Raciel Crystal PA is PHCP. cp 21:00 Hoang Holloway MD is Attending Physician. cp 21:05 Triage completed. lg3 21:05 Arm band placed on right wrist. lg3 21:30 Patient has correct armband on for positive identification. Bed in low position. Call tm6 light in reach. Side rails up X 1. Provided Education on: need to follow up with urology and/or PCP. detention carreno use has risks of infection.. Client placed on continuous cardiac and pulse oximetry monitoring. NIBP monitoring applied. Pulse ox on. NIBP on. 21:37 Bronwyn Franco, RN is Primary Nurse. tm6 22:15 Carreno cath removed intact, balloon deflated. tm6 22:15 Carreno cath inserted, using sterile technique, 16 Fr., by wy, balloon inflated, to tm6 gravity drainage, returned clear yellow urine. Patient tolerated well. 22:29 No provider procedures requiring assistance completed. Patient did not have IV access tm6 during this emergency room visit. Administered Medications: No medications were administered Medication: 21:30 VIS not applicable for this client. tm6 Outcome: 22:20 Discharge ordered by . cp 22:29 Discharged to home ambulatory, tm6 22:29 Condition: stable 22:29 Discharge instructions given to patient, Instructed on discharge instructions, follow up and referral plans. carreno usage Demonstrated understanding of instructions, follow-up care, carreno usage 22:30 Patient left the ED. tm6 Signatures: Raciel Crystal PA PA cp Able, Lacie, RN RN lg3 Nellie Barakatj6 Bronwyn Franco, RN RN tm6
[2024-03-31 23:10] VITALS: BP 121/92; TEMP 97.3; O2SAT 99
== END 2024-03-31 22:30 | disposition home or self-care (01) ==
LOC: ER 20:54
DX: T83.038A Leakage of other urinary catheter, initial encounter (principal)
CPT/HCPCS: 51702; 99284

== ENCOUNTER 2024-06-15 11:20 | Emergency (ER) | payer OTHER ==
--- NOTE | 2024-06-15 11:32 | ER ---
Nurse's Notes [facility] Name: Shannon Gill Age: 54 yrs Sex: Female : 1970 Arrival Date: 06/15/2024 Time: 11:20 Bed 7 Private MD: Diagnosis: Mechanical complication of urinary (indwelling) catheter Presentation: 06/15 11:33 Chief complaint: Patient states: Pt states she woke up feeling wet and saw that her dd2 carreno had broken. Coronavirus screen: At this time, the client does not indicate any symptoms associated with coronavirus-19. Ebola Screen: No symptoms or risks identified at this time. Initial Sepsis Screen: Does the patient meet any 2 criteria? No. Patient's initial sepsis screen is negative. Does the patient have a suspected source of infection? No. Patient's initial sepsis screen is negative. Risk Assessment: Do you want to hurt yourself or someone else? Patient reports no desire to harm self or others. Onset of symptoms was June 15, 2024. 11:33 Method Of Arrival: Ambulatory dd2 11:33 Acuity: JOSSY 4 dd2 Triage Assessment: 11:33 General: Appears unkempt, Behavior is calm, cooperative, appropriate for age. Pain: dd2 Denies pain. EENT: No deficits noted. No signs and/or symptoms were reported regarding the EENT system. Neuro: No deficits noted. Cardiovascular: No deficits noted. Respiratory: No deficits noted. Airway is patent Respiratory effort is even, unlabored. GI: No deficits noted. No signs and/or symptoms were reported involving the gastrointestinal system. : Reports carreno tube broke from leg bag. Derm: No deficits noted. No signs and/or symptoms reported regarding the dermatologic system. Musculoskeletal: No deficits noted. No signs and/or symptoms reported regarding the musculoskeletal system. 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 - Infectious Disease History:: Denies. - Social history:: Smoking status: Patient denies any tobacco usage or history of. Screenin:36 [facility] ED Fall Risk Assessment (Adult) History of falling in the last 3 months, dd2 including since admission No falls in past 3 months (0 pts) Confusion or Disorientation No (0 pts) Intoxicated or Sedated No (0 pts) Impaired Gait No (0 pts) Mobility Assist Device Used No (0 pt) Altered Elimination No (0 pt) Score/Fall Risk Level 0 - 2 = Low Risk Oriented to surroundings, Maintained a safe environment, Hourly rounding (assess needs \T\ fall precautionary measures) done. Abuse screen: Denies threats or abuse. Nutritional screening: No deficits noted. Tuberculosis screening: No symptoms or risk factors identified. Assessment: 11:36 Reassessment: see triage for full assessment. D/C pending carreno placement. dd2 Vital Signs: 11:33 BP 144 / 94; Pulse 89; Resp 16; Temp 98.4; Pulse Ox 100% ; Weight 56.7 kg; Height 5 ft. dd2 4 in. ; 12:00 BP 115 / 90; Pulse 94; Resp 15; Temp 98.1; Pulse Ox 99% ; me1 11:33 Body Mass Index 21.46 (56.70 kg, 162.56 cm) dd2 ED Course: 11:22 Patient arrived in ED. im 11:25 Thien Taylor DO is Attending Physician. ms3 11:25 Patient Had to go get coffee after signing in. Gait steady. ll1 11:29 Arm band placed on Patient placed in an exam room, on a stretcher. ll1 11:33 BEVERLY BLANTON, RN is Primary Nurse. dd2 11:35 Triage completed. dd2 11:36 Patient has correct armband on for positive identification. Bed in low position. Call dd2 light in reach. Side rails up X 1. Provided Education on: call light, procedures. Client placed on continuous cardiac and pulse oximetry monitoring. NIBP monitoring applied. Door closed. 11:36 No provider procedures requiring assistance completed. Patient did not have IV access dd2 during this emergency room visit. 11:54 Carreno cath inserted, using sterile technique, 16 Fr., by sd, balloon inflated, to dd2 gravity drainage, other secured to leg with stat-lock. carreno leg bag attached. returned clear yellow urine. Patient tolerated well. Administered Medications: No medications were administered Medication: 11:36 VIS not applicable for this client. dd2 Outcome: 11:31 Discharge ordered by . ms3 12:25 Discharged to home ambulatory, me1 12:25 Condition: stable 12:25 Discharge instructions given to patient, Instructed on discharge instructions, follow up and referral plans. Demonstrated understanding of instructions, follow-up care, 12:26 Patient left the ED. me1 Signatures: Asmita Mcfarlane RN RN ll1 Thien Taylor DO DO ms3 Bev Powell Michelle, RN RN me1 BEVERLY BLANTON RN RN dd2
--- NOTE | 2024-06-15 12:27 | EDPHYS ---
Physician Documentation [facility] Name: Shannon Gill Age: 54 yrs Sex: Female : 1970 Arrival Date: 06/15/2024 Time: 11:20 Bed 7 Private MD: ED Physician Thien Taylor HPI: 06/15 11:32 This 54 yrs old Female presents to ER via Unassigned with complaints of ms3 Problem With Urinary Catheter. 11:32 54-year-old female with past medical history of cervical cancer, diabetes, urinary ms3 retention presents to the emergency department for urinary catheter bag leaking. Patient denies pain, fevers, chills, nausea, vomiting.. 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 - Infectious Disease History:: Denies. - Social history:: Smoking status: Patient denies any tobacco usage or history of. ROS: 11:32 Constitutional: Negative for fever, and chills. Neck: Negative for injury, pain, and ms3 swelling, Cardiovascular: Negative for chest pain, and palpitations. Respiratory: Negative for shortness of breath, cough, wheezing, and pleuritic chest pain, Abdomen/GI: Negative for abdominal pain, nausea, vomiting, diarrhea, and constipation, Skin: Negative for injury, rash, and discoloration, 11:32 : Positive for Magdaleno catheter bag leaking, Exam: 11:32 Constitutional: This is a well developed, well nourished patient who is awake, alert, ms3 and in no acute distress. Cardiovascular: Regular rate and rhythm with a normal S1 and S2. No gallops, murmurs, or rubs. Normal PMI, no JVD. No pulse deficits. Respiratory: Lungs have equal breath sounds bilaterally, clear to auscultation and percussion. No rales, rhonchi or wheezes noted. No increased work of breathing, no retractions or nasal flaring. Abdomen/GI: Soft, non-tender, with normal bowel sounds. No distension or tympany. No guarding or rebound. No evidence of tenderness throughout. Vital Signs: 11:33 BP 144 / 94; Pulse 89; Resp 16; Temp 98.4; Pulse Ox 100% ; Weight 56.7 kg; Height 5 ft. dd2 4 in. ; 12:00 BP 115 / 90; Pulse 94; Resp 15; Temp 98.1; Pulse Ox 99% ; me1 11:33 Body Mass Index 21.46 (56.70 kg, 162.56 cm) dd2 MDM: 11:31 Patient medically screened. ms3 11:32 Differential diagnosis: Magdaleno catheter complication. Data reviewed: vital signs, nurses ms3 notes, and as a result, I will discharge patient. Counseling: I had a detailed discussion with the patient and/or guardian regarding the historical points, exam findings, and any diagnostic results supporting the discharge/admit diagnosis, the need for outpatient follow up, to return to the emergency department if symptoms worsen or persist or if there are any questions or concerns that arise at home. Special discussion: I discussed with the patient/guardian in detail that at this point there is no indication for admission to the hospital. It is understood, however, that if the symptoms persist or worsen the patient needs to return immediately for re-evaluation. ED course: Discussed plan for changing of Magdaleno catheter with new bag with patient. Patient understands agrees with plan. All questions were answered. Return precautions discussed include worsening symptoms, or any other concerns. Patient to follow-up with primary care physician in 2 to 3 days for reevaluation.. 06/15 11:32 Order name: Magdaleno Leg Bag; Complete Time: 11:54 ms3 06/15 11:32 Order name: Magdaleno; Complete Time: 11:54 ms3 Administered Medications: No medications were administered Disposition: 18:59 Chart complete. ms3 Disposition Summary: 06/15/24 11:31 Discharge Ordered Notes: Location: Home ms3 Condition: Stable ms3 Diagnosis - Mechanical complication of urinary (indwelling) catheter ms3 Followup: ms3 - With: Private Physician - When: 2 - 3 days - Reason: Recheck today's complaints Discharge Instructions: - Discharge Summary Sheet ms3 - Indwelling Urinary Catheter Care, Adult, [id number] ms3 Forms: - Medication Reconciliation Form ms3 - Antibiotic Education ms3 - Prescription Opioid Use ms3 - Patient Portal Instructions ms3 - Leadership Thank You Letter ms3 Signatures: Asmita Mcfarlane, RN RN ll1 Thien Taylor DO DO ms3 BEVERLY BLANTON RN RN dd2
[2024-06-15 12:45] VITALS: BP 115/90; TEMP 98.1; O2SAT 99
== END 2024-06-15 12:26 | disposition home or self-care (01) ==
LOC: ER 11:20
DX: T83.038A Leakage of other urinary catheter, initial encounter (principal)
CPT/HCPCS: 51702; 99284

== ENCOUNTER 2024-08-09 05:18 | Emergency (ER) | payer OTHER ==
--- NOTE | 2024-08-09 05:33 | EDPHYS ---
Physician Documentation [facility] Name: Shannon Gill Age: 54 yrs Sex: Female : 1970 Arrival Date: 08/09/2024 Time: 05:18 Bed 8 Private MD: ED Physician Nikolay Gama HPI: 08/09 05:24 This 54 yrs old Female presents to ER via Unassigned with complaints of ec2 Problem With Urinary Catheter. 05:24 Patient arrives today d/t concern for carreno bag issues. Patient w/ indwelling carreno ec2 catheter, states that she accidentally punctured her carreno leg bag and needs a replacement. No other complaints. . 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 - Infectious Disease History:: Denies. - Social history:: Smoking status: Patient reports the use of cigarette tobacco products, 1 pack q3days. ROS: 05:25 Constitutional: as per hpi ec2 Exam: 05:25 Constitutional: GEN: NAD Head: atraumatic Eyes: EOMI Ears: External ears are ec2 normal. CV: regular rate LUNGS: no respiratory distress ABD: non-distended SKIN: no evidence of rashes MSK: no evidence of trauma Vital Signs: 05:36 BP 155 / 105; Pulse 99; Resp 16; Temp 97.8; Pulse Ox 100% ; Weight 56.7 kg; Height 5 vc1 ft. 2 in. ; Pain 0/10; 05:36 Body Mass Index 22.86 (56.70 kg, 157.48 cm) vc1 05:36 Pain Scale: Adult vc1 MDM: 05:22 Medical Screening Exam initiated ec2 05:26 Data reviewed: vital signs, nurses notes. ED course: Patient arrives today d/t concern ec2 for carreno leg bag issues. Exam reassuring. Will replace carreno leg bag and d/c to home. . 05:32 ED course: Carreno bag replaced w/ urine output, pt d/c to home, return precautions ec2 given. . 08/09 05:26 Order name: Carreno Leg Bag; Complete Time: 05:36 ec2 Administered Medications: No medications were administered Disposition Summary: 08/09/24 05:32 Discharge Ordered Notes: Location: Home ec2 Condition: Stable ec2 Diagnosis - Leakage of urinary (indwelling) catheter ec2 Followup: ec2 - With: Som Bean MD - When: - Reason: Recheck today's complaints Discharge Instructions: - Discharge Summary Sheet ec2 - Indwelling Urinary Catheter Care, Adult, [id number] ec2 Forms: - Medication Reconciliation Form ec2 - Antibiotic Education ec2 - Prescription Opioid Use ec2 - Patient Portal Instructions ec2 - Leadership Thank You Letter ec2 Signatures: Azul Jerome RN RN vc1 Nikolay Gama MD MD ec2
--- NOTE | 2024-08-09 05:47 | ER ---
Nurse's Notes [facility] Name: Shannon Gill Age: 54 yrs Sex: Female : 1970 Arrival Date: 08/09/2024 Time: 05:18 Bed 8 Private MD: Diagnosis: Leakage of urinary (indwelling) catheter Presentation: 08/09 05:36 Chief complaint: Patient states: My leg bag has a leak, I just need it changed so I can vc1 leave. Coronavirus screen: Client denies travel out of the [place] in the last 14 days. At this time, the client does not indicate any symptoms associated with coronavirus-19. Ebola Screen: Patient negative for fever greater than or equal to 101.5 degrees Fahrenheit, and additional compatible Ebola Virus Disease symptoms Patient denies exposure to infectious person. Patient denies travel to an Ebola-affected area in the 21 days before illness onset. No symptoms or risks identified at this time. Initial Sepsis Screen: Does the patient meet any 2 criteria? No. Patient's initial sepsis screen is negative. Does the patient have a suspected source of infection? No. Patient's initial sepsis screen is negative. Risk Assessment: Do you want to hurt yourself or someone else? Patient reports no desire to harm self or others. Onset of symptoms was August 09, 2024. Care prior to arrival: None. Activity prior to arrival: None. Mechanism of Injury: No Mechanism of Injury. Transition of care: patient was not received from another setting of care. 05:36 Method Of Arrival: Ambulatory vc1 05:36 Acuity: JOSSY 5 vc1 Triage Assessment: 05:40 General: Appears in no apparent distress. uncomfortable, slender, unkempt, Behavior is vc1 calm, cooperative, appropriate for age. Pain: Denies pain. EENT: No deficits noted. No signs and/or symptoms were reported regarding the EENT system. Neuro: Level of Consciousness is awake, alert, obeys commands, Oriented to person, place, time, situation, Appropriate for age. Cardiovascular: Heart tones S1 S2 present Capillary refill < 3 seconds Patient's skin is warm and dry. Respiratory: Airway is patent Respiratory effort is even, unlabored, Respiratory pattern is regular, symmetrical, Breath sounds are clear bilaterally. GI: Abdomen is flat, non-distended. : Reports Bladder full do to leg bag not emptying. Derm: Skin is intact, is healthy with good turgor, Skin is dry, Skin is normal, Skin temperature is warm. Musculoskeletal: Circulation, motion, and sensation intact. Range of motion: intact in all extremities. 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 - Infectious Disease History:: Denies. - Social history:: Smoking status: Patient reports the use of cigarette tobacco products, 1 pack q3days. Screenin:43 [facility] ED Fall Risk Assessment (Adult) History of falling in the last 3 months, vc1 including since admission No falls in past 3 months (0 pts) Confusion or Disorientation No (0 pts) Intoxicated or Sedated No (0 pts) Impaired Gait No (0 pts) Mobility Assist Device Used No (0 pt) Altered Elimination Yes (1 pt) Score/Fall Risk Level 0 - 2 = Low Risk Oriented to surroundings, Maintained a safe environment, Educated pt \T\ family on fall prevention, incl call for assistance when getting out of bed. Abuse screen: Denies threats or abuse. Nutritional screening: No deficits noted. Tuberculosis screening: No symptoms or risk factors identified. Assessment: 05:43 General: See triage assessment. vc1 Vital Signs: 05:36 BP 155 / 105; Pulse 99; Resp 16; Temp 97.8; Pulse Ox 100% ; Weight 56.7 kg; Height 5 vc1 ft. 2 in. ; Pain 0/10; 05:36 Body Mass Index 22.86 (56.70 kg, 157.48 cm) vc1 05:36 Pain Scale: Adult vc1 ED Course: 05:19 Patient arrived in ED. jj6 05:20 Nikolay Gama MD is Attending Physician. ec2 05:20 Patient has correct armband on for positive identification. Bed in low position. Call vc1 light in reach. Pulse ox on. NIBP on. 05:20 Provided Education on: change leg bag. vc1 05:30 BEVERLY BLANTON, RN is Primary Nurse. dd2 05:32 Som Bean MD is Referral Physician. ec2 05:39 Triage completed. vc1 05:40 Arm band placed on right wrist. vc1 05:43 No provider procedures requiring assistance completed. Patient did not have IV access vc1 during this emergency room visit. 05:46 changed carreno leg bag. vc1 Administered Medications: No medications were administered Medication: 05:45 VIS not applicable for this client. vc1 Outcome: 05:32 Discharge ordered by . ec2 05:45 Discharged to home ambulatory, dd2 05:45 Condition: stable 05:45 Discharge instructions given to patient, Instructed on discharge instructions, follow up and referral plans. Demonstrated understanding of instructions, follow-up care, 05:47 Patient left the ED. vc1 Signatures: Nellie [id number] Azul Jerome RN RN vc1 Nikolay Gama MD MD ec2 BEVERLY BLANTON RN RN dd2
[2024-08-09 05:57] VITALS: BP 155/105; TEMP 97.8; O2SAT 100
== END 2024-08-09 05:47 | disposition home or self-care (01) ==
LOC: ER 05:18
PROC: 0T2BX0Z Change Drainage Device in Bladder, External Approach (ICD-10-PCS; principal; 2024-08-09)
DX: T83.038A Leakage of other urinary catheter, initial encounter (principal)

== ENCOUNTER 2024-09-25 15:43 | Emergency (ER) | payer OTHER ==
--- NOTE | 2024-09-25 16:00 | ER ---
Nurse's Notes [facility] Name: Shannon Gill Age: 54 yrs Sex: Female : 1970 Arrival Date: 09/25/2024 Time: 15:43 Bed IW2 Private MD: Diagnosis: Leakage of urinary (indwelling) catheter Presentation: 09/25 15:54 Chief complaint: Patient states: Catheter bag has a leak. Coronavirus screen: Client ll1 denies travel out of the [place] in the last 14 days. At this time, the client does not indicate any symptoms associated with coronavirus-19. Ebola Screen: Patient denies travel to an Ebola-affected area in the 21 days before illness onset. Initial Sepsis Screen: Does the patient meet any 2 criteria? No. Patient's initial sepsis screen is negative. Does the patient have a suspected source of infection? No. Patient's initial sepsis screen is negative. Risk Assessment: Do you want to hurt yourself or someone else? Patient reports no desire to harm self or others. Onset of symptoms was September 25, 2024. 15:54 Method Of Arrival: Ambulatory ll1 15:54 Acuity: JOSSY 5 ll1 Triage Assessment: 15:55 General: Appears in no apparent distress. Behavior is calm, cooperative, appropriate ll1 for age. General: needs new urinary catheter bag. Hers has a small hole in it. Pain: Denies pain. 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 - Infectious Disease History:: Denies. - Social history:: Smoking status: unknown. Screenin:57 [facility] ED Fall Risk Assessment (Adult) History of falling in the last 3 months, ll1 including since admission No falls in past 3 months (0 pts) Confusion or Disorientation No (0 pts) Intoxicated or Sedated No (0 pts) Impaired Gait No (0 pts) Mobility Assist Device Used No (0 pt) Altered Elimination No (0 pt) Score/Fall Risk Level 0 - 2 = Low Risk Maintained a safe environment, Hourly rounding (assess needs \T\ fall precautionary measures) done. Abuse screen: Denies threats or abuse. Nutritional screening: No deficits noted. Tuberculosis screening: No symptoms or risk factors identified. Assessment: 15:56 Reassessment: changed leg bag, tolerated well. ll1 Vital Signs: 15:54 BP 146 / 108; Pulse 98; Resp 17; Temp 96.5; Pulse Ox 99% ; Pain 0/10; ll1 15:54 Pain Scale: Adult ll1 ED Course: 15:45 Patient arrived in ED. im 15:55 Triage completed. ll1 15:55 Arm band placed on. ll1 15:57 Patient has correct armband on for positive identification. Provided Education on: ll1 return to ED as needed. 15:57 No provider procedures requiring assistance completed. Patient did not have IV access ll1 during this emergency room visit. 15:59 Gary Lindsey FNP-C [facility]. dr5 15:59 Blayne Carmichael MD is Attending Physician. dr5 Administered Medications: No medications were administered Medication: 15:58 VIS not applicable for this client. ll1 Outcome: 15:57 Discharged to home ambulatory, ll1 15:57 Condition: stable 15:57 Discharge instructions given to patient, Instructed on discharge instructions, follow up and referral plans. Demonstrated understanding of instructions, follow-up care, left with verbal discharge instructions only 15:59 Discharge ordered by . dr5 16:00 Patient left the ED. ll1 Signatures: Asmita Mcfarlane, RN RN ll1 Bev Powell Gary Lindsey FNP-C LOG YARD MANAGER-Cdr5
[2024-09-25 16:15] VITALS: BP 146/108; TEMP 96.5; O2SAT 99
--- NOTE | 2024-09-26 16:00 | EDPHYS ---
Physician Documentation [facility] Name: Shannon Gill Age: 54 yrs Sex: Female : 1970 Arrival Date: 09/25/2024 Time: 15:43 Bed IW2 Private MD: ED Physician Blayne Carmichael HPI: 09/25 17:57 This 54 yrs old Female presents to ER via Ambulatory with complaints of Needs dr5 Urinary Catheter Replacement. 17:57 Patient reports urinary bag has a small hole in it. No other complaints. 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 - Infectious Disease History:: Denies. - Social history:: Smoking status: unknown. ROS: 17:57 Constitutional: as per hpi dr5 Exam: 17:57 Constitutional: This is a well developed, well nourished patient who is awake, alert, dr5 and in no acute distress. Head/Face: Normocephalic, atraumatic. Eyes: Pupils equal round and reactive to light, extra-ocular motions intact. Lids and lashes normal. Conjunctiva and sclera are non-icteric and not injected. Cornea within normal limits. Periorbital areas with no swelling, redness, or edema. Neck: Trachea midline, no thyromegaly or masses palpated, and no cervical lymphadenopathy. Supple, full range of motion without nuchal rigidity, or vertebral point tenderness. No Meningismus. Chest/axilla: Normal chest wall appearance and motion. Nontender with no deformity. No lesions are appreciated. Cardiovascular: Regular rate and rhythm with a normal S1 and S2. Normal PMI, no JVD. No pulse deficits. Respiratory: Lungs have equal breath sounds bilaterally, clear to auscultation. No rales, rhonchi or wheezes noted. No increased work of breathing, no retractions or nasal flaring. Abdomen/GI: Soft, non-tender, non-distended Back: No spinal tenderness. No costovertebral tenderness. Full range of motion. Skin: Warm, dry with normal turgor. Normal color with no rashes, no lesions, and no evidence of cellulitis. Neuro: Awake and alert, GCS 15, oriented to person, place, time, and situation. Cranial nerves II-XII grossly intact. Motor strength 5/5 in all extremities. Sensory grossly intact. Cerebellar exam normal. Normal gait. Vital Signs: 15:54 BP 146 / 108; Pulse 98; Resp 17; Temp 96.5; Pulse Ox 99% ; Pain 0/10; ll1 15:54 Pain Scale: Adult ll1 Procedures: 17:57 Magdaleno bag changed by RN.. dr5 MDM: 15:59 Medical Screening Exam initiated dr5 17:57 Differential diagnosis: Magdaleno bag malfunction. Data reviewed: vital signs, nurses dr5 notes. Care significantly affected by the following chronic conditions: Cervical cancer, diabetes, urinary retention. Care significantly affected by the following Social Determinants of Health: Poor access to healthcare and/or lack of insurance, Poor access to transportation, Problems related to employment. Counseling: I had a detailed discussion with the patient and/or guardian regarding the historical points, exam findings, and any diagnostic results supporting the discharge/admit diagnosis, the need for outpatient follow up, for definitive care, a family practitioner, a urologist. ED course: Magdaleno bag changed by RN. All questions answered. . Administered Medications: No medications were administered Disposition Summary: 09/25/24 15:59 Discharge Ordered Notes: Location: Home dr5 Condition: Stable dr5 Diagnosis - Leakage of urinary (indwelling) catheter dr5 Followup: dr5 - With: Emergency Department - When: As needed - Reason: Worsening of condition Followup: dr5 - With: Private Physician - When: 1 - 2 days - Reason: Recheck today's complaints, Continuance of care, Re-evaluation by your physician Forms: - Medication Reconciliation Form dr5 - Antibiotic Education dr5 - Prescription Opioid Use dr5 - Patient Portal Instructions dr5 - Leadership Thank You Letter dr5 Signatures: Asmita Mcfarlane RN RN ll1 Gary Lindsey, COMPUTER GRAPHIC ARTIST-C COMPUTER GRAPHIC ARTIST-Cdr5
== END 2024-09-25 16:00 | disposition home or self-care (01) ==
LOC: ER 15:43
DX: T83.038A Leakage of other urinary catheter, initial encounter (principal)
CPT/HCPCS: 99282

== ENCOUNTER 2024-10-14 09:40 | Emergency (ER) | payer OTHER ==
--- NOTE | 2024-10-14 10:00 | EDPHYS ---
Physician Documentation [facility] Name: Shannon Gill Age: 54 yrs Sex: Female : 1970 Arrival Date: 10/14/2024 Time: 09:40 Bed 4 Private MD: ED Physician Nikolay Gama HPI: 10/14 09:59 This 54 yrs old Female presents to ER via Unassigned with complaints of ec2 Problem With Urinary Catheter. 09:59 Patient arrives today with issues with her Magdaleno bag. States that it had started ec2 leaking. No other complaints. Has been otherwise been draining appropriately. . Historical: - PMHx: 10:01 cervical cancer; diabetes mellitus; urinary retention (diabetes mellitus ); iw ROS: 09:59 Constitutional: as per hpi ec2 Exam: 09:59 Constitutional: GEN: NAD Head: atraumatic Eyes: EOMI Ears: External ears are ec2 normal. CV: regular rate LUNGS: no respiratory distress ABD: non-distended SKIN: no evidence of rashes MSK: no evidence of trauma MDM: 09:57 Medical Screening Exam initiated ec2 09:59 Data reviewed: vital signs, nurses notes. ED course: Patient arrives today from leakage ec2 from her Magdaleno bag. Will place Magdaleno bag and discharge. Return precautions given.. 10/14 09:58 Order name: Magdaleno Leg Bag; Complete Time: 10:21 ec2 Administered Medications: No medications were administered Disposition Summary: 10/14/24 10:00 Discharge Ordered Notes: Location: Home ec2 Condition: Stable ec2 Diagnosis - Magdaleno Bag Leakage ec2 Followup: ec2 - With: Som Bean MD - When: - Reason: Recheck today's complaints Discharge Instructions: - Discharge Summary Sheet ec2 - Indwelling Urinary Catheter Insertion, Care After ec2 Forms: - Medication Reconciliation Form ec2 - Antibiotic Education ec2 - Prescription Opioid Use ec2 - Patient Portal Instructions ec2 - Leadership Thank You Letter ec2 Signatures: Maria Wagner RN RN iw Nikolay Gama MD MD ec2 Corrections: (The following items were deleted from the chart) 09:58 09:58 Magdaleno ordered. ec2 ec2
--- NOTE | 2024-10-14 10:22 | ER ---
Nurse's Notes [facility] Name: Shannon Gill Age: 54 yrs Sex: Female : 1970 Arrival Date: 10/14/2024 Time: 09:40 Bed 4 Private MD: Diagnosis: Magdaleno Bag Leakage Presentation: 10/14 10:00 Chief complaint: Patient states: her urine leg bag is leaking, there is a hole in it. iw Coronavirus screen: At this time, the client does not indicate any symptoms associated with coronavirus-19. Ebola Screen: No symptoms or risks identified at this time. Risk Assessment: Do you want to hurt yourself or someone else? Patient reports no desire to harm self or others. Onset of symptoms was October 14, 2024. 10:00 Method Of Arrival: Ambulatory iw 10:00 Acuity: JOSSY 4 iw Historical: - PMHx: 10:01 cervical cancer; diabetes mellitus; urinary retention (diabetes mellitus ); iw ED Course: :44 Patient arrived in ED. sj2 09:44 Nikolay Gama MD is Attending Physician. ec2 10:00 Som Bean MD is Referral Physician. ec2 10:00 Maria Wagner RN is Primary Nurse. iw 10:01 Triage completed. iw 10:01 Arm band placed on. iw 10:21 Maria Wagner RN is Primary Nurse. iw Administered Medications: No medications were administered Outcome: 10:00 Discharge ordered by . ec2 10:21 Patient left the ED. iw Signatures: Maria Wagner RN RN Nikolay Gama MD MD ec2 Juana Mistry sj2
== END 2024-10-14 10:21 | disposition home or self-care (01) ==
LOC: ER 09:40
DX: T83.038A Leakage of other urinary catheter, initial encounter (principal)
CPT/HCPCS: 99281

== ENCOUNTER 2024-12-14 07:51 | Emergency (ER) | payer OTHER, SELFPAY ==
--- NOTE | 2024-12-14 08:18 | ER ---
Nurse's Notes [facility] Name: Shannon Gill Age: 54 yrs Sex: Female : 1970 Arrival Date: 12/14/2024 Time: 07:51 Bed DX3 Private MD: Diagnosis: Mechanical complication of urinary (indwelling) catheter;Other mechanical complication of urinary (indwelling) catheter Presentation: 12/14 08:18 Chief complaint: Patient states: Urinary bag is leaking. Coronavirus screen: Client ll1 denies travel out of the [place] in the last 14 days. At this time, the client does not indicate any symptoms associated with coronavirus-19. Ebola Screen: Patient denies travel to an Ebola-affected area in the 21 days before illness onset. Initial Sepsis Screen: Does the patient meet any 2 criteria? No. Patient's initial sepsis screen is negative. Does the patient have a suspected source of infection? No. Patient's initial sepsis screen is negative. Risk Assessment: Do you want to hurt yourself or someone else? Patient reports no desire to harm self or others. 08:18 Method Of Arrival: Ambulatory [facility] 08:18 Acuity: JOSSY 4 ll1 08:20 Onset of symptoms was December 14, 2024. ll1 08:49 Onset of symptoms was December 14, 2024. 1 Triage Assessment: 08:20 General: Appears in no apparent distress. Behavior is cooperative, appropriate for age, ll1 restless. Pain: Denies pain. : Reports urinary bag leaking. 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 - Infectious Disease History:: Denies. - Family history:: not pertinent. - Social history:: Smoking status: Patient denies any tobacco usage or history of. Screenin:20 [facility] ED Fall Risk Assessment (Adult) History of falling in the last 3 months, ll1 including since admission No falls in past 3 months (0 pts) Confusion or Disorientation No (0 pts) Intoxicated or Sedated No (0 pts) Impaired Gait No (0 pts) Mobility Assist Device Used No (0 pt) Altered Elimination No (0 pt) Score/Fall Risk Level 0 - 2 = Low Risk Oriented to surroundings, Hourly rounding (assess needs \T\ fall precautionary measures) done. Abuse screen: Denies threats or abuse. Nutritional screening: No deficits noted. Tuberculosis screening: No symptoms or risk factors identified. Assessment: 08:45 Reassessment: No changes from previously documented assessment. Patient and/or family ll1 updated on plan of care and expected duration. Pain level reassessed. Patient is alert, oriented x 3, equal unlabored respirations, skin warm/dry/pink. Vital Signs: 08:20 BP 146 / 88; Pulse 95; Resp 17; Temp 97.5; Pulse Ox 99% ; Pain 0/10; ll1 08:20 Pain Scale: Adult ll1 ED Course: 07:52 Patient arrived in ED. cj3 08:09 Raciel Sung MD is Attending Physician. [facility] 08:18 Som Bean MD is Referral Physician. [facility] 08:18 Triage completed. ll1 08:18 Arm band placed on. ll1 08:49 Patient has correct armband on for positive identification. Provided Education on: ER ll1 procedures and process. 08:49 No provider procedures requiring assistance completed. Patient did not have IV access ll1 during this emergency room visit. Administered Medications: No medications were administered Medication: 08:49 VIS not applicable for this client. ll1 Outcome: 08:18 Discharge ordered by . [facility] 08:49 Patient left the ED. ll1 08:49 Discharged to home ambulatory, ll1 08:49 Condition: stable 08:49 Discharge instructions given to patient, Instructed on discharge instructions, follow up and referral plans. Demonstrated understanding of instructions, follow-up care, left with verbal discharge instructions only Signatures: Raciel Sung MD MD cha Lewis, Lynsay, RN RN ll1 Ester Demarco cj3
--- NOTE | 2024-12-14 08:18 | EDPHYS ---
Physician Documentation [facility] Name: Shannon Gill Age: 54 yrs Sex: Female : 1970 Arrival Date: 12/14/2024 Time: 07:51 Bed DX3 Private MD: ED Physician Raciel Sung HPI: 12/14 08:11 This 54 yrs old Female presents to ER via Unassigned with complaints of Needs jeaneth Urinary Catheter Replacement. 08:11 The patient presents with carreno leaking, needs bag. Onset: The symptoms/episode jeaneth began/occurred 2 day(s) ago. Modifying factors: The symptoms are alleviated by nothing, the symptoms are aggravated by nothing. Severity of symptoms: At their worst the symptoms were mild, in the emergency department the symptoms are unchanged. The patient has experienced similar episodes in the past, multiple times. 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 - Infectious Disease History:: Denies. - Family history:: not pertinent. - Social history:: Smoking status: Patient denies any tobacco usage or history of. ROS: 08:11 Constitutional: Negative for fever, chills, and weight loss, Eyes: Negative for injury, jeaneth pain, redness, and discharge, ENT: Negative for injury, pain, and discharge, Neck: Negative for injury, pain, and swelling, Cardiovascular: Negative for chest pain, palpitations, and edema, Respiratory: Negative for shortness of breath, cough, wheezing, and pleuritic chest pain, Abdomen/GI: Negative for abdominal pain, nausea, vomiting, diarrhea, and constipation, Back: Negative for injury and pain, MS/Extremity: Negative for injury and deformity, Skin: Negative for injury, rash, and discoloration, Neuro: Negative for headache, weakness, numbness, tingling, and seizure, Psych: Negative for depression, anxiety, suicide ideation, homicidal ideation, and hallucinations, Allergy/Immunology: Negative for hives, rash, and allergies, Endocrine: Negative for neck swelling, polydipsia, polyuria, polyphagia, and marked weight changes, Hematologic/Lymphatic: Negative for swollen nodes, abnormal bleeding, and unusual bruising, 08:11 : Positive for carreno bag leaking, Exam: 08:11 Constitutional: This is a well developed, well nourished patient who is awake, alert, jeaneth and in no acute distress. Head/Face: Normocephalic, atraumatic. Eyes: Pupils equal round and reactive to light, extra-ocular motions intact. Lids and lashes normal. Conjunctiva and sclera are non-icteric and not injected. Cornea within normal limits. Periorbital areas with no swelling, redness, or edema. ENT: Nares patent. No nasal discharge, no septal abnormalities noted. Tympanic membranes are normal and external auditory canals are clear. Oropharynx with no redness, swelling, or masses, exudates, or evidence of obstruction, uvula midline. Mucous membranes moist. Neck: Trachea midline, no thyromegaly or masses palpated, and no cervical lymphadenopathy. Supple, full range of motion without nuchal rigidity, or vertebral point tenderness. No Meningismus. Chest/axilla: Normal chest wall appearance and motion. Nontender with no deformity. No lesions are appreciated. Cardiovascular: Regular rate and rhythm with a normal S1 and S2. No gallops, murmurs, or rubs. Normal PMI, no JVD. No pulse deficits. Respiratory: Lungs have equal breath sounds bilaterally, clear to auscultation and percussion. No rales, rhonchi or wheezes noted. No increased work of breathing, no retractions or nasal flaring. Abdomen/GI: Soft, non-tender, with normal bowel sounds. No distension or tympany. No guarding or rebound. No evidence of tenderness throughout. Back: No spinal tenderness. No costovertebral tenderness. Full range of motion. Skin: Warm, dry with normal turgor. Normal color with no rashes, no lesions, and no evidence of cellulitis. MS/ Extremity: Pulses equal, no cyanosis. Neurovascular intact. Full, normal range of motion., bilateral aka Neuro: Awake and alert, GCS 15, oriented to person, place, time, and situation. Cranial nerves II-XII grossly intact. Motor strength 5/5 in all extremities. Sensory grossly intact. Cerebellar exam normal. Normal gait. Psych: Awake, alert, with orientation to person, place and time. Behavior, mood, and affect are within normal limits. 08:11 : CVA tenderness, is absent, Pelvic Exam: is not necessary for this patient, Bladder: is normal, non-distended, non-tender, a carreno is noted, bag leaking , needs new bag, Vital Signs: 08:20 BP 146 / 88; Pulse 95; Resp 17; Temp 97.5; Pulse Ox 99% ; Pain 0/10; ll1 08:20 Pain Scale: Adult ll1 MDM: 08:09 Medical Screening Exam initiated jeaneth 08:15 Differential diagnosis: nonspecific abdominal pain, urinary tract infection. Data jeaneth reviewed: vital signs, nurses notes. Consideration of Admission/Observation Escalation of care including admission/observation considered. I considered the following discharge prescriptions or medication management in the emergency department Medications were administered in the Emergency Department. See MAR. Test considered but Not performed: Labs: no labs. Care significantly affected by the following chronic conditions: urinary incontinence. Counseling: I had a detailed discussion with the patient and/or guardian regarding the historical points, exam findings, and any diagnostic results supporting the discharge/admit diagnosis, the need for outpatient follow up, for definitive care, a family practitioner, a urologist. 12/14 08:11 Order name: Carreno Leg Bag; Complete Time: 08:38 jeaneth Administered Medications: No medications were administered Disposition Summary: 12/14/24 08:18 Discharge Ordered Notes: Location: Home jeaneth Problem: new jeaneth Symptoms: have improved jeaneth Condition: Stable jeaneth Diagnosis - Mechanical complication of urinary (indwelling) catheter jeaneth - Other mechanical complication of urinary (indwelling) catheter jeaneth Followup: jeaneth - With: Private Physician - When: 2 - 3 days - Reason: Recheck today's complaints, Continuance of care, Re-evaluation by your physician Followup: jeaneth - With: Som Bean MD - When: 2 - 3 days - Reason: Recheck today's complaints, Continuance of care, Re-evaluation by your physician Discharge Instructions: - Discharge Summary Sheet jeaneth - Indwelling Urinary Catheter Care, Adult jeaneth - Indwelling Urinary Catheter Care, Adult, [id number] jeaneth Forms: - Medication Reconciliation Form jeaneth - Antibiotic Education jeaneth - Prescription Opioid Use jeaneth - Patient Portal Instructions jeaneth - Leadership Thank You Letter jeaneth Signatures: Raciel Sung MD MD cha Lewis, Lynsay RN RN ll1
== END 2024-12-14 08:49 | disposition home or self-care (01) ==
LOC: ER 07:51
DX: T83.038A Leakage of other urinary catheter, initial encounter (principal)

== ENCOUNTER 2025-01-12 23:13 | Emergency (ER) | payer SELFPAY ==
[2025-01-13 00:32] LABS: Specific Gravity > 1.030 (1.005-1.030); Sqamous Epithelial <5 /HPF (None Seen); Urine Bacteria <20 /HPF (<20); Urine Bilirubin NEGATIVE (Negative); Urine Blood Trace (Negative); Urine Clarity Extremely Turbid (Clear); Urine Color Colorless (Yellow); Urine Culture Reflex Order REFLEXED; Urine Glucose 4+ (Over) (Negative); Urine Ketones NEGATIVE (Negative); Urine Micro Reflex YN NO BILL MICROSCOPIC; Urine Mucus Slight /HPF (None Seen); Urine Nitrite NEGATIVE (Negative); Urine Protein NEGATIVE (Negative); Urine Urobilinogen Normal (Normal); Urine WBC >50 /HPF (<5); Urine WBC Clump Occasional /HPF (None Seen); Urine pH 6.5 (5.0-7.0)
--- NOTE | 2025-01-13 00:45 | ER ---
Nurse's Notes [facility] Name: Shannon Gill Age: 54 yrs Sex: Female : 1970 Arrival Date: 01/12/2025 Time: 23:13 Bed 17 Private MD: Diagnosis: Mechanical complication of urinary (indwelling) catheter;UTI/ Urinary tract infection, site not specified Presentation: 01/12 23:38 Chief complaint: Patient states: I am having bloody urine, earlier I tried to pee and jb4 was having a hard time so I pressed down really hard and a blood clot came out and now I cannot pee. Coronavirus screen: At this time, the client does not indicate any symptoms associated with coronavirus-19. Ebola Screen: No symptoms or risks identified at this time. Initial Sepsis Screen: Does the patient meet any 2 criteria? No. Patient's initial sepsis screen is negative. Does the patient have a suspected source of infection? No. Patient's initial sepsis screen is negative. Risk Assessment: Do you want to hurt yourself or someone else? Patient reports no desire to harm self or others. Onset of symptoms was January 12, 2025. Transition of care: patient was not received from another setting of care. 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 - Infectious Disease History:: Denies. - Social history:: Smoking status: Patient reports the use of cigarette tobacco products, smokes one pack cigarettes per day. - Family history:: not pertinent. Screenin/04 00:16 Clinical [place] Withdrawal Assessment for Alcohol, revised (CIWA-Ar):. [facility] ED cp4 Fall Risk Assessment (Adult) History of falling in the last 3 months, including since admission No falls in past 3 months (0 pts) Confusion or Disorientation No (0 pts) Intoxicated or Sedated No (0 pts) Impaired Gait No (0 pts) Mobility Assist Device Used No (0 pt) Altered Elimination No (0 pt) Score/Fall Risk Level 0 - 2 = Low Risk Oriented to surroundings, Maintained a safe environment, Assessed \T\ reinforced patient's understanding of fall precautions, Hourly rounding (assess needs \T\ fall precautionary measures) done. [facility] ED Fall Risk Assessment (Adult) History of falling in the last 3 months, including since admission. Abuse screen: Denies threats or abuse. Denies injuries from another. Nutritional screening: No deficits noted. Tuberculosis screening: No symptoms or risk factors identified. Assessment: 00:16 General: Appears in no apparent distress. comfortable, Behavior is calm, cooperative, cp4 appropriate for age. Pain: Denies pain. Neuro: Level of Consciousness is awake, alert, obeys commands, Oriented to person, place, time, situation, [employer] are equal bilaterally Moves all extremities. Gait is steady, Speech is normal, Facial symmetry appears normal, Pupils are PERRLA, Intact. Cardiovascular: Patient's skin is warm and dry. Respiratory: Airway is patent Respiratory effort is even, unlabored. GI: No signs and/or symptoms were reported involving the gastrointestinal system. : Reports blood clot in urinary catheter. EENT: No signs and/or symptoms were reported regarding the EENT system. Derm: No signs and/or symptoms reported regarding the dermatologic system. Musculoskeletal: No signs and/or symptoms reported regarding the musculoskeletal system. Vital Signs: 01/12 23:38 Weight 55.79 kg; Height 5 ft. 6 in. ; Pain 2/10; jb4 23:46 BP 120 / 93; Pulse 94; Resp 18; Temp 98.2; Pulse Ox 97% ; cp4 01/13 00:50 BP 120 / 93; Pulse 101; Resp 18; Pulse Ox 99% ; cp4 01/12 23:38 Body Mass Index 19.85 (55.79 kg, 167.64 cm) jb4 01/12 23:38 Pain Scale: Adult jb4 ED Course: 01/12 23:17 Patient arrived in ED. gm2 23:25 Raffaele Estrada MD is Attending Physician. rt 23:42 Triage completed. jb4 23:42 Arm band placed on right wrist. jb4 23:46 Aide Sol is Primary Nurse. cp4 01/13 00:15 Magdaleno cath inserted, using sterile technique, 18 Fr., returned clear yellow urine. cp4 Patient tolerated well. 00:16 Placed in gown. Bed in low position. Call light in reach. Side rails up X 1. cp4 00:16 No provider procedures requiring assistance completed. Patient did not have IV access cp4 during this emergency room visit. 00:44 Som Bean MD is Referral Physician. rt 00:51 Provided Education on: uti. cp4 Administered Medications: No medications were administered Medication: 00:16 VIS not applicable for this client. cp4 Outcome: 00:45 Discharge ordered by . rt 00:51 Discharged to home ambulatory, cp4 00:51 Condition: stable 00:51 Condition: stable 00:51 Discharge instructions given to patient, Instructed on discharge instructions, follow up and referral plans. medication usage, Demonstrated understanding of instructions, follow-up care, medications, Prescriptions given X 1, 00:51 Patient left the ED. cp4 Addendum: 01/16/2025 11:09 Addendum: Culture Results: Positive urine culture. No further action required. Bacteria s s sensitive to prescribed antibiotic. Signatures: Nelsy Munguia RN RN Yury Breen RN RN jb4 Raffaele Estrada MD MD rt Potter, Christina cp4 Aubree Davis 2
--- NOTE | 2025-01-13 00:45 | EDPHYS ---
Physician Documentation [facility] Name: Shannon Gill Age: 54 yrs Sex: Female : 1970 Arrival Date: 01/12/2025 Time: 23:13 Bed 17 Private MD: ED Physician Raffaele Estrada HPI: 01/13 01:08 This 54 yrs old Female presents to ER via Ambulatory with complaints of Blood rt In Catheter, Back Pain, Problem With Urinary Catheter. 01:08 Patient with chronic indwelling Magdaleno catheter presents to the ED with reported rt clogging of the Magdaleno catheter, states that there was a blood clot blocking it off, states that she was not able to urinate. Denies other pain, other acute complaints, symptoms are moderate in severity, no other aggravating or alleviating factors.. 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 - Infectious Disease History:: Denies. - Social history:: Smoking status: Patient reports the use of cigarette tobacco products, smokes one pack cigarettes per day. - Family history:: not pertinent. ROS: 01/13 01:08 Constitutional: Negative for fever, chills, and weight loss, Cardiovascular: Negative rt for chest pain, palpitations, and edema, Respiratory: Negative for shortness of breath, cough, wheezing, and pleuritic chest pain, Abdomen/GI: Negative for abdominal pain, nausea, vomiting, diarrhea, and constipation, Skin: Negative for injury, rash, and discoloration, Neuro: Negative for headache, weakness, numbness, tingling, and seizure, : Positive for Urinary retention, Exam: 01:08 Constitutional: This is a well developed, well nourished patient who is awake, alert, rt and in no acute distress. Head/Face: Normocephalic, atraumatic. Chest/axilla: Normal chest wall appearance and motion. Nontender with no deformity. No lesions are appreciated. Cardiovascular: Regular rate and rhythm with a normal S1 and S2. No gallops, murmurs, or rubs. Normal PMI, no JVD. No pulse deficits. Respiratory: Lungs have equal breath sounds bilaterally, clear to auscultation and percussion. No rales, rhonchi or wheezes noted. No increased work of breathing, no retractions or nasal flaring. Abdomen/GI: Soft, non-tender, with normal bowel sounds. No distension or tympany. No guarding or rebound. No evidence of tenderness throughout. Skin: Warm, dry with normal turgor. Normal color with no rashes, no lesions, and no evidence of cellulitis. MS/ Extremity: Pulses equal, no cyanosis. Neurovascular intact. Full, normal range of motion. 01:08 : Urinary catheter in place, appears to be draining, no blood noted in the leg bag, Vital Signs: 01/12 23:38 Weight 55.79 kg; Height 5 ft. 6 in. ; Pain 2/10; jb4 23:46 BP 120 / 93; Pulse 94; Resp 18; Temp 98.2; Pulse Ox 97% ; cp4 01/13 00:50 BP 120 / 93; Pulse 101; Resp 18; Pulse Ox 99% ; cp4 01/12 23:38 Body Mass Index 19.85 (55.79 kg, 167.64 cm) jb4 01/12 23:38 Pain Scale: Adult jb4 MDM: 01/12 23:27 Medical Screening Exam initiated rt 01/13 01:08 Differential diagnosis: UTI, hematuria, mechanical complication of Magdaleno catheter. Data rt reviewed: vital signs, nurses notes, lab test result(s). Test considered but Not performed: CT: Draining appropriately, no abdominal pain, CT scan is not indicated. Care significantly affected by the following chronic conditions: Diabetes. Counseling: I had a detailed discussion with the patient and/or guardian regarding the historical points, exam findings, and any diagnostic results supporting the discharge/admit diagnosis, lab results, the need for outpatient follow up. Response to treatment: the patient's symptoms have markedly improved after treatment. 01/12 23:46 Order name: UARambo; Complete Time: 00:41 rt 01/13 00:35 Order name: Urine Culture EDMS 01/12 23:46 Order name: Magdaleno; Complete Time: 00:15 rt Administered Medications: No medications were administered Disposition Summary: 01/13/25 00:45 Discharge Ordered Notes: Location: Home rt Problem: new rt Symptoms: have improved rt Condition: Stable rt Diagnosis - Mechanical complication of urinary (indwelling) catheter rt - UTI/ Urinary tract infection, site not specified rt Followup: rt - With: Som Bean MD - When: 2 - 3 days - Reason: Discharge Instructions: - Discharge Summary Sheet rt - Urinary Tract Infection, Adult rt Forms: - Medication Reconciliation Form rt - Antibiotic Education rt - Prescription Opioid Use rt - Patient Portal Instructions rt - Leadership Thank You Letter rt Prescriptions: - cefpodoxime 200 mg Oral tablet - take 1 tablet ORAL route every 12 hours with food; 14 tablet; Refills: 0, rt Product Selection Permitted Signatures: Dispatcher [employer] Yury Jennings RN RN jb4 Raffaele Estrada MD MD rt
[2025-01-13 00:57] VITALS: BP 120/93; TEMP 98.2
[2025-01-13 01:00] VITALS: O2SAT 99
== END 2025-01-13 00:51 | disposition home or self-care (01) ==
LOC: ER 23:13
DX: T83.098A Other mechanical complication of other urinary catheter, initial encounter (principal); N39.0 Urinary tract infection, site not specified; F17.210 Nicotine dependence, cigarettes, uncomplicated
CPT/HCPCS: 51702; 81001; 87077; 87086; 87088; 87186; 99284

== ENCOUNTER 2025-03-01 08:45 | Emergency (ER) | payer SELFPAY ==
--- NOTE | 2025-03-01 09:06 | ER ---
Nurse's Notes [facility] Name: Shannon Gill Age: 54 yrs Sex: Female : 1970 Arrival Date: 03/01/2025 Time: 08:45 Bed 20 Private MD: Diagnosis: Carreno bag exchange Presentation: 03/01 08:53 Chief complaint: Patient states: Needs Carreno bag replaced. Started leaking at 4 AM. ll1 Coronavirus screen: Client denies travel out of the [place] in the last 14 days. At this time, the client does not indicate any symptoms associated with coronavirus-19. Ebola Screen: Patient denies travel to an Ebola-affected area in the 21 days before illness onset. Initial Sepsis Screen: Does the patient meet any 2 criteria? No. Patient's initial sepsis screen is negative. Does the patient have a suspected source of infection? No. Patient's initial sepsis screen is negative. Risk Assessment: Do you want to hurt yourself or someone else? Patient reports no desire to harm self or others. Onset of symptoms was March 01, 2025. 08:53 Method Of Arrival: Ambulatory ll1 08:53 Acuity: JOSSY 5 ll1 Triage Assessment: 08:55 General: Appears in no apparent distress. Behavior is cooperative, appropriate for age, ll1 restless. Pain: Denies pain. : Reports carreno bag leaking. Historical: - Allergies: 08:48 No Known Allergies; ll1 - PMHx: 08:48 cervical cancer; diabetes mellitus; urinary retention (diabetes mellitus ); ll1 - Immunization history:: Adult Immunizations up to date. - Infectious Disease History:: Denies. - Social history:: Smoking status: Patient reports the use of cigarette tobacco products, denies chronic smoking, but will smoke occasionally. Screenin:00 [facility] ED Fall Risk Assessment (Adult) History of falling in the last 3 months, kc6 including since admission No falls in past 3 months (0 pts) Confusion or Disorientation No (0 pts) Intoxicated or Sedated No (0 pts) Impaired Gait No (0 pts) Mobility Assist Device Used No (0 pt) Altered Elimination No (0 pt) Score/Fall Risk Level 0 - 2 = Low Risk Oriented to surroundings. Abuse screen: Denies threats or abuse. Denies injuries from another. Nutritional screening: No deficits noted. Tuberculosis screening: No symptoms or risk factors identified. Assessment: 09:00 General: Appears in no apparent distress. comfortable, slender, unkempt, Behavior is kc6 calm, cooperative, appropriate for age. Pain: Denies pain. Neuro: Level of Consciousness is awake, alert, obeys commands, Oriented to person, place, time, situation, Appropriate for age. Respiratory: Airway is patent Trachea midline Respiratory effort is even, unlabored, Respiratory pattern is regular, symmetrical. : Carreno in place to gravity drainage clamped Urine is cloudy. Derm: No signs and/or symptoms reported regarding the dermatologic system. Skin is intact, is healthy with good turgor, Skin is pink, warm \T\ dry. 09:12 Reassessment: pt appears to have left before signing d/c papers. and weigh and charge worker made kc6 aware. Vital Signs: 08:53 BP 153 / 115; Pulse 98; Resp 17; Temp 97.5; Pulse Ox 98% on R/A; Weight 54.43 kg; ll1 Height 5 ft. 6 in. ; Pain 0/10; 08:53 Body Mass Index 19.37 (54.43 kg, 167.64 cm) ll1 08:53 Pain Scale: Adult ll1 ED Course: 08:47 Patient arrived in ED. mr 08:48 Arm band placed on Patient placed in an exam room, on a stretcher. ll1 08:49 Kirk Gonzales MD is Attending Physician. sp3 08:50 Annabelle Michael, MATT is Primary Nurse. kc6 08:55 Triage completed. ll1 09:00 Patient has correct armband on for positive identification. Bed in low position. Call kc6 light in reach. Side rails up X 1. Pulse ox on. NIBP on. Door closed. Noise minimized. Lights dimmed. Pillow given. Verbal reassurance given. 09:00 No provider procedures requiring assistance completed. Patient maintains SpO2 kc6 saturation greater than 95% on room air. 09:13 Patient did not have IV access during this emergency room visit. kc6 Administered Medications: No medications were administered Medication: 09:13 VIS not applicable for this client. kc6 Outcome: 09:06 Discharge ordered by . sp3 09:13 Discharged to home ambulatory, kc6 09:13 Condition: good 09:13 Patient left the ED. kc6 Signatures: Pepper Trujillo, Reg Reg mr Asmita Mcfarlane, RN RN ll1 Kirk Gonzales MD MD sp3 Annabelle Michael RN RN kc6
--- NOTE | 2025-03-01 09:06 | EDPHYS ---
Physician Documentation [facility] Name: Shannon Gill Age: 54 yrs Sex: Female : 1970 Arrival Date: 03/01/2025 Time: 08:45 Bed 20 Private MD: ED Physician Kirk Gonzales HPI: 03/01 09:04 This 54 yrs old Female presents to ER via Ambulatory with complaints of Needs sp3 Urinary Catheter Replacement. 09:04 54-year-old female with history of cervical cancer with indwelling Carreno being managed sp3 by her primary team presents for a switch out of the Carreno bag itself due to a hole. She denies any other malfunction regarding the Carreno insertion and tube. No other complaints and ROS negative.. Historical: - Allergies: 08:48 No Known Allergies; ll1 - PMHx: 08:48 cervical cancer; diabetes mellitus; urinary retention (diabetes mellitus ); ll1 - Immunization history:: Adult Immunizations up to date. - Infectious Disease History:: Denies. - Social history:: Smoking status: Patient reports the use of cigarette tobacco products, denies chronic smoking, but will smoke occasionally. ROS: 09:04 Constitutional: Negative for fever, chills, and weight loss, Eyes: Negative for injury, sp3 pain, redness, and discharge, ENT: Negative for injury, pain, and discharge, Neck: Negative for injury, pain, and swelling, Cardiovascular: Negative for chest pain, palpitations, and edema, Respiratory: Negative for shortness of breath, cough, wheezing, and pleuritic chest pain, Abdomen/GI: Negative for abdominal pain, nausea, vomiting, diarrhea, and constipation, Back: Negative for injury and pain, MS/Extremity: Negative for injury and deformity, Skin: Negative for injury, rash, and discoloration, Neuro: Negative for headache, weakness, numbness, tingling, and seizure, Psych: Negative for depression, anxiety, suicide ideation, homicidal ideation, and hallucinations, Allergy/Immunology: Negative for hives, rash, and allergies, Endocrine: Negative for neck swelling, polydipsia, polyuria, polyphagia, and marked weight changes, Hematologic/Lymphatic: Negative for swollen nodes, abnormal bleeding, and unusual bruising, 09:04 All other systems are negative, Exam: 09:05 Constitutional: This is a well developed, well nourished patient who is awake, alert, sp3 and in no acute distress. Head/Face: Normocephalic, atraumatic. Eyes: Pupils equal round and reactive to light, extra-ocular motions intact. Lids and lashes normal. Conjunctiva and sclera are non-icteric and not injected. Cornea within normal limits. Periorbital areas with no swelling, redness, or edema. Neck: Trachea midline, no thyromegaly or masses palpated, and no cervical lymphadenopathy. Supple, full range of motion without nuchal rigidity, or vertebral point tenderness. No Meningismus. Chest/axilla: Normal chest wall appearance and motion. Nontender with no deformity. No lesions are appreciated. Cardiovascular: Regular rate and rhythm with a normal S1 and S2. No gallops, murmurs, or rubs. Normal PMI, no JVD. No pulse deficits. Respiratory: Lungs have equal breath sounds bilaterally, clear to auscultation and percussion. No rales, rhonchi or wheezes noted. No increased work of breathing, no retractions or nasal flaring. Abdomen/GI: Soft, non-tender, with normal bowel sounds. No distension or tympany. No guarding or rebound. No evidence of tenderness throughout. Back: No spinal tenderness. No costovertebral tenderness. Full range of motion. Skin: Warm, dry with normal turgor. Normal color with no rashes, no lesions, and no evidence of cellulitis. MS/ Extremity: Pulses equal, no cyanosis. Neurovascular intact. Full, normal range of motion. Neuro: Awake and alert, GCS 15, oriented to person, place, time, and situation. Cranial nerves II-XII grossly intact. Motor strength 5/5 in all extremities. Sensory grossly intact. Cerebellar exam normal. Normal gait. Vital Signs: 08:53 BP 153 / 115; Pulse 98; Resp 17; Temp 97.5; Pulse Ox 98% on R/A; Weight 54.43 kg; ll1 Height 5 ft. 6 in. ; Pain 0/10; 08:53 Body Mass Index 19.37 (54.43 kg, 167.64 cm) ll1 08:53 Pain Scale: Adult ll1 MDM: 08:49 Medical Screening Exam initiated sp3 09:05 Data reviewed: vital signs, nurses notes. ED course: Carreno bag switched out. Crareno sp3 confirmed to be functional. Will safely discharge her home at this time.. 03/01 08:54 Order name: Rock. Order: Change carreno bag only; Complete Time: 09:09 sp3 Administered Medications: No medications were administered Disposition Summary: 03/01/25 09:06 Discharge Ordered Notes: Location: Home sp3 Condition: Stable sp3 Diagnosis - Carreno bag exchange sp3 Followup: sp3 - With: Private Physician - When: Upon discharge from the Emergency Department - Reason: Continuance of care Discharge Instructions: - Discharge Summary Sheet sp3 - Indwelling Urinary Catheter Care, Adult sp3 Forms: - Medication Reconciliation Form sp3 - Antibiotic Education sp3 - Prescription Opioid Use sp3 - Patient Portal Instructions sp3 - Leadership Thank You Letter sp3 Signatures: Asmita Mcfarlane, RN RN ll1 Kirk Gonzales MD MD sp3 Annabelle Michael RN RN [id number]
[2025-03-01 09:24] VITALS: BP 153/115; TEMP 97.5; O2SAT 98
== END 2025-03-01 09:13 | disposition home or self-care (01) ==
LOC: ER 08:45
DX: Z46.6 Encounter for fitting and adjustment of urinary device (principal)